=== PATIENT | female | born 1960 | race Caucasian/White ===

== ENCOUNTER 2020-01-09 13:31 | Outpatient (REF) | payer OTHER, SELFPAY ==
--- NOTE | 2020-01-09 | MM_ITS ---
EXAMINATION: MM SCREENING DIGITAL BREAST TOMOSYNTHESIS, BILATERAL CLINICAL INFORMATION: Screening. Asymptomatic. The lifetime risk of breast cancer based on the Tyrer-Cuzick Model is 12%. COMPARISON: Mammography: 08/31/2018, 08/20/2017 TECHNIQUE: Digital breast tomosynthesis is performed in both the craniocaudal and mediolateral oblique views along with computer-aided detection (CAD). Synthesized 2D images are generated from the tomosynthesis. Additional exaggerated right CC view is provided. FINDINGS: There are scattered areas of fibroglandular density (ACR BI-RADS breast composition Category b). There are no significant masses, abnormal calcifications, or other abnormalities. There are scattered bilateral punctate round and coarse round calcifications again seen. Biopsy clip marker central right breast again seen. The synthesized 2-D images have some digital processing artifact lateral anterior left on CC view and retroareolar right MLO view with no correlate on other synthesized view or on the tomography. MM/MM tomosynthesis screening BI IMPRESSION: No mammographic evidence of malignancy. ASSESSMENT: BI-RADS 2: Benign RECOMMENDATION: Routine annual mammography screening. This patient's information was entered into a reminder system with a target due date for their next mammogram.
== END 2020-01-09 13:32 | disposition home or self-care (01) ==
LOC: HO.MAMMO 13:31
PROVIDERS: Visit Provider Internal Medicine
DX: Z12.31 Encounter for screening mammogram for malignant neoplasm of breast (principal)
CPT/HCPCS: 77063; 77067

== ENCOUNTER 2021-02-13 11:53 | Outpatient (REF) | payer OTHER, SELFPAY ==
--- NOTE | ~2021-02-13 | MM_ITS ---
EXAMINATION: MM SCREENING DIGITAL BREAST TOMOSYNTHESIS, BILATERAL CLINICAL INFORMATION: Screening. Asymptomatic. The lifetime risk of breast cancer based on the Tyrer-Cuzick Model is 7%. COMPARISON: Mammography: 01/09/2020, 08/31/2018, 08/20/2017 TECHNIQUE: Digital breast tomosynthesis is performed in both the craniocaudal and mediolateral oblique views along with computer-aided detection (CAD). Synthesized 2D images are generated from the tomosynthesis. FINDINGS: There are scattered areas of fibroglandular density (ACR BI-RADS breast composition Category b). There are no significant masses, abnormal calcifications, or other abnormalities. Parenchymal pattern is similar to prior studies. No developing density. There is a biopsy clip marker again noted central 12:00 right breast mid depth. Scattered bilateral coarse and benign punctate calcifications are again seen. No significant changes. MM/MM tomosynthesis screening BI IMPRESSION: No mammographic evidence of malignancy. ASSESSMENT: BI-RADS 2: Benign RECOMMENDATION: Routine annual mammography screening. This patient's information was entered into a reminder system with a target due date for their next mammogram.
== END 2021-02-13 11:54 | disposition home or self-care (01) ==
LOC: HO.MAMMO 11:53
PROVIDERS: Visit Provider Internal Medicine
DX: Z12.31 Encounter for screening mammogram for malignant neoplasm of breast (principal)
CPT/HCPCS: 77063; 77067

== ENCOUNTER 2021-10-01 06:12 | Outpatient (REF) | payer OTHER, SELFPAY ==
[2021-10-01 06:17] LABS: MANUAL DIFF FLAG NO
[2021-10-01 07:26] LABS: Basophils Percent Auto 0.7 % (0-2); Eosinophils Absolute Auto 0.3 X10*3/uL (0.0-0.4); Eosinophils Percent Auto 7.9 % (0-4); Hematocrit 41.6 % (37.0-47.0); Hemoglobin 13.8 g/dl (12.0-16.0); Imm Gran Abs Auto 0.01 X10*3/uL (0.00-0.03); Imm Gran Pct Auto 0.2 % (0.0-0.4); Lymphocytes Absolute Auto 0.9 X10*3/uL (1.2-4.9); Lymphocytes Percent Auto 22.9 % (20-40); Mean Corpuscular HGB Conc 33.2 g/dl (31.0-35.0); Mean Corpuscular Hemoglobin 30.3 pg (27.0-33.0); Mean Corpuscular Volume 91.4 fL (80.0-98.0); Mean Platelet Volume 11.2 fL (9.4-12.3); Monocytes Absolute Auto 0.2 X10*3/uL (0.1-1.2); Monocytes Percent Auto 5.9 % (2-11); Neutrophils Absolute Auto 2.5 x10*3/uL (2.0-8.3); Neutrophils Percent Auto 62.4 % (45-73); Platelet Count 190 X10*3/uL (160-400); Red Blood Count 4.55 X10*6/uL (4.20-5.50); Red Cell Distribution Width 12.8 % (11.0-16.0); White Blood Count 4.1 X10*3/uL (4.8-10.8)
[2021-10-01 07:45] LABS: Alanine Aminotransferase 21 U/L (0-31); Albumin Level 4.1 g/dL (3.5-5.0); Alkaline Phosphatase 76 U/L (39-117); Anion Gap 14 (12-20); Aspartate Amino Transferase 17 U/L (5-31); Bilirubin Total 0.6 mg/dL (0.0-1.0); Blood Urea Nitrogen 14 mg/dL (9-16); Calcium 9.4 mg/dL (8.4-10.2); Carbon Dioxide 27 mmol/L (22-29); Chloride 105 mmol/L (96-108); Cholesterol 254 mg/dL; Estimated Glomerular Filt Rate > 60; Glucose Fasting 91 mg/dL (60-99); HDL Cholesterol 54 mg/dL; LDL Cholesterol Calculated 172 mg/dl; Potassium 4.3 mmol/L (3.3-5.1); Sodium 142 mmol/L (135-145); Total Protein 6.8 g/dL (6.5-8.0); Triglycerides 144 mg/dL
[2021-10-01 08:08] LABS: Thyroid Stimulating Hormone 7.77 uIU/mL (0.32-4.0); Vitamin D 25-OH Total 33.6 ng/mL (>30)
== END 2021-10-01 06:13 | disposition home or self-care (01) ==
LOC: HO.LAB 06:12
PROVIDERS: PCP Internal Medicine; Visit Provider Internal Medicine
DX: Z00.00 Encounter for general adult medical examination without abnormal findings (principal); E66.9 Obesity, unspecified; Z68.37 Body mass index [BMI] 37.0-37.9, adult; E55.9 Vitamin D deficiency, unspecified
CPT/HCPCS: 36415; 80053; 80061; 82306; 84443; 85025

== ENCOUNTER 2021-11-12 11:14 | Outpatient (REF) | payer OTHER, SELFPAY ==
[2021-11-12 12:27] LABS: Thyroid Stimulating Hormone 3.42 uIU/mL (0.32-4.0); Vitamin D 25-OH Total 34.4 ng/mL (>30)
[2021-11-14 18:46] LABS: Thyroid Peroxidase Antibodies 8 IU/mL (<9)
[2021-11-15 05:17] LABS: Thyroglobulin Antibodies 54 IU/mL (< or = 1)
== END 2021-11-12 11:15 | disposition home or self-care (01) ==
LOC: HO.LAB 11:14
PROVIDERS: PCP Internal Medicine; Visit Provider Internal Medicine
DX: R79.89 Other specified abnormal findings of blood chemistry (principal); E55.9 Vitamin D deficiency, unspecified
CPT/HCPCS: 36415; 82306; 84439; 84443; 86376; 86800

== ENCOUNTER 2021-11-25 08:00 | Outpatient (REF) | payer OTHER, SELFPAY ==
[2021-11-26 13:28] LABS: BV Int Neg Control Negative (Negative); BV Int Pos Control Positive (Positive)
[2021-11-27 13:22] LABS: HPV mRNA E6/E7 rflx Not Detected (Not Detected)
== END 2021-11-25 08:01 | disposition home or self-care (01) ==
LOC: HO.LNP 08:00
PROVIDERS: PCP Internal Medicine; Visit Provider Advanced Practice Midwife
DX: Z01.419 Encounter for gynecological examination (general) (routine) without abnormal findings (principal); Z11.51 Encounter for screening for human papillomavirus (HPV); N95.2 Postmenopausal atrophic vaginitis; N84.1 Polyp of cervix uteri
CPT/HCPCS: 58558; 87480; 87510; 87624; 87660; 88142

== ENCOUNTER 2021-11-25 09:18 | Outpatient (REF) | payer OTHER, SELFPAY | END 2021-11-25 09:19 | disposition home or self-care (01) | LOC: HO.LAB 09:18 | PROVIDERS: Visit Provider Advanced Practice Midwife | DX: N84.1 Polyp of cervix uteri (principal) | CPT/HCPCS: 88305 ==

== ENCOUNTER 2022-02-18 12:08 | Outpatient (REF) | payer OTHER, SELFPAY ==
--- NOTE | ~2022-02-18 | MM_ITS ---
EXAMINATION: MM SCREENING DIGITAL BREAST TOMOSYNTHESIS, BILATERAL CLINICAL INFORMATION: Screening. Asymptomatic. The lifetime risk of breast cancer based on the Tyrer-Cuzick Model is 7.0%. COMPARISON: Mammography: 02/13/2021 and studies dating back to 06/06/2015. TECHNIQUE: Digital breast tomosynthesis is performed in both the craniocaudal and mediolateral oblique views along with computer-aided detection (CAD). Synthesized 2D images are generated from the tomosynthesis. FINDINGS: There are scattered areas of fibroglandular density (ACR BI-RADS breast composition Category b). Within the medial aspect of the right breast, there is an irregular density containing some microcalcifications for which spot magnification views are recommended. Within the left breast deep aspect there are a few new or increasing grouping of microcalcifications for which spot magnification views in craniocaudal and 90-degree mediolateral views are recommended. MM/MM tomosynthesis screening BI IMPRESSION: Bilateral breast findings for further evaluation as described. ASSESSMENT: BI-RADS 0: Incomplete - Need Additional Imaging Evaluation RECOMMENDATION: 1. Additional views of the bilateral breasts. 2. Targeted ultrasound if warranted after review of the additional views. 3. Radiology department staff will contact the patient for additional imaging.
== END 2022-02-18 12:09 | disposition home or self-care (01) ==
LOC: HO.MAMMO 12:08
PROVIDERS: PCP Internal Medicine; Visit Provider Internal Medicine
DX: Z12.31 Encounter for screening mammogram for malignant neoplasm of breast (principal)
CPT/HCPCS: 77063; 77067

== ENCOUNTER 2022-03-03 14:32 | Outpatient (REF) | payer OTHER, SELFPAY ==
--- NOTE | ~2022-03-03 | MM_ITS ---
EXAMINATION: MM DIAGNOSTIC DIGITAL MAMMOGRAPHY, BILATERAL CLINICAL INFORMATION: Recall from screening for calcifications posterior left breast and question calcifications with density medial right breast. TC score 7%. No known family history breast cancer. COMPARISON: Mammography: 02/18/2022, 02/13/2021, 01/09/2020 TECHNIQUE: Digital mammography is performed in the following views: Bilateral magnification CC, right magnification LM, left magnification ML x2. FINDINGS: There are scattered areas of fibroglandular density (ACR BI-RADS breast composition Category b). Additional views right breast show no significant change and fibroglandular pattern from prior studies. No developing density or architectural abnormality or interval focal abnormal calcification. Additional views left breast shows some interval scattered punctate round calcifications posterior central outer breast. There is also grouped benign appearing round and coarse calcification posterior central breast. The calcifications are similar to other calcifications in the left breast and are probably benign. They will be reassessed again in 6 months to include magnification views. Results are discussed with the patient at time of visit. MM/MM added views BI IMPRESSION: Left: -Interval scattered punctate round calcifications and some grouped round and coarse calcifications posterior central outer breast, similar to other calcifications in the breast, and probably benign. Right: -No significant changes from prior studies. ASSESSMENT: BI-RADS 3: Probably Benign RECOMMENDATION: Diagnostic left mammography in 6 months. This patient's information was entered into a reminder system with a target due date for their next mammogram.
== END 2022-03-03 14:33 | disposition home or self-care (01) ==
LOC: HO.MAMMO 14:32
PROVIDERS: Visit Provider Internal Medicine
DX: R92.2 Inconclusive mammogram (principal); R92.1 Mammographic calcification found on diagnostic imaging of breast
CPT/HCPCS: 77066

== ENCOUNTER 2022-09-16 09:28 | Outpatient (AMB) | payer OTHER, SELFPAY ==
--- NOTE | 2022-09-16 09:30 | MHC.PC.OV ---
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 Required: No Accompanied by: Self / Same As Patient Allergies cat dander [CAT] Allergy (Unknown, Verified 09/16/22 09:43) DIFFICULTY BREATHING Medication List - Last Reconciled 09/16/22 by Bertha Ramírez MD beclomethasone dipropionate 40 mcg/actuation mcg inhalation ibuprofen 400 mg PO TID PRN 90 days Tobacco use date assessed: 09/16/22 Dental Screening Dental Screen Date: 09/16/22 Did you have a dental visit in the last 12 months?: Yes Did you have a dental problem in the last 6 months where you did not have access to dental care?: No Was dental information given to patient?: Patient has dentist HPI HPI Comments History of Present Illness Details This is a 61-year-old female that comes for her physical exam. Last mammogram was February 2022 and will be repeated this week. Cologuard done 2021 and was negative. Pap smear done 2021 was HPV negative. No chest pain or shortness of breath. Last menstrual period was 9 years ago. [facility], [facility] Medical History Osteoarthritis Surgical History History of appendectomy Status post ablation of incompetent vein using laser Family History Mother Cardiac arrest Father Poor circulation of extremity Family/Other Mental health disorder Substance use disorder Brother Prostate cancer Social History Housing: House Alcohol intake: current Alcohol intake frequency: a few times a week Alcohol type: other Patient Tobacco Use Status: Former Tobacco user Tobacco use type: Cigarette e-Cigarette/Vaping Use: Never Used Second Hand Smoke Exposure: No service: No Current occupational status: retired Sexual orientation: Lesbian/Edouard/Homosexual Gender identity: Female Cognitive needs: No Hearing needs: No Vision needs: Yes Questionnaire PHQ-9 Over the last 2 weeks, how often have you been bothered by any of the following problems? 1. Little interest or pleasure in doing things: not at all 2. Feeling down, depressed, or hopeless: not at all 3. Trouble falling or staying asleep, or sleeping too much: not at all 4. Feeling tired or having little energy: not at all 5. Poor appetite or overeating: not at all 6. Feeling bad about yourself - or that you are a failure or have let yourself or your family down: not at all 7. Trouble concentrating on things, such as reading the newspaper or watching television: not at all 8. Moving or speaking so slowly that other people could have noticed. Or the opposite - being so fidgety or restless that you have been moving around a lot more than usual: not at all 9. Thoughts that you would be better off or of hurting yourself in some way: not at all Total score: 0 Depression Screening Interpretation: Negative 04605 - PHQ-9 Billing: Yes Source: Developed by Drs. Brett Neville, Ava Dempsey, Víctor Ca and colleagues, with an educational shannan from [employer]. Thrive Questionnaire Date Thrive assessed: 09/16/22 I am a: Patient What is your living situation today?: I have a steady place to live Within the past 12 months, did the food you bought not last and you didn't have the money to get more?: Never true Within the past 12 months, did you worry whether your food would run out before you got money to buy more?: Never true Do you have trouble paying for medicines?: No Do you have trouble getting transportation to medical appointments?: No Do you have trouble paying your heating and electricity bill?: No Do you have trouble taking care of your child, family member or friend?: No Do you have trouble with day-to-day activities such as bathing, preparing meals, shopping, managing finances, etc.?: No Are you currently unemployed and looking for a job?: No Are you interested in more education?: No Please select the resources that you would like help with: None Currently or been in a relationship where the following occur: no concerns reported AUDIT C Alcohol Use Questionnaire (AUDIT-C) 1. How often do you have a drink containing alcohol?: 2-3 times a week 2. How many drinks containing alcohol do you have on a typical day when you are drinking?: 1 or 2 3. How often do you have six or more drinks on one occasion?: Never Total Score: 3 SUN-7 AMB Questionnaire SUN-7 Date SUN - 7 assessed: 09/16/22 Feeling nervous, anxious, or on edge: 0 = Not at all Not being able to stop or control worryin = Not at all Worrying too much about different things: 0 = Not at all Trouble relaxin = Not at all Being so restless that it is hard to sit still: 0 = Not at all Becoming easily annoyed or irritable: 0 = Not at all Feeling afraid as if something awful might happen: 0 = Not at all Total SUN-7 score (0-4 normal; 5-9 mild; 10-14 moderate; 15-21 severe): 0 Source: Developed by Drs. Brett Neville, Ava Dempsey, Víctor Ca and colleagues, with an educational shannan from [employer]. SUN-7 Assessment Billing SUN-7 Assessment Tool: SUN-7 Assessment 91289 Review of Systems Const All systems reviewed & are unremarkable except as noted in HPI and below Eyes Reports no additional complaints, Denies change in vision and Denies other visual disturbances Card Denies chest pain at rest, Denies chest pain with activity, Denies edema, Denies irregular heart rhythm, Denies claudication, Denies dyspnea, Denies dyspnea on exertion, Denies orthopnea, Denies paroxysmal nocturnal dyspnea and Denies slow heart rate Resp Denies cough, Denies dyspnea and Denies dyspnea on exertion GI Denies abdominal pain, Denies change in bowel habits, Denies excessive flatus, Denies nausea and Denies vomiting Denies urinary incontinence, Denies urinary hesitancy and Denies urinary urgency Musc Denies abnormal gait, Denies atrophy, Denies deformity and Denies limited range of motion Skin/Breast Denies bleeding lesions, Denies changing lesions and Denies rash Neuro Denies abnormal gait and Denies lack of coordination Physical exam (Primary Care) Vital Signs: Last Vital Signs BP 124/70 09/16/22 09:33 BMI result Body Mass Index 37.3 Tobacco/Smoking Status: Tobacco use Status Tobacco use date assessed 09/16/22 09/16/22 09:35 Patient Tobacco Use Status Former Tobacco user 09/16/22 09:35 Tobacco use type Cigarette 09/16/22 09:35 e-Cigarette/Vaping Use Never Used 09/16/22 09:35 PHQ-9: PHQ-9 Score PHQ-9: Total score 0 09/16/22 09:35 Depression Screening Interpretation: Negative Thrive Assessment: Date of Thrive Assessment Date Thrive assessed 09/16/22 09/16/22 09:35 Currently or been in a relationship where the following occur: no concerns reported Const Orientation/consciousness: patient oriented x3 HENMT Head: Yes normal to inspection, Yes normocephalic and Yes atraumatic Ears: external ears normal Eyes General: appearance normal, both eyes and all related structures Eyelids: Yes eyelids normal Conjunctivae: conjunctivae normal Neck Neck: Yes normal visual inspection and Yes supple Resp Effort & Inspection: normal respiratory effort Auscultation: clear to auscultation bilaterally Cardio Jugular venous distension: no JVD Rate: regular rate Rhythm: regular rhythm Heart sounds: S1 normal heart sound present and S2 normal heart sound present GI Inspection: Yes normal to inspection Palpation (GI): Soft to palpation and nontender Auscultation: normal bowel sounds Skin General skin exam: no rashes or lesions noted Neuro General: patient oriented x3 and no focal motor deficits Extrem General: Yes full ROM Psych Appearance: grossly normal Assessment and Plan Assessment & Plan (1) Physical exam: Code(s): Z00.00 - Encounter for general adult medical examination without abnormal findings Plan: Repeat in a year Orders: Orders Comprehensive [place]. Panel Fast Today Z00.00 - Encounter for general adult medical examination without abnormal findings Lipid Panel Today Z00.00 - Encounter for general adult medical examination without abnormal findings Free T4 (Free Thyroxine) Today R79.89 - Other specified abnormal findings of blood chemistry Thyroid Stimulating Hormone Today R79.89 - Other specified abnormal findings of blood chemistry XR DEXA axial skeleton Today N95.9 - Unspecified menopausal and perimenopausal disorder Medications: Refilled ibuprofen 400 mg PO TID 90 days PRN 270 tabs 1RF fever or pain Coding Level of Care Code Est Pt Prev Care 40-64y(32361) Diagnoses Physical exam Z00.00 Additional Codes SUN-7 Assessment Billing - SUN-7 Assessment Tool: SUN-7 Assessment [id number] ([id number]) Time Spent (min) 33
[2022-09-16 09:33] VITALS: BP 124/70; BMI 37.3
== END 2022-09-16 09:57 | disposition home or self-care (01) ==
PROVIDERS: PCP Internal Medicine; Visit Provider Internal Medicine
DX: Z00.00 Encounter for general adult medical examination without abnormal findings (principal)
CPT/HCPCS: 99396

== ENCOUNTER 2022-09-18 09:59 | Outpatient (REF) | payer OTHER, SELFPAY ==
--- NOTE | ~2022-09-18 | MM_ITS ---
EXAMINATION: BONE DENSITOMETRY CLINICAL INDICATION: Menopause. COMPARISON: Baseline BD dated 01/31/2013. TECHNIQUE: Using a Mixbook DXA System (software version: 13.1) manufactured by [employer], dual-energy x-ray absorptiometry was performed of the lumbar spine and left hip. The images are of good technical quality. Summary results are attached. FINDINGS: LEFT FEMUR, NECK: Current: BMD 1.076 g/cm2, Z-score 1.2, T-score 0.3, normal. Baseline: BMD 1.065 g/cm2. LEFT FEMUR, TOTAL: Current: BMD 1.254 g/cm2, Z-score 2.6, T-score 2.0, normal, 2.5% increase from baseline (<5% change is not significant). Baseline: BMD 1.224 g/cm2. AP SPINE L1-L4: Current: BMD 1.345 g/cm2, Z-score 2.2, T-score 1.4, normal, 0.7% increase from baseline (<5% change is not significant). Baseline: BMD 1.336 g/cm2. IDENTIFIED RISK FACTORS: Menopause. HISTORY OF FRACTURE: None listed. MEDICATIONS: Calcium, multivitamin. MM/XR DEXA axial skeleton IMPRESSION: 1. DIAGNOSIS: Normal bone density based on the lowest T-score value of 0.3 in the femoral neck applying World Health Organization criteria. 2. 10-YEAR FRACTURE RISK PREDICTION, FRAX: According to the guidelines, FRAX calculation should only be performed on patients in the osteopenia bone density category. Therefore, FRAX was not performed on this patient. 3. Treatment Recommendations: NOF guidelines recommend consideration for treatment in postmenopausal women and men age 50 and older presenting with the following: -A hip or vertebral (clinical or morphometric) fracture. -T-score less than or equal to -2.5 at the femoral neck or spine after appropriate evaluation to exclude secondary causes. -Low bone mass at the hip or spine and a 10-year fracture probability by FRAX of greater than or equal to 3% for hip fracture or greater than or equal to 20% for major osteoporotic fracture based on the [place] adapted WHO algorithm. 4. Other Recommendations: All treatment decisions require clinical judgment and consideration of individual patient factors, including patient preferences, comorbidities, previous drug use, risk factors not captured in the FRAX model (e.g. frailty, falls, vitamin D deficiency, increased bone turnover, interval significant decline in bone density) and possible under or overestimation of fracture risk by FRAX. FUTURE SCAN RECOMMENDATION: People with diagnosed cases of osteoporosis or at high risk for fracture should have regular bone mineral density tests. For patients eligible for Medicare, routine testing is allowed once every 2 years. The testing frequency can be increased to one year for patients who have rapidly progressing disease, those who are receiving or discontinuing medical therapy to restore bone mass, or have additional risk factors.
--- NOTE | ~2022-09-18 | MM_ITS ---
EXAMINATION: MM DIAGNOSTIC DIGITAL BREAST TOMOSYNTHESIS, LEFT CLINICAL INFORMATION: Recommended short interval follow-up left mammography to evaluate calcifications. The lifetime risk of breast cancer based on the Tyrer-Cuzick Model is 7%. COMPARISON: Mammography: This study is compared with prior mammograms from February 2022 and mammograms from 2017, 2018, 2019 and 2020. TECHNIQUE: Digital breast tomosynthesis is performed in both the craniocaudal and mediolateral oblique views along with computer-aided detection (CAD). Synthesized 2D images are generated from the tomosynthesis. CC and lateral magnification imaging of the left breast. FINDINGS: There are scattered areas of fibroglandular density (ACR BI-RADS breast composition Category b). There are scattered benign calcifications in the left breast with no significant interval changes. There are no significant masses, abnormal calcifications, or other abnormalities. Results are provided to the patient at time of visit by the technologist. MM/MM tomosynthesis diagnostic LT IMPRESSION: No mammographic evidence of malignancy. ASSESSMENT: BI-RADS BI-RADS 2 - Benign Findings RECOMMENDATION: 1 year F/U The next routine bilateral annual screening mammogram is due in February 2023. This patient's information was entered into a reminder system with a target due date for their next mammogram.
== END 2022-09-18 10:00 | disposition home or self-care (01) ==
LOC: HO.MAMMO 09:59
PROVIDERS: PCP Internal Medicine; Visit Provider Internal Medicine
DX: Z13.820 Encounter for screening for osteoporosis (principal); Z78.0 Asymptomatic menopausal state; R92.1 Mammographic calcification found on diagnostic imaging of breast
CPT/HCPCS: 77061; 77065; 77080

== ENCOUNTER → 2022-09-18 10:00 | Outpatient (BNV) | payer OTHER, SELFPAY | PROVIDERS: PCP Internal Medicine; Visit Provider Radiology Diagnostic Radiology | DX: N95.9 Unspecified menopausal and perimenopausal disorder (principal) | CPT/HCPCS: 77065; 77080 ==

== ENCOUNTER 2022-10-02 06:57 | Outpatient (REF) | payer OTHER, SELFPAY ==
[2022-10-02 08:56] LABS: Alanine Aminotransferase 23 U/L (0-31); Albumin Level 3.9 g/dL (3.5-5.0); Alkaline Phosphatase 68 U/L (39-117); Anion Gap 13 (12-20); Aspartate Amino Transferase 19 U/L (5-31); Bilirubin Total 0.5 mg/dL (0.0-1.0); Blood Urea Nitrogen 16 mg/dL (9-16); Calcium 9.6 mg/dL (8.4-10.2); Carbon Dioxide 24 mmol/L (22-29); Chloride 110 mmol/L (96-108); Cholesterol 212 mg/dL; Estimated Glomerular Filt Rate > 60; Glucose Fasting 91 mg/dL (60-99); HDL Cholesterol 50 mg/dL; LDL Cholesterol Calculated 144 mg/dl; Potassium 4.1 mmol/L (3.3-5.1); Sodium 143 mmol/L (135-145); Total Protein 6.9 g/dL (6.5-8.0); Triglycerides 92 mg/dL
[2022-10-02 09:15] LABS: Free T4 (Free Thyroxine) 0.83 ng/dL (0.71-1.85); Thyroid Stimulating Hormone 4.04 uIU/mL (0.32-4.0)
== END 2022-10-02 06:58 | disposition home or self-care (01) ==
LOC: HO.LAB 06:57
PROVIDERS: PCP Internal Medicine; Visit Provider Internal Medicine
DX: Z00.00 Encounter for general adult medical examination without abnormal findings (principal); R94.6 Abnormal results of thyroid function studies; R79.89 Other specified abnormal findings of blood chemistry
CPT/HCPCS: 36415; 80053; 80061; 84439; 84443

== ENCOUNTER 2023-01-07 08:02 | Outpatient (AMB) | payer OTHER, SELFPAY ==
--- NOTE | 2023-01-07 08:04 | A.OFFVIS_ITS ---
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 She is doing well with no water and sewer systems superintendent concerns. Attempting to eat a healthy diet with calcium and vitamin D and stays active with exercise. She is taking One A Day Women Supplement . Currently sexually active. Reports vaginal dryness. She is using OTC replens moisturizer, with relief. Denies vaginal irritation. Last pap smear; 11/26/2021~negative. Last mammogram; 09/18/22~2Benign Findings. Colonoscopy is UTD. Denies any family history of breast, ovarian or colon cancer. Restless knees. Associated with cracking . Taking OTC tylenol for the pain when it occurs. She plans to follow up with her PCP for further eval. [facility] Medical History Osteoarthritis Surgical History Status post ablation of incompetent vein using laser History of appendectomy Family History Mother Cardiac arrest Father Poor circulation of extremity Family/Other Mental health disorder Substance use disorder Brother Prostate cancer Social History Housing: House Alcohol intake: current Alcohol intake frequency: a few times a week Alcohol type: other Patient Tobacco Use Status: Former Tobacco user Tobacco use type: Cigarette e-Cigarette/Vaping Use: Never Used Second Hand Smoke Exposure: No service: No Current occupational status: retired Sexual orientation: Lesbian/Edouard/Homosexual Gender identity: Female Cognitive needs: No Hearing needs: No Vision needs: Yes Female Reproductive History Menstrual Menopause type: natural Total pregnancies: 0 Date of last pap smear: 11/25/21 (neg pap and hpv) Date of Mammogram: 09/18/22 (Birad 2) Date of last Bone Density Screenin09/18/22 Review of Systems Const All systems reviewed & are unremarkable except as noted in HPI and below Reports as per HPI Eyes Reports no additional complaints ENT Reports no additional complaints Card Reports no additional complaints Resp Reports no additional complaints GI Reports as per HPI and Reports no additional complaints Reports as per HPI Musc Reports no additional complaints Skin/Breast Reports as per HPI Neuro Reports no additional complaints Psych Reports no additional complaints Endo Reports no additional complaints Wing/Lymph Reports no additional complaints Aller/Immun Reports no additional complaints Physical Exam Vital Signs: Last Vital Signs BP 116/74 01/07/23 08:05 BMI result Body Mass Index 36.1 Const General: cooperative, healthy appearing, no acute distress, well developed and alert Orientation/consciousness: patient oriented x3 HEENT Head: Yes normal to inspection Eyes General: appearance normal, both eyes and all related structures Neck Neck: Yes normal visual inspection Thyroid: Thyroid normal Chest Chest palpation & inspection: normal inspection of the chest and other (no puckering, dimpling, peau de orange, retraction, discharge, masses) Breast/axilla inspection: normal inspection of the breasts Breast/axilla palpation: normal palpation of the breasts Resp Effort & Inspection: normal respiratory effort GI Inspection: Yes normal to inspection Palpation (GI): Soft to palpation Rectal Exam - Female: deferred General: Yes bladder normal to palpation External Female Exam: normal external appearance and normal appearance of the urethra Speculum Exam - Vagina: normal appearance of the vagina, normal palpation and normal vaginal discharge Speculum Exam - Cervix: normal appearance of the cervix, normal palpation and Other cervical findings present (atrophic changes ) Bimanual exam- vagina & uterus: normal bimanual exam, normal palpation, uterine size normal, bladder normal to palpation, normal palpation and non-tender Bimanual Exam- Adnexa, other: no masses Skin General skin exam: no rashes or lesions noted Rashes: other (very slight redness on the left labial increased redness on the right labia) Neuro General: patient oriented x3 Cognition (Neuro): normal cognition Extrem General: Yes normal to inspection Psych Attitude: cooperative Thought process: Normal thought process present Assessment & Plan Assessment & Plan (1) Encounter for gynecological examination: Code(s): Z01.419 - Encounter for gynecological examination (general) (routine) without abnormal findings Plan: Discussed: Current recommendations for pap smears per ASCCP guidelines. Breast awareness, periodic self breast exams and yearly mammogram. Maintain a healthy lifestyle, well balanced diet including Calcium 1,200 mg and Vitamin D 600 IU daily, and routine exercise. Contact the office with any postmenopausal bleeding. All of her questions and concerns were addressed to the best of my ability. She will return in one year for AG. (2) Vulvar rash: Code(s): R21 - Rash and other nonspecific skin eruption Plan: Advised her to use OTC vaseline or aquaphor for up to a week. If not improving use OTC jock itch cream. Coding Level of Care Code Est Pt Prev Care 40-64y(24762) Diagnoses Encounter for gynecological examination Z01.419 Vulvar rash R21
[2023-01-07 08:05] VITALS: BP 116/74; BMI 36.1
== END 2023-01-07 08:35 | disposition home or self-care (01) ==
PROVIDERS: PCP Internal Medicine; Visit Provider Advanced Practice Midwife
DX: Z01.419 Encounter for gynecological examination (general) (routine) without abnormal findings (principal); R21 Rash and other nonspecific skin eruption
CPT/HCPCS: 99396

== ENCOUNTER → 2023-01-07 08:02 | Outpatient (BNVA) | payer OTHER, SELFPAY | PROVIDERS: PCP Internal Medicine; Visit Provider Advanced Practice Midwife ==

== ENCOUNTER 2023-03-17 08:56 | Outpatient (REF) | payer OTHER, SELFPAY ==
--- NOTE | ~2023-03-17 | MM_ITS ---
EXAMINATION: MM SCREENING DIGITAL BREAST TOMOSYNTHESIS, BILATERAL CLINICAL INFORMATION: Screening. Asymptomatic. COMPARISON: Mammography: This study is compared with prior exams dating back to 2018. TECHNIQUE: Digital breast tomosynthesis is performed in both the craniocaudal and mediolateral oblique views along with computer-aided detection (CAD). Synthesized 2D images are generated from the tomosynthesis. FINDINGS: There are scattered areas of fibroglandular density (ACR BI-RADS breast composition Category b). There are no significant masses, abnormal calcifications, or other abnormalities. There is tissue marker present in the right breast from prior benign percutaneous biopsy. Scattered benign calcifications are present in each breast. MM/MM tomosynthesis screening BI IMPRESSION: No mammographic evidence of malignancy. ASSESSMENT: BI-RADS BI-RADS 2 - Benign Findings RECOMMENDATION: Routine annual mammography screening. 1 year F/U This examination should not preclude the clinical evaluation of a suspicious palpable abnormality. This patient's information was entered into a reminder system with a target due date for their next mammogram.
== END 2023-03-17 08:57 | disposition home or self-care (01) ==
LOC: HO.MAMMO 08:56
PROVIDERS: PCP Internal Medicine; Visit Provider Internal Medicine
DX: Z12.31 Encounter for screening mammogram for malignant neoplasm of breast (principal)
CPT/HCPCS: 77063; 77067

== ENCOUNTER → 2023-03-17 09:00 | Outpatient (BNV) | payer OTHER, SELFPAY | PROVIDERS: PCP Internal Medicine; Visit Provider Radiology Diagnostic Radiology | DX: Z12.31 Encounter for screening mammogram for malignant neoplasm of breast (principal) | CPT/HCPCS: 77063; 77067 ==

== ENCOUNTER 2023-09-21 08:24 | Outpatient (AMB) | payer BC, SELFPAY ==
--- NOTE | 2023-09-21 08:25 | A.OFFPC_ITS ---
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 Accompanied by: Self / Same As Patient Allergies cat dander [CAT] Allergy (Unknown, Verified 09/21/23 08:45) DIFFICULTY BREATHING Medication List - Last Reconciled 09/21/23 by Bertha Ramírez MD beclomethasone dipropionate 40 mcg/actuation mcg inhalation calcium carbonate (Calcium 500) 500 mg PO DAILY flaxseed oil 1,000 mg PO DAILY fluoride (sodium) 1.1% 1 appl PO DAILY 30 days ibuprofen 400 mg PO TID PRN 90 days multivitamin 1 tab PO DAILY triamcinolone acetonide 0.1% 1 appl topical BID-TID Tobacco use date assessed: 09/21/23 Dental Screening Dental Screen Date: 09/21/23 Did you have a dental visit in the last 12 months?: Yes Did you have a dental problem in the last 6 months where you did not have access to dental care?: No Was dental information given to patient?: Patient has dentist HPI HPI Comments History of Present Illness Details This is a 62-year-old female that comes for her physical exam. Mammogram done 2023 and was normal. Cologuard done 2021 and was normal. Next Cologuard should be 2024. Pap smear done 2021 was normal. No chest pain or shortness on breath. She is obese with a BMI of 37.7 and was advised to do diet and exercise to reach BMI goal less than 30. She complains of bilateral hearing loss and would like a referral for a hearing test. [facility] Medical History (Updated 09/21/23 @ 09:01 by Bertha Ramírez MD) Osteoarthritis Surgical History Status post ablation of incompetent vein using laser History of appendectomy Family History Mother Cardiac arrest Father Poor circulation of extremity Family/Other Mental health disorder Substance use disorder Brother Prostate cancer Social History Housing: House Alcohol intake: current Alcohol intake frequency: a few times a week Alcohol ty pe: other Patient Tobacco Use Status: Former Tobacco user Tobacco use type: Cigarette e-Cigarette/Vaping Use: Never Used Second Hand Smoke Exposure: No service: No Current occupational status: retired Sexual orientation: Lesbian/Edouard/Homosexual Gender identity: Female Cognitive needs: No Hearing needs: No Vision needs: Yes Questionnaire PHQ-9 Over the last 2 weeks, how often have you been bothered by any of the following problems? 1. Little interest or pleasure in doing things: not at all 2. Feeling down, depressed, or hopeless: not at all 3. Trouble falling or staying asleep, or sleeping too much: not at all 4. Feeling tired or having little energy: not at all 5. Poor appetite or overeating: not at all 6. Feeling bad about yourself - or that you are a failure or have let yourself or your family down: not at all 7. Trouble concentrating on things, such as reading the newspaper or watching television: not at all 8. Moving or speaking so slowly that other people could have noticed. Or the opposite - being so fidgety or restless that you have been moving around a lot more than usual: not at all 9. Thoughts that you would be better off or of hurting yourself in some way: not at all Total score: 0 Depression Screening Interpretation: Negative Depression Screening Done: Yes 15549 - PHQ-9 Billing: Yes Source: Developed by Drs. Brett Neville, Ava Dempsey, Víctor Ca and colleagues, with an educational shannan from [employer]. Thrive Questionnaire Date Thrive assessed: 09/21/23 I am a: Patient What is your living situation today?: I have a steady place to live Within the past 12 months, did the food you bought not last and you didn't have the money to get more?: Never true Within the past 12 months, did you worry whether your food would run out before you got money to buy more?: Never true Do you have trouble paying for medicines?: No Do you have trouble getting transportation to medical appointments?: No Do you have trouble paying your heating and electricity bill?: No Do you have trouble taking care of your child, family member or friend?: No Do you have trouble with day-to-day activities such as bathing, preparing meals, shopping, managing finances, etc.?: No Are you currently unemployed and looking for a job?: No Are you interested in more education?: No Please select the resources that you would like help with: None Currently or been in a relationship where the following occur: No concerns reported THRIVE Score: 0 AUDIT C Alcohol Use Questionnaire (AUDIT-C) 1. How often do you have a drink containing alcohol?: Monthly or less 2. How many drinks containing alcohol do you have on a typical day when you are drinking?: 1 or 2 3. How often do you have six or more drinks on one occasion?: Never Total Score: 1 Score Reviewed/Action Taken: No SUN-7 AMB Questionnaire SUN-7 Date SUN - 7 assessed: 09/21/23 Feeling nervous, anxious, or on edge: 0 = Not at all Not being able to stop or control worryin = Not at all Worrying too much about different things: 0 = Not at all Trouble relaxin = Not at all Being so restless that it is hard to sit still: 0 = Not at all Becoming easily annoyed or irritable: 0 = Not at all Feeling afraid as if something awful might happen: 0 = Not at all Total SUN-7 score (0-4 normal; 5-9 mild; 10-14 moderate; 15-21 severe): 0 Source: Developed by Drs. Brett Neville, Ava Dempsey, Víctor Ca and colleagues, with an educational shannan from [employer]. SUN-7 Assessment Billing SUN-7 Assessment Tool: SUN-7 Assessment 59761 Review of Systems Const All systems reviewed & are unremarkable except as noted in HPI and below Card Denies chest pain at rest, Denies chest pain with activity, Denies edema, Denies irregular heart rhythm, Denies claudication, Denies dyspnea, Denies dyspnea on exertion, Denies orthopnea, Denies paroxysmal nocturnal dyspnea and Denies slow heart rate Resp Denies cough, Denies dyspnea and Denies dyspnea on exertion GI Denies abdominal pain, Denies change in bowel habits, Denies excessive flatus, Denies nausea and Denies vomiting Neuro Denies lack of coordination Physical exam (Primary Care) Vital Signs: Last Vital Signs BP 120/82 09/21/23 08:26 BMI result Body Mass Index 37.7 BMI Assessment/Plan discussion: High BMI High, discussed plan: lifestyle, weight reduction, dietary and physical activity Tobacco/Smoking Status: Tobacco use Status Tobacco use date assessed 09/21/23 09/21/23 08:30 Patient Tobacco Use Status Former Tobacco user 09/21/23 08:30 Tobacco use type Cigarette 09/21/23 08:30 e-Cigarette/Vaping Use Never Used 09/21/23 08:30 PHQ-9: PHQ-9 Score PHQ-9: Total score 0 09/21/23 08:30 Depression Screening Interpretation: Negative Thrive Assessment: Date of Thrive Assessment Date Thrive assessed 09/21/23 09/21/23 08:30 Currently or been in a relationship where the following occur: No concerns reported [facility] Head: Yes normal to inspection, Yes normocephalic and Yes atraumatic Ears: external ears normal Eyes General: appearance normal, both eyes and all related structures Eyelids: Yes eyelids normal Conjunctivae: conjunctivae normal Neck Neck: Yes normal visual inspection and Yes supple Resp Effort & Inspection: normal respiratory effort Auscultation: clear to auscultation bilaterally Cardio Jugular venous distension: no JVD Rate: regular rate Rhythm: regular rhythm Heart sounds: S1 normal heart sound present and S2 normal heart sound present GI Inspection: Yes normal to inspection Palpation (GI): Soft to palpation and nontender Auscultation: normal bowel sounds Skin General skin exam: no rashes or lesions noted Neuro General: no focal motor deficits Extrem General: Yes full ROM Psych Appearance: grossly normal Assessment and Plan Assessment & Plan (1) Physical exam: Code(s): Z00.00 - Encounter for general adult medical examination without abnormal findings Plan: Repeat in a year. (2) Hearing loss: Code(s): H91.90 - Unspecified hearing loss, unspecified ear Qualifiers: Hearing loss type: unspecified Laterality: bilateral Qualified Code(s): H91.93 - Unspecified hearing loss, bilateral Plan: Refer for hearing test. Orders: Orders Comprehensive [place]. Panel Fast Today Z00.00 - Encounter for general adult medical examination without abnormal findings Free T4 (Free Thyroxine) Today R79.89 - Other specified abnormal findings of blood chemistry Thyroglobulin Antibodies Today R79.89 - Other specified abnormal findings of blood chemistry Lipid Panel Today Z00.00 - Encounter for general adult medical examination without abnormal findings Thyroid Stimulating Hormone Today R79.89 - Other specified abnormal findings of blood chemistry Thyroid Peroxidase Antibodies Today R79.89 - Other specified abnormal findings of blood chemistry Referrals Speech and Hearing Referral H91.90 - Unspecified hearing loss, unspecified ear Coding Level of Care Code Est Pt Level 3 (88314) Est Pt Prev Care 40-64y(76237) Diagnoses Physical exam Z00.00 Bilateral hearing loss, unspecified hearing loss type H91.93 Hearing loss type: unspecified Laterality: bilateral Additional Codes SUN-7 Assessment Billing - SUN-7 Assessment Tool: SUN-7 Assessment [id number] ([id number]) Time Spent (min) 34
[2023-09-21 08:26] VITALS: BP 120/82; BMI 37.7
== END 2023-09-21 08:58 | disposition home or self-care (01) ==
PROVIDERS: PCP Internal Medicine; Visit Provider Internal Medicine
DX: Z00.00 Encounter for general adult medical examination without abnormal findings (principal); H91.93 Unspecified hearing loss, bilateral
CPT/HCPCS: 99396

== ENCOUNTER 2023-09-24 06:41 | Outpatient (REF) | payer BC, SELFPAY ==
[2023-09-24 07:52] LABS: Alanine Aminotransferase 25 U/L (0-31); Alkaline Phosphatase 86 U/L (39-117); Anion Gap 11 (12-20); Aspartate Amino Transferase 22 U/L (5-31); Bilirubin Total 0.4 mg/dL (0.0-1.0); Blood Urea Nitrogen 12 mg/dL (9-16); Calcium 10.1 mg/dL (8.4-10.2); Carbon Dioxide 30 mmol/L (22-29); Chloride 106 mmol/L (96-108); Cholesterol 216 mg/dL (<200); Estimated Glomerular Filt Rate > 60; Glucose Fasting 93 mg/dL (60-99); HDL Cholesterol 57 mg/dL (>40); LDL Cholesterol Calculated 139 mg/dL (<100); Potassium 4.2 mmol/L (3.3-5.1); Sodium 143 mmol/L (135-145); Total Protein 6.8 g/dL (6.5-8.0); Triglycerides 104 mg/dL (<150)
[2023-09-24 08:09] LABS: Free T4 (Free Thyroxine) 0.85 ng/dL (0.71-1.85); Thyroid Stimulating Hormone 5.93 uIU/mL (0.32-4.0)
[2023-09-25 09:49] LABS: Thyroglobulin Antibodies 8 IU/mL (< or = 1); Thyroid Peroxidase Antibodies 14 IU/mL (<9)
== END 2023-09-24 06:42 | disposition home or self-care (01) ==
LOC: HO.LAB 06:41
PROVIDERS: PCP Internal Medicine; Visit Provider Internal Medicine
DX: Z00.00 Encounter for general adult medical examination without abnormal findings (principal); Z13.6 Encounter for screening for cardiovascular disorders; R94.6 Abnormal results of thyroid function studies
CPT/HCPCS: 36415; 80053; 80061; 84439; 84443; 86376; 86800

== ENCOUNTER 2023-09-30 09:23 | Outpatient (REF) | payer BC, SELFPAY | END 2023-09-30 09:24 | disposition home or self-care (01) | LOC: HO.SH 09:23 | PROVIDERS: Visit Provider Internal Medicine | DX: Z01.118 Encounter for examination of ears and hearing with other abnormal findings (principal); H93.293 Other abnormal auditory perceptions, bilateral | CPT/HCPCS: 92557 ==

== ENCOUNTER 2023-11-09 07:02 | Outpatient (REF) | payer BC, SELFPAY ==
[2023-11-09 08:25] LABS: Free T4 (Free Thyroxine) 0.94 ng/dL (0.71-1.85); Thyroid Stimulating Hormone 4.67 uIU/mL (0.32-4.0)
[2023-11-11 07:02] LABS: Thyroglobulin Antibodies 7 IU/mL (< or = 1); Thyroid Peroxidase Antibodies 9 IU/mL (<9)
== END 2023-11-09 07:03 | disposition home or self-care (01) ==
LOC: HO.LAB 07:02
PROVIDERS: PCP Internal Medicine; Visit Provider Internal Medicine
DX: R79.89 Other specified abnormal findings of blood chemistry (principal)
CPT/HCPCS: 36415; 84439; 84443; 86376; 86800

== ENCOUNTER 2023-12-23 07:09 | Outpatient (REF) | payer BC, SELFPAY ==
[2023-12-23 09:06] LABS: Thyroid Stimulating Hormone 3.35 uIU/mL (0.32-4.0)
== END 2023-12-23 07:10 | disposition home or self-care (01) ==
LOC: HO.LAB 07:09
PROVIDERS: PCP Internal Medicine; Visit Provider Internal Medicine
DX: E06.3 Autoimmune thyroiditis (principal)
CPT/HCPCS: 36415; 84443

== ENCOUNTER 2024-02-02 13:00 | Outpatient (AMB) | payer BC, SELFPAY ==
[2024-02-02 14:02] VITALS: BP 112/66; PULSE 74; TEMP 36.1; O2SAT 97; BMI 37.2
--- NOTE | 2024-02-02 14:02 | MHC.OFFWIV ---
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 Pt states she was in [place] on a vacation on 01/01/24 and came home with a cold around 01/03 and states since then she has been having a lingering cough. 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 While every effort has been made to ensure accuracy, machine bookkeeper errors may have been included. The patient is a 63 year old female who presents to the clinic today with cough for the past month after URI. She denies fever, chills, shortness of breath. She denies any sputum production. She did try Mucinex last night but stat seemed to give her an upset stomach. She had traveled recently and developed the upper respiratory infection shortly after. She does have a history of asthma as a child. Has not had an albuterol inhaler in many years.. [facility] Medical History Osteoarthritis Surgical History Status post ablation of incompetent vein using laser History of appendectomy Family History Mother Cardiac arrest Father Poor circulation of extremity Family/Other Mental health disorder Substance use disorder Brother Prostate cancer Social History Housing: House Alcohol intake: current Alcohol intake frequency: a few times a week Alcohol type: other Patient Tobacco Use Status: Former Tobacco user Tobacco use type: Cigarette e-Cigarette/Vaping Use: Never Used Second Hand Smoke Exposure: No service: No Current occupational status: retired Sexual orientation: Lesbian/Edouard/Homosexual Gender identity: Female Cognitive needs: No Hearing needs: No Vision needs: Yes Review of Systems Const All systems reviewed & are unremarkable except as noted in HPI and below Physical Exam Vital Signs: Last Vital Signs Temp 97.0 F 02/02/24 14:02 Pulse 74 02/02/24 14:02 BP 112/66 02/02/24 14:02 Pulse Ox 97 02/02/24 14:02 Oxygen Delivery Method Room Air 02/02/24 14:02 BMI result Body Mass Index 37.2 Const General: cooperative, healthy appearing, comfortable, no acute distress and well developed Orientation/consciousness: patient oriented x3 Limitations: no limitations HEENT Head: Yes normal to inspection Ears: hearing grossly normal bilaterally General nose exam: Normal external nose present Face and sinus: Yes normal facial exam Eyes General: appearance normal, both eyes and all related structures Neck Neck: Yes normal visual inspection and Yes full ROM Resp Effort & Inspection: normal respiratory effort and able to speak in complete sentences Auscultation: clear to auscultation bilaterally (Wheeze that clears with cough) Cardio Rate: regular rate Rhythm: regular rhythm Heart sounds: normal S1 and S2 Neuro General: patient oriented x3 Assessment & Plan Assessment & Plan (1) Reactive airway disease: Code(s): J45.909 - Unspecified asthma, uncomplicated Qualifiers: Asthma severity: mild Asthma persistence: intermittent Asthma complication type: with acute exacerbation Qualified Code(s): J45.21 - Mild intermittent asthma with (acute) exacerbation Plan: Likely responding to recent URI. We will try a short burst of prednisone for symptomatic management, as well as albuterol inhaler. Advised patient to follow up with worsening symptoms or failure to resolve. Plan See above for full details and plan. Medications: New prednisone 40 mg (2 x 20 mg) PO DAILY 3 days 6 tabs 0RF albuterol sulfate 90 mcg/actuation 1 - 2 puffs inhalation QID PRN 6.7 grams 0RF Shortness Of Breath Or Wheezing Coding Level of Care Code New Pt Level 3 (33163) Diagnoses Mild intermittent reactive airway disease with acute exacerbation J45.21 Asthma severity: mild Asthma persistence: intermittent Asthma complication type: with acute exacerbation
--- OUTSIDE RECORDS SUMMARY | 2024-02-03 02:22 | XMS_ITS | Continuity of Care Document ---
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 Name Role Phone Deandre HARDY, RVT, ANCELMO, Brett Unavailable U navailable Allergies, Adverse Reactions, Alerts Substance Reaction Status Criticality No Known Allergies Active No Inform ation Medications Medication Instructions Dosage Effective Dates (start - stop) Status Comments TRIAMCINOLONE (unknown strength) Not Available - Active ibuprofen 400 mg tablet - Active Procedures Procedure Date Office/Outpt E&M Established 15 Mins- CT & [place] Duplex Scan-extrem Veins; Comp- CT & [place] Duplex Scan-extrem Veins; Uni/ Inj Scleros Solut; Mx Veins 1 4 Ultrason Guidan Needle Bx-rad 4 Duplex Scan-extrem Veins; Uni/ 24 Inj Scleros Solut; Mx Veins 1 4 Ultrason Guidan Needle Bx-rad 4 Office/Outpt E&M Established 15 Mins Feb Duplex Scan-extrem Veins; Comp 24 Duplex Scan-extrem Veins; Uni/ 23 Varithena, Single Truncal Vein 23 Endovenous Laser, 1st Vein Endovenous laser vein addon Phleb Veins - Extrem - To 20 Inj Scleros Solut; Mx Veins 1 3 Duplex Scan-extrem Veins; Uni/ Nov-07-20 23 Endovenous Laser, 1st Vein Endovenous Laser, 1st Vein Endovenous laser vein addon Offic/outpt E&m Estab 5 Min Trial - Tele medicine Office/Outpt E&M Established 15 Mins Jul Duplex Scan-extrem Veins; Comp Office/Outpt E&M Established 15 Mins June Advance Directives Directive Yes / No Effective Date File Name No Information Encounters Encounter Description Practice Location Reason(s) For Visit Diagnoses Date Provider Providers Copied on Encounter Office/Outpt E&M Established 15 Mins- CT & [place] [facility], [address] [place] [address] Dr Kline [address]Jermaine [place], [id number], [place] tel:[phone] CVR [facility] Venous insufficienc y (chronic) (peripheral) 4 Deandre HARDY RVT, ANCELMO West. [address] [place] [address], [facility] [place], [id number], [place]. tel:[phone] Referring Provider: Bertha Zepeda MD, [address] [facility] , [address] [place] [address] D/B/A: [place], [address]. tel:[phone] [facility], [address] [place] [address] Dr Kline [address]Suite Jermaine Godoy [place], [id number], [place] tel:[phone] CVR - [facility] Encounter for follow-up examination after completed treatment for conditions other than malignant neVaricose veins of bilateral lower extremities with pain 4 Deandre HARDY RVT, ANCELMO West. [address] [place] [address] [facility], [facility] [place], [id number], [place]. tel:[phone] Referring Provider: Bertha Zepeda MD, [address] [facility] , [address] [place] [address] D/B/A: [place], [address]. tel:[phone] Jenn Ch[facility], [address] [place] [address] Dr Kline [address]Suite Jermaine [place], [id number], [place] tel:[phone] CVR - [facility] Encounter for follow-up examination after completed treatment for conditions other than malignant neVaricose veins of left lower extremity with pain Apr- 4 Deandre HARDY RVT, ANCELMO West. [address] [facility] [address], [address], [facility], [place], [id number], [place]. tel:[phone] Referring Provider: Bertha Zepeda MD, [address] [facility] [address], [address] West D/B/A: carlosyomiller [place], [address]. tel:[phone] [facility], [address] [place] [address] [address]Suite Jermaine Godoy [place], [id number], [place] tel:[phone] CVR - [facility] Chronic venous hypertension (idiopathic) with inflammation of left lower extremity 4 Deandre HARDY RVT, ANCELMO West. [address] [facility], [address], [facility], [place], [id number], [place]. tel:[phone] Referring Provider: Bertha Zepeda MD, [address] [facility] [address], [address] [place] D/B/A: carlosyomiller [place], [address]. tel:[phone] [facility], [address] [place] [address] [address]Suite Jermaine Godoy [place], [id number], [place] tel:[phone] CVR - [facility] Encounter for follow-up examination after completed treatment for conditions other than malignant nePain in right leg 4 Deandre HARDY RVT, ANCELMO West. [address] [facility] [address], [address], [facility] [place], [place], [id number], [place]. tel:[phone] Referring Provider: Bertha Zepeda MD, [address] [facility] [address], [address] West D/B/A: [place], [address]. tel:[phone] Jenn [facility], [address] [place] [address] [address]Jermaine [place], [id number], [place] tel:[phone] CVR - [facility] Varicose veins of right lower extremity with other complication s 4 Deandre HARDY RVT, ANCELMO West. [address] [facility], [address], [place], [place], [id number], [place]. tel:[phone] Referring Provider: Bertha Zepeda MD, [address] [facility] [address], [address] [place] D/B/A: nora [place], [address]. tel:[phone] Office/Outpt E&M Established 15 Mins [facility], [address] [place] [address] Dr [address] [address]Jermaine [place], [id number], [place] tel:[phone] CVR - [facility] Venous insufficienc y (chronic) (peripheral) 4 Deandre HARDY RVT, ANCELMO West. [address] [place] [address], [address] [facility], [place], [place], [id number], [place]. tel:[phone] Referring Provider: Bertha Zepeda MD, [address] [facility] , [address] [place] D/B/A: nora [place], [address]. tel:[phone] [place] [facility], [address] [place] [address] [address]Jermaine [place], [id number], [place] tel:[phone] CVR - [facility] Chronic venous hypertension (idiopathic) with other complication s of bilateral lower extremity 4 Deandre HARDY RVT, ANCELMO West. [address] [facility], [address], [place], [place], [id number], [place]. tel:[phone] Referring Provider: Bertha Zepeda MD, [address] [facility] , [address] [place] D/B/A: [place], [address]. tel:[phone] Jenn Chavez [facility], [address] [place] [address] [address]Jermaine [place], [id number], [place] tel:[phone] CV[place] Encounter for follow-up examination after completed treatment for conditions other than malignant neChronic venous hypertension (idiopathic) with other complication s of right lower extremity Jan-02 23- 3 [facility] Bravo. [address] [facility], Suite [facility], [place], [address], [place]. tel:[phone] Referring Provider: Bertha Zepeda MD, [address], [address] [place] D/B/A: [place], [address]. tel:[phone] Jenn [facility], [address] [place] [address] Dr [address] 1000Jermaine [place], [id number], [place] tel:[phone] CV[place] Varicose veins of right lower extremity with other complication s 3 [facility] Bravo. [address] [place] [address], Suite [facility], [place], [address], [place]. tel:[phone] Referring Provider: Bertha Zepeda MD, [address] [facility] [address], [address] [place] D/B/A: [place], [address]. tel:[phone] Jenn [facility], [address] [place] [address] Dr [address]Suite Jermaine Godoy [place], [id number], [place] tel:[phone] CVR [place] Varicose veins of right lower extremity with other complication s 3 [facility]ir [facility] Bravo. [facility], Suite [facility], [place], [address], [place]. tel:[phone] Referring Provider: Bertha Zepeda MD, [address] [facility] [address], [address] [place] D/B/A: [place], [address]. tel:[phone] Jenn [facility], [address] [place] [address] Dr [address] 1000Jermaine [place], [id number], [place] tel:[phone] CV[place] Varicose veins of left lower extremity with other complication s 3 Roxann Jaramillo. [address] [facility], [address], [place], [place], [id number], [place]. tel:[phone] Referring Provider: Bertha Zepeda MD, [address] [facility] [address], [address] [place] D/B/A: [place], [address]. tel:[phone] Jenn Chavez [facility], [address] [place] [address] Dr [address] 1000Jermaine [place], [id number], [place] tel:[phone] CVR [place] Encounter for follow-up examination after completed treatment for conditions other than malignant neVaricose veins of left lower extremity with pain 3 Shamir HARDY FACS Cherise Bravo. [address] [facility], Suite [facility], [place], [address], [place]. tel:[phone] Referring Provider: Bertha Zepeda MD, [address] [facility] [address], [address] [place] [address] D/B/A: [place], [address]. tel:[phone] [place] Kathy [facility]in [facility], [address] [place] [address] Dr [address] 1000Jermaine [place], [id number], [place] tel:[phone] CV[place] Varicose veins of left lower extremity with other complication s 3 Shamir Bravo. [address] [facility], Suite [facility], [place], [address], [place]. tel:[phone] Referring Provider: Bertha Zepeda MD, [address] [facility] [address], [address] [place] D/B/A: [place], [address]. tel:[phone] Jenn Chavez [facility], [address] [place] [address] Dr [address] 1000Jermaine [place], [id number], [place] tel:[phone] CV[place] Varicose veins of left lower extremity with other complication s 3 Shamir Bravo. [address] [facility] [address] [facility], [place], [address], [place]. tel:[phone] Referring Provider: Bertha Zepeda MD, [address] [facility] [address], [address] [place] [address] D/B/A: carlosyomiller [place], [address]. tel:[phone] Offic/outpt E&m Estab 5 Min Trial - Telemedicine [facility], [address] [place] [address] [facility] 1000[address] 1000Jermaine [place], [id number], [place] tel:[phone] CV[place] Varicose veins of left lower extremities with pain 3 Roxann Jaramillo. [facility] [place] [address], [place], [id number], [place]. tel:[phone] Referring Provider: Bertha Zepeda MD, [address] [facility] [address]Jacques, [address] D/B/A: carlosyomiller [place], [address]. tel:[phone] Office/Outpt E&M Established 15 Mins [facility], [address] [place] [address] [address] 1000Jermaine [place], [id number], [place] tel:[phone] [facility] Varicose veins of left lower extremities with painPain in right leg 3 Shamir HARDY FACS T ANCELMO Bravo. [facility] [place] [address], [place], [address], [place]. tel:[phone] Referring Provider: Bertha Zepeda MD, [address] [facility] , [address] [place] [address] D/B/A: nora [place], [address]. tel:[phone] [facility], [address] [place] [address] [address] 1000Jermaine [place], [id number], [place] tel:[phone] [facility] Venous insufficienc y (chronic) (peripheral) Pain in right legPain in left leg 3 Shamir HARDY FACS BEN Bravo. [address] [place] [address], [place], [address], [place]. tel:[phone] Referring Provider: Bertha Zepeda MD, 2 [facility] , [address] [place] D/B/A: [place], [address]. tel:[phone] Office/Outpt E&M Established 15 Mins [facility], [address] [facility] [address] [facility] [address] [facility] [address], [place], [id number], tel:[phone] CVR - [facility] Body mass index (BMI) 37.0-37.9, adultVenous insufficienc y (chronic) (peripheral) Shamir HARDY FACS RVT [facility] Arturo Bravo. [facility], [address], [place], [address], [place]. tel:[phone] Referring Provider: Bertha Zepeda MD, 2 [facility] , [address] [place] [address] D/B/A: [place], [address]. tel:[phone] Family History Family Member Type Diagnosis Age At Onset No Information Payers Payer name Insurance type Covered green party ID [facility] [employer] [facility] [id number] Social History Type Description Quantity Date Captured Comments Alcohol Use Details Unknown Caffeine Use Details Unknown Tobacco Use Status No Information Smoking Status Former Smoker Non-Smoking Tobacco Use Details : No Details Available : No Details Available Sex Female Vital Signs Date / Time: Height Weight BMI Pulse Rate Blood Pressure Temperature Respiratory Rate Body Surface Area Head Circumference Head Circ. Percentile Wt./Venu. Percentile BMI percentile Pulse Ox Inhaled Ox 87.540 kg (193.00 lbs) 126/84 mm[Hg] Chief Complaint And Reason For Visit No Information Reason For Referral Reason For Referral No Information Plan Of Treatment Date Type Action Status Goal Tobacco cessation counseling completed Goal Tobacco cessation counseling completed Goal Tobacco cessation counseling completed Goal Tobacco cessation counseling completed Goal Tobacco cessation counseling completed Goal Dietary management education , guidance, and counseling completed History Of Present Illness Encounter Date Complaint History Of Prese nt Illness No Information Functional Status Date Functional Assessmen t No Information Instructions Date Instruction Additional Infor federica Patient education booklet given Related to Venous insufficiency (chronic) (peripheral) Patient education booklet given Related to Chronic venous hypertension (idiopathic) with other complications of bilateral lower extremity Patient education booklet given Related to Venous insufficiency (chronic) (peripheral) Dietary management e ducation, guidance, and counseling Related to Body mass index [BMI] 37.0-37.9, adult Assessments Type Assessment Date No Information Patient Care Teams Name Effective Dates (start - stop) Status Members No Information
== END 2024-02-02 14:35 | disposition home or self-care (01) ==
PROVIDERS: PCP Internal Medicine; Visit Provider Registered Nurse
DX: J45.21 Mild intermittent asthma with (acute) exacerbation (principal)

== ENCOUNTER 2024-02-04 10:30 | Outpatient (AMB) | payer BC, SELFPAY ==
--- NOTE | 2024-02-04 10:31 | MHC.OFFVIS ---
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 She is doing well with concerns. Has some vaginal dryness uses Replens once a week and occasionally applies Vaseline externally which is helpful. Attempting to eat a healthy diet with calcium and stays active with exercise. Last pap smear; 2021. Last mammogram; 2023. Cologard is up to date. Denies any family history of breast, ovarian or colon cancer. [facility] Medical History (Updated 02/04/24 @ 10:39 by Lisette Gonzalez CNM) Osteoarthritis Surgical History Status post ablation of incompetent vein using laser History of appendectomy Family History Mother Cardiac arrest Father Poor circulation of extremity Family/Other Mental health disorder Substance use disorder Brother Prostate cancer Social History Housing: House Alcohol intake: current Alcohol intake frequency: a few times a week Alcohol type: other Patient Tobacco Use Status: Former Tobacco user Tobacco use type: Cigarette e-Cigarette/Vaping Use: Never Used Second Hand Smoke Exposure: No service: No Current occupational status: retired Sexual orientation: Lesbian/Edouard/Homosexual Gender identity: Female Cognitive needs: No Hearing needs: No Vision needs: Yes Female Reproductive History Menstrual Total pregnancies: 0 Date of last pap smear: 11/25/21 (negative pap smear, negative hpv ) Date of Mammogram: 03/17/23 (bi rad 2) Date of last Bone Density Screenin09/18/22 Review of Systems Const All systems reviewed & are unremarkable except as noted in HPI and below Reports as per HPI Eyes Reports no additional complaints ENT Reports no additional complaints Card Reports no additional complaints Resp Reports no additional complaints GI Reports as per HPI and Reports no additional complaints Reports as per HPI Musc Reports no additional complaints Skin/Breast Reports as per HPI Neuro Reports no additional complaints Psych Reports no additional complaints Endo Reports no additional complaints Wing/Lymph Reports no additional complaints Aller/Immun Reports no additional complaints Physical Exam Const General: cooperative, healthy appearing, no acute distress, well developed and alert Orientation/consciousness: patient oriented x3 HEENT Head: Yes normal to inspection Eyes General: appearance normal, both eyes and all related structures Neck Neck: Yes normal visual inspection Thyroid: Thyroid normal Chest Chest palpation & inspection: normal inspection of the chest and other (no puckering, dimpling, peau de orange, retraction, discharge, masses) Breast/axilla inspection: normal inspection of the breasts Breast/axilla palpation: normal palpation of the breasts Resp Effort & Inspection: normal respiratory effort GI Inspection: Yes normal to inspection Palpation (GI): Soft to palpation Rectal Exam - Female: deferred General: Yes bladder normal to palpation External Female Exam: normal external appearance and normal appearance of the urethra Speculum Exam - Vagina: normal appearance of the vagina, normal palpation, normal vaginal discharge and vagina atrophic Speculum Exam - Cervix: normal appearance of the cervix and normal palpation Bimanual exam- vagina & uterus: normal bimanual exam, normal palpation, uterine size normal, bladder normal to palpation, normal palpation and non-tender Bimanual Exam- Adnexa, other: no masses Skin General skin exam: no rashes or lesions noted Rashes: no rashes Neuro General: patient oriented x3 Cognition (Neuro): normal cognition Extrem General: Yes normal to inspection Psych Attitude: cooperative Thought process: Normal thought process present Assessment & Plan Assessment & Plan (1) Encounter for annual routine gynecological examination: Code(s): Z01.419 - Encounter for gynecological examination (general) (routine) without abnormal findings Category: Medical Plan Discussed: Current recommendations for pap smears per ASCCP guidelines. Breast awareness, periodic self breast exams and yearly mammogram. Maintain a healthy lifestyle, well balanced diet including Calcium 1,200 mg and Vitamin D 600 IU daily, and routine exercise. Contact the office with any postmenopausal bleeding. Patient verbalizes understanding and agrees to the plan of care. She was given opportunity to ask questions and all questions were answered to the best of my ability. RTO in 1 year for annual resource recovery engineer exam. This note is constructed using voice recognition software. While every effort has been made to ensure accuracy, assistant producer errors may have been included. Coding Level of Care Code Est Pt Prev Care 40-64y(72945) Diagnoses Encounter for annual routine gynecological examination Z01.419
[2024-02-04 10:39] VITALS: BP 110/70
--- OUTSIDE RECORDS SUMMARY | 2024-02-04 10:45 | XMS_ITS | Continuity of Care Document ---
Author Organization [facility] Address [address] [place] [address] Phone Care Team Providers Care Vice President Of Human Resources Name Role Phone Deandre HARDY, RVT, ANCELMO, [...] Mins- [place] & [place] [facility], [address] [place] [address] Dr [address], [id number], [place] tel:[phone] CVR [facility] Venous insufficienc y (chronic) (peripheral) 4 Deandre HARDY RVT, ANCELMO West. [address] [place] [address], [facility] [place], [id number], [place]. tel:[phone] Referring Provider: Bertha Zepeda MD, 2 [facility] , [address] [place] [address] D/B/A: [place], [address]. tel:[phone] [facility], [address] [place] [address] Dr Kline [address]Suite [place]erm[place] Godoy [place], [id number], [place] tel:[phone] CVR - [facility] Encounter for follow-up examination after completed treatment for conditions other than malignant neVaricose veins of bilateral lower extremities with pain 4 Deandre HARDY RVT, ANCELMO West. [address] [place] [address] Suite [facility], [facility] [place], [id number], [place]. tel:[phone] Referring Provider: Bertha Zepeda MD, 2 [facility] , [address] [place] [address] D/B/A: [place], [address]. tel:[phone] Jenn Chavez [facility], [address] [place] [address] Dr Kline [address]Suite [place]ermaine Godoy [place], [id number], [place] tel:[phone] CVR - [facility] Encounter for follow-up examination after completed treatment for conditions other than malignant neVaricose veins of left lower extremity with pain Apr- 4 Deandre HARDY RVT, ANCELMO West. [address] [facility] [address], [address], [facility], [place], [id number], [place]. tel:[phone] Referring Provider: Bertha Zepeda MD, 2 [facility] [address], [address] [place] D/B/A: [place], [address]. tel:[phone] [facility], [address] [place] [address] [address]Suite Jermaine Godoy [place], [id number], [place] tel:[phone] CVR - [facility] Chronic venous hypertension (idiopathic) with inflammation of left lower extremity 4 Deandre HARDY RVT, ANCELMO West. [address] [facility], [address], [facility], [place], [id number], [place]. tel:[phone] Referring Provider: Bertha Zepeda MD, 2 [facility] [address], [address] [place] D/B/A: [place], [address]. tel:[phone] [facility], [address] [place] [address] [address]Suite Jermaine Godoy [place], [id number], [place] tel:[phone] CVR - [facility] Encounter for follow-up examination after completed treatment for conditions other than malignant nePain in right leg 4 Deandre HARDY RVT, ANCELMO West. [address], [address], [facility] [place], [place], [id number], [place]. tel:[phone] Referring Provider: Bertha Zepeda MD, 2 [facility] [address], [address] [place] D/B/A: [place], [address]. tel:[phone] Jenn [facility], [address] [place] [address] [address]Jermaine [place], [id number], [place] tel:[phone] CVR - [facility] Varicose veins of right lower extremity with other complication s 4 Deandre HARDY RVT, ANCELMO West. [address] [facility], [address], [place], [place], [id number], [place]. tel:[phone] Referring Provider: Bertha Zepeda MD, 2 [facility] [address], [address] [place] D/B/A: [place], [address]. tel:[phone] Office/Outpt E&M Established 15 Mins [facility], [address] [place] [address] Dr [address]Jermaine [place], [id number], [place] tel:[phone] CVR - [facility] Venous insufficienc y (chronic) (peripheral) 4 Deandre HARDY RVT, ANCELMO West. [address] [place] [address], Suite [facility], [place], [place], [id number], [place]. tel:[phone] Referring Provider: Bertha Zepeda MD, 2 [facility] , [address] [place] D/B/A: [place], [address]. tel:[phone] [place] [facility], [address] [place] [address] [address] 1000Jermaine [place], [id number], [place] tel:[phone] CVR - [facility] Chronic venous hypertension (idiopathic) with other complication s of bilateral lower extremity 4 Deandre HARDY RVT, ANCELMO West. [address] [facility], [address], [place], [place], [id number], [place]. tel:[phone] Referring Provider: Bertha Zepeda MD, 2 [facility] , [address] [place] D/B/A: [place], [address]. tel:[phone] Jenn Chavez [facility], [address] [place] [address] [address] 1000Jermaine [place], [id number], [place] tel:[phone] [place] Encounter for follow-up examination after completed treatment for conditions other than malignant neChronic venous hypertension (idiopathic) with other complication s of right lower extremity Jan-02 23- 3 [facility]ravo. [address] [facility], Suite [facility], [place], [address], [place]. tel:[phone] Referring Provider: Bertha Zepeda MD, [address], [address] [place] D/B/A: [place], [address]. tel:[phone] Jenn [facility], [address] [place] [address] Dr [address] 1000Jermaine [place], [id number], [place] tel:[phone] CVR [place] Varicose veins of right lower extremity with other complication s 3 Shamir [facility] Bravo. [address] [place] [address], Suite [facility], [place], [address], [place]. tel:[phone] Referring Provider: Bertha Zepeda MD, 2 [facility] [address], [address] [place] D/B/A: [place], [address]. tel:[phone] Jenn [facility], [address] [place] [address] Dr [address]Suite [place] Godoy [place], [id number], [place] tel:[phone] CVR [place] Varicose veins of right lower extremity with other complication s 3 Shamir [facility]. [facility] [facility], Suite [facility], [place], [address], [place]. tel:[phone] Referring Provider: Bertha Zepeda MD, 2 [facility] [address], [address] [place] D/B/A: [place], [address]. tel:[phone] Jenn [facility], [address] [place] [address] Dr [address] 1000Jermaine [place], [id number], [place] tel:[phone] CVR [place] Varicose veins of left lower extremity with other complication s 3 Roxann Jaramillo. [address] [facility], [address], [place], [place], [id number], [place]. tel:[phone] Referring Provider: Bertha Zepeda MD, 2 [facility] [address], [address] [place] D/B/A: [place], [address]. tel:[phone] Jenn Chavez [facility], [address] [place] [address] Dr [address] 1000Jermaine [place], [id number], [place] tel:[phone] CVR [place] Encounter for follow-up examination after completed treatment for conditions other than malignant neVaricose veins of left lower extremity with pain 3 Shamir HARDY FACS Cherise Bravo. [address] [facility], Suite [facility], [place], [address], [place]. tel:[phone] Referring Provider: Bertha Zepeda MD, 2 [facility] [address], [address] [place] [address] D/B/A: [place], [address]. tel:[phone] [place] Kathy [facility], [address] [place] [address] Dr [address] 1000Jermaine [place], [id number], [place] tel:[phone] CVR [place] Varicose veins of left lower extremity with other complication s 3 Shamir Bravo. [address] [facility], Suite [facility], [place], [address], [place]. tel:[phone] Referring Provider: Bertha Zepeda MD, 2 [facility] [address], [address] [place] D/B/A: [place], [address]. tel:[phone] Jenn Chavez [facility], [address] [place] [address] Dr [address] 1000Jermaine [place], [id number], [place] tel:[phone] CVR [place] Varicose veins of left lower extremity with other complication s 3 Shamir Bravo. [address] [facility], [place], [address], [place]. tel:[phone] Referring Provider: Bertha Zepeda MD, 2 [facility] [address], [address] [place] [address] D/B/A: [place], [address]. tel:[phone] Offic/outpt E&m Estab 5 Min Trial - Telemedicine [facility], [address] [place] [address] [facility] 1000[address] 1000Jerm[place], [id number], [place] tel:[phone] CV[place] Varicose veins of left lower extremities with pain 3 Roxann Jaramillo. [facility] [place] [address], [place], [id number], [place]. tel:[phone] Referring Provider: Bertha Zepeda MD, 2 [facility] [address], [address] D/B/A: [place], [address]. tel:[phone] Office/Outpt E&M Established 15 Mins [facility], [address] [place] [address] [address] 1000Jermaine [place], [id number], [place] tel:[phone] CVR [place] Varicose veins of left lower extremities with painPain in right leg 3 Shamir HARDY FACS T ANCELMO Bravo. [facility]0 [place] [address], [place], [address], [place]. tel:[phone] Referring Provider: Bertha Zepeda MD, 2 [facility] , [address] [place] [address] D/B/A: [place], [address]. tel:[phone] [facility], [address] [place] [address] [address] 1000Jermaine [place], [id number], [place] tel:[phone] CVR [place] Venous insufficienc y (chronic) (peripheral) Pain in right legPain in left leg 3 Shamir HARDY FACS BEN Bravo. [address] [place] [address], [place], [address], [place]. tel:[phone] Referring Provider: Bertha Zepeda MD, 2 [facility] , [address] [place] D/B/A: [place], [address]. tel:[phone] Office/Outpt E&M Established 15 Mins [facility], [address] [facility] [facility] [address], [place], [id number], tel:[phone] CVR - [facility] Body mass index (BMI) 37.0-37.9, adultVenous insufficienc y (chronic) (peripheral) Shamir HARDY FACS RVT [facility] Arturo Bravo. [facility] [facility], [address], [place], [address], [place]. tel:[phone] Referring Provider: Bertha Zepeda MD, 2 [facility] , [address] [place] [address] D/B/A: nora [facility] [place], [address]. tel:[phone] Family History Family Member Type Diagnosis Age At Onset No Information Payers Payer name Insurance type Covered libertarian ID [facility] [employer] [facility] [id number] Social History Type Description Quantity Date Captured [...] management education , guidance, and counseling completed Goal Tobacco cessation counseling completed History Of Present Illness Encounter Date Complaint History Of Prese nt Illness No Information Functional Status Date Functional Assessmen t No Information Instructions Date Instruction Additional Infor federica Patient education booklet given Related to Venous insufficiency (chronic) (peripheral) Patient education booklet given Related to Venous insufficiency (chronic) (peripheral) Patient education booklet given Related to Chronic venous hypertension (idiopathic) with other complications of bilateral lower extremity Dietary management e ducation, guidance, and counseling Related to Body mass index [BMI] 37.0-37.9, adult Assessments Type Assessment Date No Information Patient Care Teams Name Effective Dates (start - stop) Status Members No Information
== END 2024-02-04 10:58 | disposition home or self-care (01) ==
LOC: HO.HWS 10:30
PROVIDERS: PCP Internal Medicine; Visit Provider Advanced Practice Midwife
DX: Z01.419 Encounter for gynecological examination (general) (routine) without abnormal findings (principal)
CPT/HCPCS: 99396

== ENCOUNTER → 2024-02-04 10:30 | Outpatient (BNVA) | payer BC, SELFPAY | PROVIDERS: PCP Internal Medicine; Visit Provider Advanced Practice Midwife ==

== ENCOUNTER 2024-02-22 12:04 | Outpatient (REF) | payer BC, SELFPAY ==
--- NOTE | ~2024-02-22 | XR_ITS ---
CLINICAL HISTORY: R05.9 - Cough, unspecified Two views of the chest. COMPARISON: None FINDINGS: Normal heart size. Atherosclerotic thoracic aorta. Retrocardiac consolidation, seen best on lateral imaging may represent developing pneumonia. No pleural effusion or pneumothorax. No fracture identified. IMPRESSION: 1. Question developing left lower lobe pneumonia. This document has been electronically signed by: Donavan De Luna MD on 02/24/2024 14:58:57
--- OUTSIDE RECORDS SUMMARY | 2024-02-22 14:02 | XMS_ITS | Continuity of Care Document ---
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 [address] [place] [address], [facility] [place], [id number], [place]. tel:[phone] Referring Provider: Bertha Zepeda MD, [address] [facility] , [address] [place] [address] D/B/A: [place], [address]. tel:[phone] [facility], [address] [place] [address] Dr Kline [address]Suite Jermaine Godoy [place], [id number], [place] tel:[phone] CVR - [facility] Encounter for follow-up examination after completed treatment for conditions other than malignant neVaricose veins of bilateral lower extremities with pain 4 Deandre HARDY RVT, ANCELMO West. [address] [place] [address] Suite [facility], [facility] [place], [id number], [place]. tel:[phone] Referring Provider: Bertha Zepeda MD, 2 [facility] , [address] [place] [address] D/B/A: [place], [address]. tel:[phone] Jenn [facility], [address] [place] [address] Dr Kline [address]Suite Jermaine Godoy [place], [id number], [place] tel:[phone] CVR - [facility] Encounter for follow-up examination after completed treatment for conditions other than malignant neVaricose veins of left lower extremity with pain Apr- 4 Deandre HARDY RVT, ANCELMO West. [address] [facility] [address], [address], [facility], [place], [id number], [place]. tel:[phone] Referring Provider: Bertha Zepeda MD, [address] [facility] [address], [address] West D/B/A: car[place], [address]. tel:[phone] [facility], [address] [place] [address] [address]Suite Jermaine Godoy [place], [id number], [place] tel:[phone] CVR - [facility] Chronic venous hypertension (idiopathic) with inflammation of left lower extremity 4 Deandre HARDY RVT, ANCELMO West. [address] [facility], [address], [facility], [place], [id number], [place]. tel:[phone] Referring Provider: Bertha Zepeda MD, [address] [facility] [address], [address] [place] D/B/A: [place], [address]. tel:[phone] [facility], [address] [place] [address] [address]Suite Jermaine Godoy [place], [id number], [place] tel:[phone] CVR - [facility] Encounter for follow-up examination after completed treatment for conditions other than malignant nePain in right leg 4 Deandre HARDY RVT, ANCELMO West. [address] [facility], [address], [facility] [place], [place], [id number], [place]. tel:[phone] Referring Provider: Bertha Zepeda MD, [address] [facility] [address], [address] [place] D/B/A: [place], [address]. tel:[phone] Jenn [facility], [address] [place] [address] [address]Jermaine [place], [id number], [place] tel:[phone] CVR - [facility] Varicose veins of right lower extremity with other complication s 4 Deandre HARDY RVT, ANCELMO West. [address] [facility], [address], [place], [place], [id number], [place]. tel:[phone] Referring Provider: Bertha Zeepda MD, [address] [facility] [address], [address] [place] D/B/A: [place], [address]. tel:[phone] Office/Outpt E&M Established 15 Mins [facility], [address] [place] [address] Dr [address] 1000Jermaine [place], [id number], [place] tel:[phone] CVR - [facility] Venous insufficienc y (chronic) (peripheral) 4 Deandre HARDY RVT, ANCELMO Wets. [address] [place] [address], Suite [facility], [place], [place], [id number], [place]. tel:[phone] Referring Provider: Bertha Zeepda MD, [address] [facility] , [address] [place] D/B/A: [place], [address]. tel:[phone] [place] [facility], [address] [place] [address] [address] 1000Jermaine [place], [id number], [place] tel:[phone] CVR - [facility] Chronic venous hypertension (idiopathic) with other complication s of bilateral lower extremity 4 Deandre HARDY RVT, ANCELMO West. [address] [facility], [address], [place], [place], [id number], [place]. tel:[phone] Referring Provider: Bertha Zepeda MD, [address] [facility] , [address] [place] D/B/A: [place], [address]. tel:[phone] Jenn [facility], [address] [place] [address] [address] 1000Jermaine [place], [id number], [place] tel:[phone] CVR - [place] [facility] [place] Encounter for follow-up examination after completed treatment for conditions other than malignant neChronic venous hypertension (idiopathic) with other complication s of right lower extremity Jan-02 23- 3 [facility] Bravo. [address] [facility], Suite [facility], [place], [address], [place]. tel:[phone] Referring Provider: Bertha Zepeda MD, [address], [address] [place] D/B/A: [place], [address]. tel:[phone] Jenn [facility], [address] [place] [address] Dr [address] 1000Jermaine [place], [id number], [place] tel:[phone] CVR - [place] [facility] [place] Varicose veins of right lower extremity with other complication s 3 Shamir [facility] Bravo. [address] [place] [address], Suite [facility], [place], [address], [place]. tel:[phone] Referring Provider: Bertha Zepeda MD, [address] [facility] [address], [address] [place] D/B/A: [place], [address]. tel:[phone] [facility], [address] [place] [address] Dr [address]Suite Jermaine Godoy [place], [id number], [place] tel:[phone] CVR - [place] Varicose veins of right lower extremity with other complication s 3 Shamir [facility] Bravo. [facility] [facility], Suite [facility], [place], [address], [place]. tel:[phone] Referring Provider: Bertha Zepeda MD, [address] [facility] [address], [address] [place] D/B/A: [place], [address]. tel:[phone] Jenn [facility], [address] [place] [address] Dr [address] 1000Jermaine [place], [id number], [place] tel:[phone] CVR - [place] Varicose veins of left lower extremity with other complication s 3 Roxann Jaramillo. [address] [facility], [address], [place], [place], [id number], [place]. tel:[phone] Referring Provider: Bertha Zepeda MD, [address] [facility] [address], [address] [place] D/B/A: [place], [address]. tel:[phone] Jenn [facility], [address] [place] [address] Dr [address] 1000Jermaine [place], [id number], [place] tel:[phone] CVR - [place] Encounter for follow-up examination after completed treatment for conditions other than malignant neVaricose veins of left lower extremity with pain 3 Shamir HARDY FACS Cherise Bravo. [address] [facility], Suite [facility], [place], [address], [place]. tel:[phone] Referring Provider: Bertha Zepeda MD, [address] [facility] [address], [address] [place] [address] D/B/A: [place], [address]. tel:[phone] [place] [facility], [address] [place] [address] Dr [address] 1000Jermaine [place], [id number], [place] tel:[phone] CVR - [place] Varicose veins of left lower extremity with other complication s 3 Shamir Bravo. [address] [facility], Suite [facility], [place], [address], [place]. tel:[phone] Referring Provider: Bertha Zepeda MD, [address] [facility] [address], [address] [place] D/B/A: [place], [address]. tel:[phone] Jenn [facility], [address] [place] [address] Dr [address] 1000Jermaine [place], [id number], [place] tel:[phone] CVR - [place] Varicose veins of left lower extremity with other complication s 3 Shamir Bravo. [address] [facility] Suite [facility], [place], [address], [place]. tel:[phone] Referring Provider: Bertha Zepeda MD, [address] [facility] [address], [address] [place] [address] D/B/A: [place], [address]. tel:[phone] Offic/outpt E&m Estab 5 Min Trial - Telemedicine [facility], [address] [place] [address] [facility] 1000[address] 1000Jermaine [place], [id number], [place] tel:[phone] CVR - [place] Varicose veins of left lower extremities with pain 3 Roxann Jaramillo. [facility]0 [place] [address], [place], [id number], [place]. tel:[phone] Referring Provider: Bertha Zepeda MD, [address] [facility] [address], [address] D/B/A: carlosy[place], [address]. tel:[phone] Office/Outpt E&M Established 15 Mins [facility], [address] [place] [address] [address] 1000Jermaine [place], [id number], [place] tel:[phone] CVR - [place] Varicose veins of left lower extremities with painPain in right leg 3 Shamir HARDY FACS T ANCELMO Bravo. [facility] [place] [address], [place], [address], [place]. tel:[phone] Referring Provider: Bertha Zepeda MD, [address] [facility] , [address] [place] [address] D/B/A: [place], [address]. tel:[phone] [facility], [address] [place] [address] [address] 1000Jermaine [place], [id number], [place] tel:[phone] CVR - [place] Venous insufficienc y (chronic) (peripheral) Pain in right legPain in left leg 3 Shamir HARDY FACS BEN Bravo. [address] [place] [address], [place], [address], [place]. tel:[phone] Referring Provider: Bertha Zepeda MD, [address] [facility] , [address] [place] D/B/A: [place], [address]. tel:[phone] Office/Outpt E&M Established 15 Mins [facility], [address] [facility] [address], [place], [id number], tel:[phone] CVR - [facility] Body mass index (BMI) 37.0-37.9, adultVenous insufficienc y (chronic) (peripheral) Shamir HARDY FACS RVT [facility] Arturo Bravo. [facility]0 [facility], [address], [place], [address], [place]. tel:[phone] Referring Provider: Bertha Zepeda MD, 2 [facility] , [address] [place] [address] D/B/A: [place], [address]. tel:[phone] Family History Family Member Type Diagnosis Age At Onset No Information Payers Payer name Insurance type Covered democrat ID [facility] [employer] [facility] [id number] Social History Type Description Quantity Date Captured [...]
== END 2024-02-22 12:05 | disposition home or self-care (01) ==
LOC: HO.HMGCX 12:04
PROVIDERS: PCP Internal Medicine; Visit Provider Physician Assistant
DX: R05.9 Cough, unspecified (principal)
CPT/HCPCS: 71046

== ENCOUNTER 2024-02-22 12:04 | Outpatient (AMB) | payer BC, SELFPAY ==
--- NOTE | 2024-02-22 13:22 | MHC.OFFWIV ---
Intake Vital Signs 02/22/24 13:23 Weight 189 lb BP 120/82 Blood Pressure Location Rt brachial Position Sitting Pulse 82 Pulse Source Pulse Oximeter Temp 97.8 F Temp Source Oral Pulse Oximetry (%) 98 Oxygen Delivery Method Room Air Intake Visit Reasons: EP-cough Intake Note: Patient here for cough that has been present for a couple of weeks. Patient Tobacco Use Status: Former Tobacco user Allergies cat dander [CAT] Allergy (Unknown, Verified 02/22/24 13:23) DIFFICULTY BREATHING Do you need a note to return to daycare/school/sports/work: No HPI HPI Comments History of Present Illness Details This is a 63-year-old female with a past medical history of asthma and arthritis presenting for evaluation of a cough that she has had for the past 3 weeks. Patient states that she was treated for asthma earlier in her life however symptoms recurred after she traveled to [place] in early January. Patient was seen here in the clinic on February 01 and prescribed prednisone 40 mg which she took for 3 days and an albuterol inhaler that she has been using infrequently. Patient states that her symptoms improved with the prednisone however her cough recurred after she discontinued her prednisone. Patient denies having any fevers, chills, fatigue, ear pain, pharyngitis, chest pain or overt shortness of breath. [facility] Medical History (Updated 02/22/24 @ 14:38 by Thea Ruelas PA-C) Osteoarthritis Surgical History Status post ablation of incompetent vein using laser History of appendectomy Family History Mother Cardiac arrest Father Poor circulation of extremity Family/Other Mental health disorder Substance use disorder Brother Prostate cancer Social History Housing: House Alcohol intake: current Alcohol intake frequency: a few times a week Alcohol type: other Patient Tobacco Use Status: Former Tobacco user Tobacco use type: Cigarette e-Cigarette/Vaping Use: Never Used Second Hand Smoke Exposure: No service: No Current occupational status: retired Sexual orientation: Lesbian/Edouard/Homosexual Gender identity: Female Cognitive needs: No Hearing needs: No Vision needs: Yes Review of Systems Const All systems reviewed & are unremarkable except as noted in HPI and below Eyes Reports no additional complaints ENT Reports no additional complaints, Denies otalgia and Denies sore throat Card Reports no additional complaints and Denies chest pain Resp Reports as per HPI, Reports no additional complaints, Reports chest congestion, Reports cough, Denies hemoptysis, Denies stridor and Reports wheezing GI Reports no additional complaints Reports no additional complaints Musc Reports no additional complaints Skin/Breast Reports system reviewed and no additional complaints, except as documented Neuro Reports no additional complaints Psych Reports no additional complaints and Reports as per HPI Endo Reports no additional complaints Wing/Lymph Reports no additional complaints Aller/Immun Reports no additional complaints and Reports wheezing Physical Exam Vital Signs: Last Vital Signs Temp 97.8 F 02/22/24 13:23 Pulse 82 02/22/24 13:23 BP 120/82 02/22/24 13:23 Pulse Ox 98 02/22/24 13:23 Oxygen Delivery Method Room Air 02/22/24 13:23 Const General: cooperative, healthy appearing, comfortable, no acute distress, well developed, alert, awake and Physically active; No lethargic Nutritional Appearance: average body habitus and overweight Orientation/consciousness: patient oriented x3 and No lethargic Limitations: no limitations HEENT Head: Yes normal to inspection and Yes normocephalic Ears: hearing grossly normal bilaterally, external ears normal, TM's normal bilaterally and EAC's normal General nose exam: Normal external nose present Face and sinus: Yes normal facial exam and Yes sinuses nontender Mouth: Normal oral and palatal mucosa present Throat: Yes posterior oropharynx normal and No postnasal drainage Eyes General: appearance normal, both eyes and all related structures Neck Lymphatic: no lymphadenopathy noted Resp Effort & Inspection: normal respiratory effort, able to speak in complete sentences, no audible wheezes and no respiratory distress Auscultation: wheezes (right upper lobe) expiratory wheezes Cardio Rate: regular rate Rhythm: regular rhythm Skin General skin exam: no rashes or lesions noted Neuro General: patient oriented x3 Psych Appearance: grossly normal Mental Status: mental status grossly normal Insight: Good insight present (Psych) Judgement: Good judgement present (Psych) Results Reviewed Results Reviewed: chest x.ray reviewed; no acute findings identified Assessment & Plan Assessment & Plan (1) Reactive airway disease: Comment: Patient is not hypoxic however cough persists. There are no acute findings noted on chest x-ray patient discharge home with a 5 day course of prednisone. Code(s): J45.909 - Unspecified asthma, uncomplicated Qualifiers: Asthma severity: mild Asthma persistence: intermittent Asthma complication type: uncomplicated Qualified Code(s): J45.20 - Mild intermittent asthma, uncomplicated Plan: Prednisone 40mg x 5 days Orders: Orders XR chest 2V Today R05.9 - Cough, unspecified Medications: New prednisone 40 mg (2 x 20 mg) PO DAILY 10 tabs 0RF Coding Level of Care Code Est Pt Level 3 (13100) Diagnoses Mild intermittent reactive airway disease without complication J45.20 Asthma severity: mild Asthma persistence: intermittent Asthma complication type: uncomplicated Time Spent (min) 25
[2024-02-22 13:23] VITALS: BP 120/82; PULSE 82; TEMP 36.6; O2SAT 98
== END 2024-02-22 14:47 | disposition home or self-care (01) ==
PROVIDERS: PCP Internal Medicine; Visit Provider Physician Assistant
DX: J45.20 Mild intermittent asthma, uncomplicated (principal)

== ENCOUNTER → 2024-02-22 14:03 | Outpatient (BNV) | payer BC, SELFPAY | PROVIDERS: PCP Internal Medicine; Visit Provider Radiology Diagnostic Radiology | DX: R05.9 Cough, unspecified (principal) | CPT/HCPCS: 71046 ==

== ENCOUNTER 2024-03-21 09:15 | Outpatient (REF) | payer BC, SELFPAY ==
--- OUTSIDE RECORDS SUMMARY | 2024-03-21 09:43 | XMS_ITS | Continuity of Care Document ---
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 Venous insufficienc y (chronic) (peripheral) 4 Deandre HARDY RVT, ANCELMO West. [address] [place] [address], [facility] [place], [place], [id number], [place]. tel:[phone] Referring Provider: Bertha Zepeda MD, 2 [facility] , [address] [place] [address] D/B/A: [place], [address]. tel:[phone] [facility], [address] [place] [address] Dr Kline 1000Suite Jermaine Godoy [place], [id number], [place] tel:[phone] CVR - [facility] Encounter for follow-up examination after completed treatment for conditions other than malignant neVaricose veins of bilateral lower extremities with pain 4 Deandre HARDY RVT, ANCELMO West. [address] [place] [address] Suite [facility], [facility] [place], [id number], [place]. tel:[phone] Referring Provider: Bertha Zepeda MD, 2 [facility] , [address] [place] [address] D/B/A: [place], [address]. tel:[phone] Jenn Chavez [facility], [address] [place] [address] Dr Kline [address]Suite Jermaine Godoy [place], [id number], [place] tel:[phone] CVR - [facility] Encounter for follow-up examination after completed treatment for conditions other than malignant neVaricose veins of left lower extremity with pain Apr- 4 Deandre HARDY RVT, ANCELMO West. [address] [facility], [address], [facility], [place], [id number], [place]. tel:[phone] Referring Provider: Bertha Zepeda MD, 2 [facility] [address], [address] West D/B/A: carlosyom[place], [address]. tel:[phone] [facility], [address] [place] [address] [address]Suite Jermaine Godoy [place], [id number], [place] tel:[phone] CVR - [facility] Chronic venous hypertension (idiopathic) with inflammation of left lower extremity 4 Deandre HARDY RVT, ANCELMO West. [address] [facility], [address], [facility], [place], [id number], [place]. tel:[phone] Referring Provider: Bertha Zepeda MD, 2 [facility] [address], [address] [place] D/B/A: carlosy[place], [address]. tel:[phone] [facility], [address] [place] [address] [address]Suite Jermaine Godoy [place], [id number], [place] tel:[phone] CVR - [facility] Encounter for follow-up examination after completed treatment for conditions other than malignant nePain in right leg 4 Deandre HARDY RVT, ANCELMO West. [address] [facility], [address], [facility] [place], [place], [id number], [place]. tel:[phone] Referring Provider: Bertha Zepeda MD, [address] [facility] [address], [address] West D/B/A: [place], [address]. tel:[phone] [facility], [address] [place] [address] [address] 1000Jermaine [place], [id number], [place] tel:[phone] CVR - [facility] Varicose veins of right lower extremity with other complication s 4 Deandre HARDY RVT, ANCELMO West. [address] [facility], [address], [place], [place], [id number], [place]. tel:[phone] Referring Provider: Bertha Zepeda MD, 2 [facility] [address], [address] [place] D/B/A: [place], [address]. tel:[phone] Office/Outpt E&M Established 15 Mins [facility], [address] [place] [address] Dr [address] 1000Jermaine [place], [id number], [place] tel:[phone] CVR - [facility] Venous insufficienc y (chronic) (peripheral) 4 Deandre HARDY RVT, ANCELMO West. [address] [place] [address], Suite [facility], [place], [place], [id number], [place]. tel:[phone] Referring Provider: Bertha Zepeda MD, 2 [facility] , [address] [place] D/B/A: [place], [address]. tel:[phone] [facility], [address] [place] [address] [address] 1000Jermaine [place], [id number], [place] tel:[phone] CVR - [facility] Chronic venous hypertension (idiopathic) with other complication s of bilateral lower extremity 4 Deandre HARDY RVT, ANCELMO West. [address] [facility], [address], [place], [place], [id number], [place]. tel:[phone] Referring Provider: Bertha Zepeda MD, 2 [facility] , [address] [place] D/B/A: [place], [address]. tel:[phone] Jenn Chavez [facility], [address] [place] [address] [address] 1000Jermaine [place], [id number], [place] tel:[phone] CVR [place] Encounter for follow-up examination after completed treatment for conditions other than malignant neChronic venous hypertension (idiopathic) with other complication s of right lower extremity Jan-02 23- 3 [facility] Bravo. [address] [facility], Suite [facility], [place], [address], [place]. tel:[phone] Referring Provider: Bertha Zepeda MD, [address], [address] [place] D/B/A: [place], [address]. tel:[phone] Jenn [facility], [address] [place] [address] Dr [address] 1000Jermaine [place], [id number], [place] tel:[phone] CVR [place] Varicose veins of right lower extremity with other complication s 3 Shamir [facility] Bravo. [address] [place] [address], Suite [facility], [place], [address], [place]. tel:[phone] Referring Provider: Bertha Zepeda MD, 2 [facility] [address], [address] [place] D/B/A: [place], [address]. tel:[phone] Jenn [facility], [address] [place] [address] Dr [address]Suite Jermaine Godoy [place], [id number], [place] tel:[phone] CVR [place] Varicose veins of right lower extremity with other complication s 3 Shamir [facility] Bravo. [facility] [facility], Suite [facility], [place], [address], [place]. tel:[phone] Referring Provider: Bertha Zepeda MD, 2 [facility] [address], [address] [place] D/B/A: [place], [address]. tel:[phone] Jenn [facility], [address] [place] [address] Dr [address] 1000Jermaine [place], [id number], [place] tel:[phone] CVR [place] Varicose veins of left lower extremity with other complication s 3 Roxann Jaramillo. [address] [facility], [address], [place], [place], [id number], [place]. tel:[phone] Referring Provider: Bertha Zepeda MD, 2 [facility] [address], [address] [place] D/B/A: [place], [address]. tel:[phone] Jenn Chavez [facility], [address] [place] [address] Dr [address] 1000Jermaine [place], [id number], [place] tel:[phone] CVR [place] Encounter for follow-up examination after completed treatment for conditions other than malignant neVaricose veins of left lower extremity with pain 3 Shamir HARDY FACS Cherise Bravo. [address] [facility], Suite [facility], [place], [address], [place]. tel:[phone] Referring Provider: Bertha Zepeda MD, 2 [facility] [address], [address] [place] [address] D/B/A: [place], [address]. tel:[phone] Tryon Kathy [facility], [address] [place] [address] Dr [address] 1000Jermaine [place], [id number], [place] tel:[phone] CVR [place] Varicose veins of left lower extremity with other complication s 3 Shamir Bravo. [address] [facility], Suite [facility], [place], [address], [place]. tel:[phone] Referring Provider: Bertha Zepeda MD, 2 [facility] [address], [address] [place] D/B/A: [place], [address]. tel:[phone] Jenn Chavez [facility], [address] [place] [address] Dr [address]Suite 1000Jermaine [place], [id number], [place] tel:[phone] CVR [place] Varicose veins of left lower extremity with other complication s 3 Shamir Bravo. [address] [facility] Suite [facility], [place], [address], [place]. tel:[phone] Referring Provider: Bertha Zepeda MD, 2 [facility] [address], [address] [place] [address] D/B/A: [place], [address]. tel:[phone] Offic/outpt E&m Estab 5 Min Trial - Telemedicine [facility], [address] [place] [address] [facility] 1000[address] 1000Jermaine [place], [id number], [place] tel:[phone] CVR [place] Varicose veins of left lower extremities with pain 3 Roxann Jaramillo. [facility] [place] [address], [place], [id number], [place]. tel:[phone] Referring Provider: Bertha Zepeda MD, 2 [facility] [address], [address] D/B/A: carlosyom[place], [address]. tel:[phone] Office/Outpt E&M Established 15 Mins [facility], [address] [place] [address] [address] 1000Jermaine [place], [id number], [place] tel:[phone] CVR - [place] Varicose veins of left lower extremities with painPain in right leg 3 Shamir HARDY FACS T ANCELMO Bravo. [facility] [place] [address], [place], [address], [place]. tel:[phone] Referring Provider: Bertha Zepeda MD, 2 [facility] , [address] [place] [address] D/B/A: [place], [address]. tel:[phone] [facility], [address] [place] [address] [address] 1000Jermaine [place], [id number], [place] tel:[phone] CVR [place] Venous insufficienc y (chronic) (peripheral) Pain in right legPain in left leg 3 Shamir HARDY FACS BEN Bravo. [address] [place] [address], [place], [address], [place]. tel:[phone] Referring Provider: Bertha Zepeda MD, 2 [facility] , [address] [place] D/B/A: [place], [address]. tel:[phone] Office/Outpt E&M Established 15 Mins [facility], [address] [facility] [address], [place], [id number], tel:[phone] CVR - [facility] Body mass index (BMI) 37.0-37.9, adultVenous insufficienc y (chronic) (peripheral) Shamir HARDY FACS RVT [facility] Arturo Bravo. [facility]0 [facility], [address], [place], [address], [place]. tel:[phone] Referring Provider: Bertha Zepeda MD, 2 [facility] , [address] [place] [address] D/B/A: [place], [address]. tel:[phone] Family History Family Member Type Diagnosis Age At Onset No Information Payers Payer name Insurance type Covered alliance party ID [facility] [employer] [facility] [id number] Social History Type Description Quantity Date Captured [...]
--- OUTSIDE RECORDS SUMMARY | 2024-03-21 09:43 | XMS_ITS | Data Portability ---
Author Organization [facility] [id number] Address [address] [place] [address] Assessment No assessment recorded. Plan of Treatment Reminders Order Date Submit Date Provider Last Modified By Organization Details Last Modified Time Details Appointments None recorded. Lab None recorded. Referral None recorded. Procedures None recorded. Surgeries None recorded. Imaging None recorded. Medication Orders cephalexin 500 mg capsule 2022 023 [facility][id number], [address], [place], [id number], 3 19:35:09 cephalexin 500 mg capsule 2022 023 [facility][id number], [address], [place], [id number], 3 10:50:32 Patient TargetsNo targets recorded. Patient Instructions Encounter Date Encounter Id Patient Instructions Last Modified By Organization Details Last Modified Time 08/28/2022 [id number] cellulitis: care instructions Not available 08/28/2022 19:34:54 Based on your presentation and exam today, I am diagnosing you with cellulitis. I am going to prescribe you and antibiotic to cover this infection. Please be sure to complete the full course of this antibiotic to prevent antibiotic resistance. I suggest with any antibiotic that you take Florastor or another probiotic. This help re-colonize you body with the good bacteria. It might take 3-4 days for the antibiotic to start working - so don't panic if your infection gradually worsens over the next 48 hours before it gets better. The following are my recommendations to help you feel better and aid in resolving this infection: 1. No creams or lotions on the affected area - so no Antibiotic ointment. 2. Warm Epsen Salt Soaks - 2 or 3 x daily. This will help move the infection to the surface of the skin. 3. Take Ibuprofen or Tylenol if you do not have any allergies to these medications. If you take a blood thinner you should not take NSAIDS like Ibuprofen. These medication will help with the inflammation in your respiratory tract which should help the cough. 4. Do no squeeze or pick at the area. This can worsen the infection. The following are warning signs to look out for that would suggest the infection is worsening. This would mean you should be seen again: 1. Fever > 100.5 2. Redness is spreading to double the size in 24 hours 3. Increased swelling and pain. 4. Inability to move a joint 5. Swollen lymph nodes that are tender Thank you for using [facility] today, please don't hesitate to call or reach out to us if you have any questions or concerns. [email or web address] Not available 08/28/2022 19:34:53 09/11/2022 [id number] cellulitis: care instructions Not available 09/11/2022 10:50:22 skin abscess: ca re instructions Not available 09/11/2022 10:50:22 Cellulitis is a skin infection caused by bacteria, most often strep or staph. It often occurs after a break in the skin from a scrape, cut, bite, or puncture, or after a rash. Cellulitis may be treated without doing tests to find out what caused it. But your doctor may do tests, if needed, to look for a specific bacteria, like methicillin-resista nt Staphylococcus aureus (MRSA). The doctor has checked you carefully, but problems can develop later. If you notice any problems or new symptoms, get medical treatment right away. How can you care for yourself at home? Take your antibiotics as directed. Do not stop taking them just because you feel better. You need to take the full course of antibiotics. Prop up the infected area on pillows to reduce pain and swelling. Try to keep the area above the level of your heart as often as you can. If your doctor told you how to care for your infection, follow your doctor's instructions. If you did not get instructions, follow this general advice: Wash the area with clean water 2 times a day. Don't use hydrogen peroxide or alcohol, which can slow healing. You may cover the area with a thin layer of petroleum jelly, such as Vaseline, and a non-stick bandage. Apply more petroleum jelly and replace the bandage as needed. Be safe with medicines. Take pain medicines exactly as directed. If the doctor gave you a prescription medicine for pain, take it as prescribed. If you are not taking a prescription pain medicine, ask your doctor if you can take an [id number] medicine. Not available 09/11/2022 10:50:21 Go to [facility] immediately if your symptoms worsen or if you develop new symptoms that concern you. Follow up with a PCP within the next 5-10 days Failure to follow up as recommended may result in adverse health consequences. Take medication as directed with food. Follow-up at [facility] in 2-3 days if no improvement. Apply warm compresses to the area. If swelling, redness and pain increases go to the nearest ER for further evaluation and possibily rule out DVT. Not available 09/11/2022 10:50:16 Reason for Referral None Reported. Problems Name Problem SNOMED Code Status Onset Date Resolution Date Notes Provider Name and Address Organization Details Recorded Time Arthritis 2892892 Active 023 PAM Carbajal - [facility] 08/28/2022 19:01:36 Problem Notes None recorded. Medical Equipment None Reported. Allergies No known drug allergies Medications Name Sig Start Date Stop Date Status Note LastModified by Organization Details LastModified Time alprazolam 1 mg tablet TAKE 1 TABLET BY MOUTH 1 HOUR PRIOR TO PROCEDURE active Not Available Not Available No t Available hydrocodone 5 mg-acetamino phen 325 mg tablet TAKE 1 TABLET BY MOUTH EVERY 4 HOURS NEEDED FOR PAIN active Not Available Not Available No t Available triamcinolon e acetonide 0.1 % topical cream APPLY TOPICALLY TO THE AFFECTED AREA ON TRUNK AND EXTREMITIES TWICE DAILY FOR 2 WEEKS ON THEN 1 WEEK OFF NEEDED active Not Available Not Available No t Available amoxicillin 500 mg tablet TAKE 1 TABLET BY MOUTH THREE TIMES DAILY FOR 7 DAYS active Not Available Not Available N ot Available cephalexin 500 mg capsule TAKE 1 CAPSULE BY MOUTH THREE TIMES DAILY WITH MEALS FOR 10 DAYS active Not Available Not Available Not Available ibuprofen 400 mg tablet TAKE 1 TABLET BY MOUTH THREE TIMES DAILY NEEDED FOR FEVER OR PAIN active Not Available Not Available No t Available ibuprofen active Not Available Not Josy ilable Not Available lidocaine active Not Available Not Josy ilable Not Available sodium fluoride 1.1 % dental paste active Not Available Not Available Not Available Vitals Date Recorded Body height Provider Name an d Address Organization Details Last Updated DateTime 08/28/2022 152.4 cm Mahnaz Marielle PA - [facility] 0 08/28/2022 19:01:07 Date Recorded Body mass index (BMI) Body weight Provider Name and Address Organization Details Last Updated DateTime 08/28/2022 36.1 kg/m2 24367.59 g Mahnaz Marielle PA - [facility] 08/28/2022 19:01:09 Date Recorded Pain severity - 0-10 verbal numeric rating [Score] - Reported Provider Name and Address Organization Details Last Updated DateTime 08/28/2022 0 Mahnaz Seaton PA - [facility] 0 08/28/2022 19:02:13 Date Recorded Respiratory rate Provider Name a nd Address Organization Details Last Updated DateTime 08/28/2022 20 /min Mahnaz Marielle PA - [facility] 0 08/28/2022 19:02:42 Date Recorded Oxygen saturation Oxygen saturation in Arterial blood by Pulse oximetry Provider Name and Address Organization Details Last Updated DateTime 08/28/2022 97 % 97 % Mahnaz Marielle PA - [facility] 08/28/2022 19:03:23 Date Recorded Heart rate Provider Name an d Address Organization Details Last Updated DateTime 08/28/2022 72 /min Mahnaz Seaton PA - [facility] 0 08/28/2022 19:03:29 Date Recorded Body temperature Provider Name a nd Address Organization Details Last Updated DateTime 08/28/2022 97.6 [degF] Mahnaz Seaton PA - [facility] 08/28/2022 19:03:35 Date Recorded Body height Provider Name an d Address Organization Details Last Updated DateTime 09/11/2022 152.4 cm CIERA JARAMILLO PA - [facility] 09/11/2022 10:17:10 Date Recorded Body mass index (BMI) Body weight Provider Name and Address Organization Details Last Updated DateTime 09/11/2022 36.1 kg/m2 78601.59 g CIERA JARAMILLO PA - [facility] 09/11/2022 10:17:17 Date Recorded Pain severity - 0-10 verbal numeric rating [Score] - Reported Provider Name and Address Organization Details Last Updated DateTime 09/11/2022 0 CIERA JARAMILLO PA - [facility] 09/11/2022 10:17:23 Date Recorded Oxygen saturation Oxygen saturation in Arterial blood by Pulse oximetry Provider Name and Address Organization Details Last Updated DateTime 09/11/2022 97 % 97 % CIERA JARAMILLO PA - [facility] 09/11/2022 10:18:46 Date Recorded Heart rate Provider Name an d Address Organization Details Last Updated DateTime 09/11/2022 70 /min CIERA JARAMILLO PA - [facility] 09/11/2022 10:18:51 Date Recorded Respiratory rate Provider Name a nd Address Organization Details Last Updated DateTime 09/11/2022 16 /min CIERA JARAMILLO PA - [facility] 09/11/2022 10:18:58 Date Recorded Body temperature Provider Name a nd Address Organization Details Last Updated DateTime 09/11/2022 98.1 [degF] CIERA JARAMILLO PA - [facility] 09/11/2022 10:19:28 Date Recorded Systolic blood pressure Diastolic blood pressure Provider Name and Address Organization Details Last Updated DateTime 08/28/2022 142 mm[Hg] 93 mm[Hg] Mahnaz Palomares PA - [facility] 08/28/2022 19:03:20 Date Recorded Systolic blood pressure Diastolic blood pressure Provider Name and Address Organization Details Last Updated DateTime 08/28/2022 140 mm[Hg] 90 mm[Hg] PAM MANCERA [address] [place], [address], PA - [facility] 08/28/2022 19:38:53 Date Recorded Systolic blood pressure Diastolic blood pressure Provider Name and Address Organization Details Last Updated DateTime 09/11/2022 143 mm[Hg] 86 mm[Hg] CIERA OSORIOAU PA - [facility] 09/11/2022 10:18:42 Social History Question Answer Notes LastModified by Organizat ion Details LastModified Time Tobacco Smoking Status Never Smoker Mahnaz Palomares null, PA - [facility] 08/28/2022 19:01:43 What Is Your Level Of Alcohol Consumption? Occasional Information not available 08/28/2022 Have You Had Direct Contact, Or Contact During Intimacy, With Monkeypox Rash, Scabs, Or Body Fluids From A Person With Monkeypox? No Information not available 08/28/2022 Do You Use Any Illicit Or Recreational Drugs? No Information not available 08/28/2022 Have You Recently Traveled Abroad? No Information not available 08/28/2022 Do You Or Have You Ever Used Any Other Forms Of Tobacco Or Nicotine? No Information not available 08/28/2022 Sex: Unknown Functional Status None recorded. Mental Status None recorded. Family History Relationship Description Onset Age of this Age Resolved Age Notes LastModified by Organization Details LastModified Time Father No current problems or disability Not available 08/28 19:01:38 Mother No current problems or disability Not available 08/28 19:01:38 Medical History No medical history recorded. Gynecological History Statement/Question Response Is there any chance of ? No LMP N/A Obstetrics History GPAL:G 0 P 0 0 0 0 Immunizations Vaccine Type Date Status Note Provider Nam e and Address Organization Details Recorded Time Influenza, MDCK, quadrivalent, PF 11/14/2021 completed CIERA CLINT null, PA - [facility] 09/11/2022 10:16:41 Influenza, MDCK, quadrivalent, PF 12/13/2020 completed CIERA CLINT null, PA - [facility] 09/11/2022 10:16:41 Influenza, recombinant, quadrivalent, PF 11/20/2019 completed CIERA CLINT null, PA - [facility] 09/11/2022 10:16:42 COVID-19, mRNA, LNP-S, PF, 30 mcg/0.3 mL dose 04/26/2020 completed CIERA CLINT null, PA - [facility] 09/11/2022 10:16:42 COVID-19, mRNA, LNP-S, PF, 30 mcg/0.3 mL dose 05/17/2020 completed CIERA CLINT null, PA - [facility] 09/11/2022 10:16:42 COVID-19, mRNA, LNP-S, PF, 30 mcg/0.3 mL dose 01/17/2021 completed CIERA CLINT null, PA - [facility] 09/11/2022 10:16:42 COVID-19, mRNA, LNP-S, PF, 30 mcg/0.3 mL dose, sheela-sucrose 09/18/2021 completed CIERA CLINT null, PA - [facility] 09/11/2022 10:16:42 COVID-19, mRNA, LNP-S, bivalent, PF, 30 mcg/0.3 mL dose 01/21/2022 completed CIERA CLINT null, PA - [facility] 09/11/2022 10:16:42 Tdap 07/01/2018 completed CIERA CLINT null, PA - [facility] 09/11/2022 10:16:42 Influenza, split virus, trivalent, PF 11/25/2016 completed CIERA CLINT null, PA - [facility] 09/11/2022 10:16:42 Influenza, split virus, quadrivalent, PF 11/17/2018 completed CIERA CLINT null, PA - [facility] 09/11/2022 10:16:42 Influenza, split virus, quadrivalent, PF 12/03/2017 completed CIERA CLINT null, PA - [facility] 09/11/2022 10:16:42 Past Encounters Encounter ID Performer Location Encounter Start Date Encounter Closed Date Diagnosis/Indication Diagnosis SNOMED-CT Code Diagnosis ICD10 Code Diagnosis Note [id number] [address] [address] 11/20/2018 08:49:03 11/20/2018 09:04:00 [id number] PAM MANCERA [address] [address] 08/28/2022 18:49:00 08/28/2022 19:37:25 Cellulitis of lower leg [id number] L03.119 Elevated blood-pressure reading without diagnosis of hypertension 392019765 R03.0 You blood pressure was elevated during your visit with us and you do not have a history of Hypertensi on or taking blood pressure medication s currently. This is important to monitor and address with your PCP. Undiagnose d hypertensi on that remains untreated can lead to:1. Kidney Failure2. Stroke3. Congestive Heart Failure. Please get a blood pressure cuff and keep a journal of your daily blood pressure. Once in the AM and Once in a PM. Please schedule an appointmen t with your Primary Care Doctor to discuss the results of your journal. [id number] Bong Mujica NP [address] [address] 09/11/2022 09:58:30 09/11/2022 10:57:25 Varicose veins of lower extremity 26690509 I83.891 strongly encouraged to follow up with vascular speciality as scheduled. Cellulitis of right lower limb [id number] L03.115 Health Concerns Section Related Observation LastModified by Organization Detai ls LastModified Time None Recorded Concern Status LastModified by Organization Details LastModified Time None Recorded Advance Directives Directive None Recorded Payers Encounter Date Sequence Insurance Name Policy Number Policy Huffman Covered Member ID Huffman Member ID Guarantor Name 11/20/2018 1 [facility] [id number] Janelle Paz Loera [id number] Janelle Loera 08/28/2022 1 [facility] [id number] Janelle Paz Loera [id number] Janelle Loera 09/11/[address] [place] [id number] Janelle Paz Loera [id number] Janelle Loera Notes Date Note Type Note Provider Name and Address Organization Details Recorded Time 3 text/html UC Rash/Skin LesionReported bypatient.source of patient informationInformation obtained from patient; Patient arrived at Urgent Care ambulatory Location:legs; left anterior lower yarbrough. Quality:red; Was itchy now not. becoming more red. Severity:mild Duration:2 days Context:recent outdoor activity Alleviating Factors:steroid cream Associated Symptoms:no fever; no fatigueNotes:The patient reports was out watering her flower and she felt like she got a bite on her leg. The patient states that it was itchy. She states that originally it look like a but bite so she put some neosporin on it. Today she woke up and it has turned a dark red and it is spreading. The itching is better. No history of cellulitis. PAM MANCERA [address] [place], [address], [employer] [employer] 08/28/2022 19:39:22 3 text/html Skin Redness UCReported bypatient.Location:bilatera l legs; 4 x 4 cm red patch on medial surface of right lower leg. have dependent edema bilateral legs 2+ . patient was previously treated for cellulitis on the left lower leg which responded better. patient had ultrasound done and is working with vascular specialist for her varicose veins. this redness appear 2-3 days ago and patient thinks maybe it is poison whitney or poison oak. Quality:not painful;erythematous;warm Severity:mild;worsening Duration:3 Onset:gradual onset Alleviating factors:nothing gives relief Aggravating factors:standing Symptoms:no fever; no nausea; no vomiting;swelling Bong Mujica NP [address] [place], [address], [employer] 09/11/2022 10:55:44 OBGyn Episode No OBEpisode recorded.
== END 2024-03-21 09:16 | disposition home or self-care (01) ==
LOC: HO.MAMMO 09:15
PROVIDERS: PCP Internal Medicine; Visit Provider Internal Medicine
DX: Z12.31 Encounter for screening mammogram for malignant neoplasm of breast (principal)
CPT/HCPCS: 77063; 77067

== ENCOUNTER → 2024-03-21 09:15 | Outpatient (BNV) | CPT/HCPCS: 77063; 77067 ==

== ENCOUNTER 2024-04-11 10:31 | Outpatient (AMB) | payer BC, SELFPAY ==
--- NOTE | 2024-04-11 10:19 | A.OFFVIS_ITS ---
Vital Signs 04/11/24 10:32 Height 5 ft Weight 190 lb BMI 37.1 Pulse 82 Pulse Source Pulse Oximeter Pulse Oximetry (%) 97 Oxygen Delivery Method Room Air Intake Visit Reasons: cough/asthma Attenuator Required: No Armature And Rotor Winder: Armature And Rotor Winder offered & declined Accompanied by: Self / Same As Patient Allergies cat dander [CAT] Allergy (Unknown, Verified 04/11/24 10:37) DIFFICULTY BREATHING Medication List - Last Reconciled 04/11/24 by Lyndsey Ruiz LPN albuterol sulfate 90 mcg/actuation 1 - 2 puffs inhalation QID PRN calcium carbonate (Calcium 500) 500 mg PO DAILY flaxseed oil 1,000 mg PO DAILY fluoride (sodium) 1.1% 1 appl PO DAILY 30 days ibuprofen 400 mg PO TID PRN 90 days levothyroxine 50 mcg PO DAILY 90 days multivitamin 1 tab PO DAILY triamcinolone acetonide 0.1% 1 appl topical BID-TID umeclidinium-vilanterol 62.5-25 mcg/actuation (Anoro Ellipta) 1 inh inhalation DAILY 60 days HPI HPI cough/asthma: Details: Janelle is a pleasant 63 year old female, former smoker, 10 pyh, quit 10 years ago with underlying asthma. She was referred by PCP for pulmonary evaluation. She reports URI developed in December 2023 after trip to [place], seen in urgent care on 02/01 treated with prednisone with minimal improvement. She was seen again at an urgent care on 02/21 for persistent cough and wheezing, treated with prednisone. On 03/30 she called PCP office as symptoms were not improving, CXR revealed developing LLL PNA, treated with azithromycin, cefpodoxime and prednisone as well as started on Anoro. Since then she reports near complete resolution of cough. She does report wheezing occasionally, however not using albuterol MDI. She reports asthma dx as an adult, never requiring intubation. She endorses seasonal allergies, no recent allergy testing. She has two cats at home. She denies any occupational exposures. She reports sister with asthma, otherwise no pertinent family history. [facility] Medical History (Updated 04/11/24 @ 11:36 by Lamar Brown NP) Osteoarthritis Surgical History Status post ablation of incompetent vein using laser History of appendectomy Family History Mother Cardiac arrest Father Poor circulation of extremity Family/Other Mental health disorder Substance use disorder Brother Prostate cancer Social History (Updated 04/11/24 @ 10:40 by Lyndsey Ruiz LPN) Housing: House Alcohol intake: current Alcohol intake frequency: a few times a week Alcohol type: other Patient Tobacco Use Status: Former Tobacco user Tobacco use type: Cigarette Cigarette Packs Per Day: 1 Years Smoked: 15 Quit 1993 e-Cigarette/Vaping Use: Never Used Second Hand Smoke Exposure: No service: No Current occupational status: retired Sexual orientation: Lesbian/Edouard/Homosexual Gender identity: Female Cognitive needs: No Hearing needs: No Vision needs: Yes Review of Systems Const Denies chills, Denies excessive sweating, Denies fever(s), Denies headache(s) and Denies night sweats Eyes Denies dry eyes, Denies irritation and Denies itchy eyes ENT Reports Normal hearing present, Denies headache(s), Denies nasal congestion, Denies nasal discharge, Denies post nasal drip and Denies sore throat Card Denies chest pain, Denies chest pain at rest, Denies chest pain with activity, Denies claudication, Denies leg edema, Denies dyspnea, Denies dyspnea on exertion, Denies orthopnea and Denies paroxysmal nocturnal dyspnea Resp Denies chest congestion, Denies excessive phlegm production, Denies pain on inspiration, Denies pain with cough, Denies dyspnea, Denies dyspnea on exertion and Denies stridor Musc Denies myalgias Neuro Reports Normal hearing present and Denies headache(s) Endo Denies excessive sweating Wing/Lymph Denies lymphadenopathy Aller/Immun Denies itchy eyes and Denies seasonal rhinorrhea Physical Exam Vital Signs: Last Vital Signs Pulse 82 04/11/24 10:32 Pulse Ox 97 04/11/24 10:32 Oxygen Delivery Method Room Air 04/11/24 10:32 BMI result Body Mass Index 37.1 Const General: cooperative, healthy appearing, comfortable, no acute distress, well developed and alert Nutritional Appearance: obese Orientation/consciousness: patient oriented x3 Limitations: no limitations HEENT Head: Yes normal to inspection, Yes normocephalic and Yes atraumatic Ears: hearing grossly normal bilaterally and external ears normal Eyes General: appearance normal, both eyes and all related structures Eyelids: Yes eyelids normal Sclerae: sclerae normal EOM: EOMs intact bilaterally Neck Neck: Yes normal visual inspection and Yes no lymphadenopathy Lymphatic: no lymphadenopathy noted Chest Chest palpation & inspection: normal inspection of the chest Resp Effort & Inspection: normal respiratory effort, able to speak in complete sentences, no audible wheezes, no cough, no stridor, not tachypneic, no tripod positioning and no use of accessory muscles Auscultation: clear to auscultation bilaterally Cardio Jugular venous distension: no JVD Rate: regular rate Rhythm: regular rhythm Skin Other: warm, dry General skin exam: no rashes or lesions noted Neuro General: patient oriented x3 Cranial nerves: Yes Normal hearing present Cognition (Neuro): normal cognition Gait exam (Neuro): Normal gait present Extrem General: Yes normal to inspection, Yes capillary refill normal, Yes no clubbing, cyanosis or edema and Yes no pedal edema Psych Appearance: grossly normal and well kempt Speech and movement: Normal speech and movement present and Clear speech present Affect: normal affect Attitude: cooperative Thought process: Normal thought process present Thought content: Normal thought content present Insight: Good insight present (Psych) Judgement: Good judgement present (Psych) Assessment & Plan Assessment & Plan (1) Asthma: Code(s): J45.909 - Unspecified asthma, uncomplicated Category: Medical (2) Environmental allergies: Code(s): Z91.09 - Other allergy status, other than to drugs and biological substances Category: Medical (3) History of recent pneumonia: Code(s): Z87.01 - Personal history of pneumonia (recurrent) Category: Medical Plan Janelle presents for pulmonary evaluation after recently being diagnosed with LLL PNA and treated with azithromycin, vantin and prednisone. Since completing treatment as well as starting Anoro, she reports significant improvements in symptoms. Encouraged to continue, and use albuterol MDI PRN. Will send for RAST to assess for an allergic component. Prior PFT from 2014 consistent with asthma, will hold off on repeat PFT at this time. Will send for repeat CXR to assess for resolution of PNA. All questions were answered and patient is in agreement of plan. Will follow up in 6-8 weeks or sooner if needed. Orders: Orders Resp Allergy Profile Region I Today Z91.09 - Other allergy status, other than to drugs and biological substances Immunoglobulin E Today Z91.09 - Other allergy status, other than to drugs and biological substances XR chest 2V Today Z87.01 - Personal history of pneumonia (recurrent) Complete Blood Count Auto Diff Today Z91.09 - Other allergy status, other than to drugs and biological substances Coding Level of Care Code New Pt Level 4 (42777) Diagnoses Asthma J45.909 Environmental allergies Z91.09 History of recent pneumonia Z87.01
[2024-04-11 10:32] VITALS: PULSE 82; O2SAT 97; BMI 37.1
--- OUTSIDE RECORDS SUMMARY | 2024-04-11 11:29 | XMS_ITS | Continuity of Care Document ---
Author Organization [facility] Address [address] [place] [address] Phone Care Team Providers Care Senior Procurement Manager Name Role Phone Deandre HARDY, RVT, ANCELMO, [...] CT & [place] Jenn For [facility] Confucianist [facility], [address] [place] [address] Dr K[address]Jermaine [place], [id number], [place] tel:[phone] CVR [facility] Venous insufficienc y (chronic) (peripheral) 4 Deandre HARDY RVT, ANCELMO West. [address] [place] [address], [facility] [place], [id number], [place]. tel:[phone] Referring Provider: Bertha Zepeda MD, [address] [facility] , [address] [place] [address] D/B/A: [place], [address]. tel:[phone] Jenn [facility] Confucianist [facility], [address] [place] [address] Dr Kline 1000Suite Jermaine Godoy [place], [id number], [place] tel:[phone] CVR - [facility] Encounter for follow-up examination after completed treatment for conditions other than malignant neVaricose veins of bilateral lower extremities with pain 4 Deandre HARDY RVT, ANCELMO West. [address] [place] [address] Suite [facility], [facility] [place], [id number], [place]. tel:[phone] Referring Provider: Bertha Zepeda MD, 2 [facility] , [address] [place] [address] D/B/A: [place], [address]. tel:[phone] Jenn Chavez Vein Confucianist [facility], [address] [place] [address] Dr Kline [address]Suite Jermaine Godoy [place], [id number], [place] tel:[phone] CVR - [facility] Encounter for follow-up examination after completed treatment for conditions other than malignant neVaricose veins of left lower extremity with pain Apr- 4 Deandre HARDY RVT, ANCELMO West. [address] [facility], [address], [facility], [place], [id number], [place]. tel:[phone] Referring Provider: Bertha Zepeda MD, [address] [facility] [address], [address] West D/B/A: carlosyomiller [place], [address]. tel:[phone] [facility], [address] [place] [address] [address]Suite Jermaine Godoy [place], [id number], [place] tel:[phone] CVR - [facility] Chronic venous hypertension (idiopathic) with inflammation of left lower extremity 4 Deandre HARDY RVT, ANCELMO West. [address] [facility], [address], [facility], [place], [id number], [place]. tel:[phone] Referring Provider: Bertha Zepeda MD, 2 [facility] [address], [address] [place] D/B/A: carlosyomiller [place], [address]. tel:[phone] [facility], [address] [place] [address] [address]Suite Jermaine Godoy [place], [id number], [place] tel:[phone] CVR - [facility] Encounter for follow-up examination after completed treatment for conditions other than malignant nePain in right leg 4 Deandre HARDY RVT, ANCELMO West. [address] [facility], [address], [facility] [place], [id number], [place]. tel:[phone] Referring Provider: Bertha Zepeda MD, [address] [facility] [address], [address] [place] D/B/A: [place], [address]. tel:[phone] Jenn For Vein Confucianist [facility], [address] [place] [address] [address] 1000Jermaine [place], [id number], [place] tel:[phone] CVR - [facility] Varicose veins of right lower extremity with other complication s 4 Deandre HARDY RVT, ANCELMO West. [address] [facility], [address], [place], [place], [id number], [place]. tel:[phone] Referring Provider: Bertha Zepeda MD, [address] [facility] [address], [address] [place] D/B/A: [place]a [place], [address]. tel:[phone] Office/Outpt E&M Established 15 Mins [facility], [address] [place] [address] Dr [address] 1000Jermaine [place], [id number], [place] tel:[phone] CVR - [facility] Venous insufficienc y (chronic) (peripheral) 4 Deandre HARDY RVT, ANCELMO West. [address] [place] [address], Suite [facility], [place], [place], [id number], [place]. tel:[phone] Referring Provider: Bertha Zepeda MD, [address] [facility] , [address] [place] D/B/A: [place], [address]. tel:[phone] [place] For Vein Confucianist [facility], [address] [place] [address] [address] 1000Jermaine [place], [id number], [place] tel:[phone] CVR - [facility] Chronic venous hypertension (idiopathic) with other complication s of bilateral lower extremity 4 Deandre HARDY RVT, ANCELMO West. [address] [facility], [address], [place], [place], [id number], [place]. tel:[phone] Referring Provider: Bertha Zepeda MD, [address] [facility] , [address] [place] D/B/A: [place], [address]. tel:[phone] Jenn Chavez Vein Confucianist [facility], [address] [place] [address] [address] 1000Jermaine [place], [id number], [place] tel:[phone] CVR - [place] [facility] [place] Encounter for follow-up examination after completed treatment for conditions other than malignant neChronic venous hypertension (idiopathic) with other complication s of right lower extremity Jan-02 23- 3 [facility] Bravo. [address] [facility], Suite [facility], [place], [address], [place]. tel:[phone] Referring Provider: Bertha Zepeda MD, [address], [address] [place] D/B/A: [place], [address]. tel:[phone] Jenn For Vein Confucianist [facility], [address] [place] [address] Dr [address] 1000Jermaine [place], [id number], [place] tel:[phone] CVR - [place] [facility] [place] Varicose veins of right lower extremity with other complication s 3 [facility] Bravo. [address] [place] [address], Suite [facility], [place], [address], [place]. tel:[phone] Referring Provider: Bertha Zepeda MD, [address] [facility] [address], [address] [place] D/B/A: [place], [address]. tel:[phone] Jenn For [facility] Confucianist [facility], [address] [place] [address] Dr [address]Suite Jermaine Godoy [place], [id number], [place] tel:[phone] CVR - [place] Varicose veins of right lower extremity with other complication s 3 Shamir [facility]. [facility] [facility], Suite [facility], [place], [address], [place]. tel:[phone] Referring Provider: Bertha Zepeda MD, [address] [facility] [address], [address] [place] D/B/A: [place], [address]. tel:[phone] Jenn For Vein Confucianist [facility], [address] [place] [address] Dr [address]Suite 1000Jermaine [place], [id number], [place] tel:[phone] CVR - [place] Varicose veins of left lower extremity with other complication s 3 Roxann Jaramillo. [address] [facility], [address], [place], [place], [id number], [place]. tel:[phone] Referring Provider: Bertha Zepeda MD, [address] [facility] [address], [address] [place] D/B/A: [place], [address]. tel:[phone] Jenn Chavez Vein Confucianist [facility], [address] [place] [address] Dr [address] 1000Jermaine [place], [id number], [place] tel:[phone] CVR - [place] Encounter for follow-up examination after completed treatment for conditions other than malignant neVaricose veins of left lower extremity with pain 3 Shamir HARDY FACS Cherise Bravo. [address] [facility], Suite [facility], [place], [address], [place]. tel:[phone] Referring Provider: Bertha Zepeda MD, [address] [facility] [address], [address] [place] [address] D/B/A: [place], [address]. tel:[phone] [place] Kathy Vein Confucianist [facility], [address] [place] [address] Dr [address] 1000Jermaine [place], [id number], [place] tel:[phone] CVR - [place] Varicose veins of left lower extremity with other complication s 3 Shamir Bravo. [address] [facility], Suite [facility], [place], [address], [place]. tel:[phone] Referring Provider: Bertha Zepeda MD, [address] [facility] [address], [address] [place] D/B/A: [place], [address]. tel:[phone] Jenn Chavez Vein Confucianist [facility], [address] [place] [address] Dr [address] 1000Jermaine MD, [id number], [place] tel:[phone] CVR - [place] Varicose veins of left lower extremity with other complication s 3 Shamir Bravo. [address] [facility] Suite [facility], [place], [address], [place]. tel:[phone] Referring Provider: Bertha Zepeda MD, [address] [facility] [address]Jac[address], [address] [place] [address] D/B/A: carlosy[place], [address]. tel:[phone] Offic/outpt E&m Estab 5 Min Trial - Telemedicine [facility], [address] [place] [address] [facility] 1000[address] 1000Jermaine [place], [id number], [place] tel:[phone] CVR - [place] Varicose veins of left lower extremities with pain 3 Roxann Jaramillo. [facility] [place] [address], [place], [id number], [place]. tel:[phone] Referring Provider: Bertha Zepeda MD, [address] [facility] [address]Jacques, [address] D/B/A: carlosyom[place], [address]. tel:[phone] Office/Outpt E&M Established 15 Mins [facility], [address] [place] [address] [address] 1000Jermaine [place], [id number], [place] tel:[phone] CVR - [place] Varicose veins of left lower extremities with painPain in right leg 3 Shamir HARDY FACS T ANCELMO Bravo. [facility] [address], [place], [address], [place]. tel:[phone] Referring Provider: Bertha Zepeda MD, 2 [facility] , [address] [place] [address] D/B/A: [place], [address]. tel:[phone] [facility], [address] [place] [address] [address] 1000Jermaine [place], [id number], [place] tel:[phone] CVR - [place] Venous insufficienc y (chronic) (peripheral) Pain in right legPain in left leg 3 Shamir HARDY FACS BEN Bravo. [address] [place] [address], [place], [address], [place]. tel:[phone] Referring Provider: Bertha Zepeda MD, [address] [facility] , [address] [place] D/B/A: [place], [address]. tel:[phone] Office/Outpt E&M Established 15 Mins [facility], [address] [facility] [address], [place], [id number], tel:[phone] CVR - [facility] Body mass index (BMI) 37.0-37.9, adultVenous insufficienc y (chronic) (peripheral) Shamir HARDY FACS RVT [facility] Arturo Bravo. [facility] [facility], [address], [place], [address], [place]. tel:[phone] Referring Provider: Bertha Zepeda MD, 2 [facility] , [address] [place] [address] D/B/A: [place], [address]. tel:[phone] Family History Family Member Type Diagnosis Age At Onset No Information Payers Payer name Insurance type Covered constitution party ID [facility] [employer] [id number] Social History Type Description Quantity Date Captured [...]
--- OUTSIDE RECORDS SUMMARY | 2024-04-11 11:29 | XMS_ITS | Data Portability ---
Author Organization PAM grier [address] Address [address] [place] [address] Assessment No assessment recorded. Plan of Treatment Reminders Order Date Submit Date Provider Last Modified By Organization Details Last Modified Time Details Appointments None recorded. Lab None recorded. Referral None recorded. Procedures None recorded. Surgeries None recorded. Imaging None recorded. Medication Orders cephalexin 500 mg capsule 2022 023 [employer] #[id number], [address] [place], [place], [id number], 3 10:50:32 cephalexin 500 mg capsule 2022 023 [facility] [employer] [facility][id number], [address] [place], [place], [id number], 3 19:35:09 Patient TargetsNo targets recorded. Patient Instructions Encounter Date Encounter Id Patient Instructions Last Modified By Organization Details Last Modified Time 08/28/2022 [id number] cellulitis: care instructions [email or web address] Not available 08/28/2022 19:34:54 Based on your [...] that are tender Thank you for using [employer] today, please don't hesitate to call or reach out to us if you have any questions or concerns. Not available 08/28/2022 19:34:53 09/11/2022 [id number] cellulitis: care instructions Not available 09/11/2022 10:50:22 [...] your doctor if you can take an rikn-jvp-rudltif medicine. Not available 09/11/2022 10:50:21 Go to [...] and Address Organization Details Recorded Time Arthritis 3316794 Active 023 PAM Carbajal - [facility] [...] Not Available Vitals Date Recorded Body height Body mass index (BMI) Body weight Pain severity - 0-10 verbal numeric rating [Score] - Reported Respiratory rate Oxygen saturation Oxygen saturation in Arterial blood by Pulse oximetry Heart rate Body temperature Systolic blood pressure Diastolic blood pressure Provider Name and Address Organization Details Last Updated DateTime 3 152.4 cm 36.1 kg/m2 06075.5 9 g 0 20 /min 97 % 97 % 72 /min 97.6 [degF] 142 mm[Hg] 93 mm[Hg] Mahnaz Palomares PA [employer] [facility] 3 19:03:20 Date Recorded Systolic blood pressure Diastolic blood pressure Provider Name and Address Organization Details Last Updated DateTime 08/28/2022 140 mm[Hg] 90 mm[Hg] PAM MANCERA [address] [place] [address], [address], [place] - [employer] [facility] 08/28/2022 19:38:53 Date Recorded Body height Body mass index (BMI) Body weight Pain severity - 0-10 verbal numeric rating [Score] - Reported Oxygen saturation Oxygen saturation in Arterial blood by Pulse oximetry Heart rate Respiratory rate Body temperature Systolic blood pressure Diastolic blood pressure Provider Name and Address Organization Details Last Updated DateTime 3 152.4 cm 36.1 kg/m2 64357.5 9 g 0 97 % 97 % 70 /min 16 /min 98.1 [degF] 143 mm[Hg] 86 mm[Hg] CIERA JARAMILLO PA [employer] [facility] 3 10:18:42 Social History Question Answer Notes LastModified by Organizat ion Details LastModified Time Tobacco Smoking Status Never Smoker Mahnaz ugarte PA [employer] [facility] 08/28/2022 19:01:43 What Is Your [...] SNOMED-CT Code Diagnosis ICD10 Code Diagnosis Note [id number] [address] [address] 11/20/2018 08:49:03 11/20/2018 09:04:00 [id number] PAM MANCERA [address] [place] [address] 08/28/2022 18:49:00 08/28/2022 19:37:25 Cellulitis of lower leg 806607107 L03.119 Elevated blood-pressure reading without diagnosis of hypertension 525809357 R03.0 You blood pressure was elevated during [...] to discuss the results of your journal. [id number] Bong Mujica NP [address] Cristina Rodrigues [address] [place] [address] 09/11/2022 09:58:30 09/11/2022 10:57:25 Varicose veins of lower extremity 10401975 I83.891 strongly encouraged to follow up with vascular speciality as scheduled. Cellulitis of right lower limb 9195453736 3955397 L03.115 Health Concerns Section Related Observation LastModified by Organization Detai ls LastModified Time None Recorded Concern Status LastModified by Organization Details LastModified Time None Recorded Advance Directives Directive None Recorded Payers Encounter Date Sequence Insurance Name Policy Number Policy Huffman Covered Member ID Huffman Member ID Guarantor Name 11/20/2018 1 [facility] [id number] Janelle Paz Loera [id number] Janelle Loera 08/28/2022 1 [facility] [id number] Janelle Paz Loera [id number] Janelle Loera 09/11/2022 1 [facility] [id number] Janelle Paz Loera [id number] Janelle Loera Notes Date Note Type Note [...] No history of cellulitis. PAM MANCERA [address] [place], [address], [place] [facility] 08/28/2022 19:39:22 3 text/html Skin Redness UCReported [...] no vomiting;swelling Bong Mujica NP [address] [place], [address], [place] PA [employer] [facility] 09/11/2022 10:55:44 OBGyn Episode No OBEpisode recorded.
== END 2024-04-11 11:05 | disposition home or self-care (01) ==
PROVIDERS: PCP Internal Medicine; Visit Provider Nurse Practitioner Family
DX: J45.909 Unspecified asthma, uncomplicated (principal); Z91.09 Other allergy status, other than to drugs and biological substances; Z87.01 Personal history of pneumonia (recurrent)
CPT/HCPCS: 99204

== ENCOUNTER → 2024-04-11 10:31 | Outpatient (BNVA) | payer BC, SELFPAY | PROVIDERS: PCP Internal Medicine; Visit Provider Nurse Practitioner Family ==

== ENCOUNTER 2024-04-21 09:50 | Outpatient (REF) | payer BC, SELFPAY ==
--- NOTE | ~2024-04-21 | XR_ITS ---
EXAMINATION: XR CHEST CLINICAL INFORMATION: Z87.01 - Personal history of pneumonia (recurrent) COMPARISON: 02/22/2024 TECHNIQUE: 2 views of the chest were obtained. FINDINGS: The lungs are well-expanded and clear of acute process. Heart size and poor vascularity is normal. There is mild levoscoliosis, similar to previous study. Otherwise no gross bony abnormality seen. XR/XR chest 2V IMPRESSION: Unremarkable chest examination. Electronically signed by: Nato Tavera MD 04/21/2024 10:43 AM NISHI
[2024-04-21 10:06] LABS: MANUAL DIFF FLAG NO
[2024-04-21 10:40] LABS: Basophils Percent Auto 0.9 % (0-2); Eosinophils Absolute Auto 0.5 X10*3/uL (0.0-0.4); Eosinophils Percent Auto 10.5 % (0-4); Hematocrit 40.7 % (37.0-47.0); Hemoglobin 13.7 g/dl (12.0-16.0); Imm Gran Abs Auto 0.01 X10*3/uL (0.00-0.03); Imm Gran Pct Auto 0.2 % (0.0-0.4); Lymphocytes Percent Auto 22.1 % (20-40); Mean Corpuscular HGB Conc 33.7 g/dl (31.0-35.0); Mean Corpuscular Hemoglobin 30.9 pg (27.0-33.0); Mean Corpuscular Volume 91.7 fL (80.0-98.0); Mean Platelet Volume 10.6 fL (9.4-12.3); Monocytes Absolute Auto 0.2 X10*3/uL (0.1-1.2); Monocytes Percent Auto 4.9 % (2-11); Neutrophils Absolute Auto 2.7 x10*3/uL (2.0-8.3); Neutrophils Percent Auto 61.4 % (45-73); Platelet Count 207 X10*3/uL (160-400); Red Blood Count 4.44 X10*6/uL (4.20-5.50); Red Cell Distribution Width 13.1 % (11.0-16.0); White Blood Count 4.5 X10*3/uL (4.8-10.8)
--- OUTSIDE RECORDS SUMMARY | 2024-04-21 10:44 | XMS_ITS | Data Portability ---
Author Organization PAM grier [address] Address [address] [place] [address] Assessment No assessment recorded. Plan of Treatment Reminders Order Date Submit Date Provider Last Modified By Organization Details Last Modified Time Details Appointments None recorded. Lab None recorded. Referral None recorded. Procedures None recorded. Surgeries None recorded. Imaging None recorded. Medication Orders cephalexin 500 mg capsule 2022 023 [employer] #[id number], [address] [place], [place], [id number], 3 10:50:32 cephalexin 500 mg capsule 2022 023 [facility]OS [facility] [employer] #[id number], [address] [place], [place], [id number], 3 19:35:09 Patient TargetsNo targets recorded. Patient Instructions Encounter Date Encounter Id Patient Instructions Last Modified By Organization Details Last Modified Time 08/28/2022 [id number] cellulitis: care instructions [email or web address] Not available 08/28/2022 19:34:54 Based on your [...] that are tender Thank you for using [employer] today, please don't hesitate to call or reach out to us if you have any questions or concerns. Not available 08/28/2022 19:34:53 09/11/2022 [id number] cellulitis: care instructions Not available 09/11/2022 10:50:22 [...] your doctor if you can take an dhdm-vxc-dajmitq medicine. Not available 09/11/2022 10:50:21 Go to [...] and Address Organization Details Recorded Time Arthritis 9146623 Active 023 PAM Carbajal - [facility] [...] Updated DateTime 3 152.4 cm 36.1 kg/m2 66973.5 9 g 0 20 /min 97 % 97 % 72 /min 97.6 [degF] 142 mm[Hg] 93 mm[Hg] Mahnaz Palomares PA [employer] [facility] 3 19:03:20 Date Recorded Systolic blood pressure Diastolic blood pressure Provider Name and Address Organization Details Last Updated DateTime 08/28/2022 140 mm[Hg] 90 mm[Hg] PAM MANCERA [address] [place] [address], [address], [place] - [employer] [facility] 08/28/2022 19:38:53 Date Recorded Body height Body mass index (BMI) Body weight Pain severity - 0-10 verbal numeric rating [Score] - Reported Oxygen saturation Oxygen saturation in Arterial blood by Pulse oximetry Heart rate Respiratory rate Body temperature Systolic blood pressure Diastolic blood pressure Provider Name and Address Organization Details Last Updated DateTime 3 152.4 cm 36.1 kg/m2 74521.5 9 g 0 97 % 97 % 70 /min 16 /min 98.1 [degF] 143 mm[Hg] 86 mm[Hg] CIERA JARAMILLO PA [employer] [facility] 3 10:18:42 Social History Question Answer Notes LastModified by Organizat ion Details LastModified Time Tobacco Smoking Status Never Smoker Mahnaz ugarte PA [employer] [facility] 08/28/2022 19:01:43 What Is Your [...] SNOMED-CT Code Diagnosis ICD10 Code Diagnosis Note [id number] [address] [address] 11/20/2018 08:49:03 11/20/2018 09:04:00 [id number] PAM MANCERA [address] [place] [address] 08/28/2022 18:49:00 08/28/2022 19:37:25 Cellulitis of lower leg 102338335 L03.119 Elevated blood-pressure reading without diagnosis of hypertension 961680423 R03.0 You blood pressure was elevated during [...] to discuss the results of your journal. [id number] Bong Mujica NP [address] Cristina Rodrigues [address] [place] [address] 09/11/2022 09:58:30 09/11/2022 10:57:25 Varicose veins of lower extremity 00395469 I83.891 strongly encouraged to follow up with vascular speciality as scheduled. Cellulitis of right lower limb 9380736212 5737872 L03.115 Health Concerns Section Related Observation LastModified by Organization Detai ls LastModified Time None Recorded Concern Status LastModified by Organization Details LastModified Time None Recorded Advance Directives Directive None Recorded Payers Encounter Date Sequence Insurance Name Policy Number Policy Huffman Covered Member ID Huffman Member ID Guarantor Name 11/20/2018 1 [facility] [id number] Janelle Paz Loera [id number] Janelle Loera 08/28/2022 1 [facility] [id number] Janelle Paz Loera [id number] Janelle Loera 09/11/2022 1 [facility] [id number] Janelle Paz Loera [id number] Janelle Loera Notes Date Note Type Note [...] PAM MANCERA [address] [place], [address], [place] [employer] 08/28/2022 19:39:22 3 text/html Skin Redness UCReported [...] factors:standing Symptoms:no fever; no nausea; no vomiting;swelling Bnog Mujica NP [address] [place], [address], [place] PA [employer] [facility] [facility] 09/11/2022 10:55:44 OBGyn Episode No OBEpisode recorded.
[2024-04-26 20:24] LABS: Class Alternaria alternata 0; Class Aspergillus fumigatus 0; Class Bermuda Grass 0/1; Class Birch 1; Class Cat Dander 4; Class Cladosporium herbarum 0; Class Cockroach 0/1; Class Common Ragweed 0/1; Class Cottonwood 0/1; Class Derm. pterony 0/1; Class Dermatophagoides farinae 0/1; Class Dog Dander 2; Class Elm 0/1; Class Maple Box Elder 1; Class Mountain Cedar 0/1; Class Mouse Urine Protein 0; Class Mugwort 0; Class Oak 0/1; Class Penicillium crysogenum 0; Class Rough Pigweed 0; Class Sheep Sorrel 0/1; Class Sycamore 0/1; Class Timothy Grass 0/1; Class Walnut Tree 1; Class White Ash 0/1; Class White Mulberry 0; D001 IgE D pteronyssinus 0.34 kU/L; D002 - IgE D farinae 0.29 kU/L; E005 - IgE Dog Dander 1.43 kU/L; E072-IgE Mouse Urine <0.10 kU/L; G002 IgE Bermuda Grass 0.15 kU/L; G006 - IgE Timothy Grass 0.18 kU/L; I006-IgE Cockroach, German 0.22 kU/L; Immunoglobulin E 248 kU/L (<OR=114); M001 IgE Penicillium chrysogen <0.10 kU/L; M002 - IgE Cladosporium herbar <0.10 kU/L; M003 - IgE Aspergillus fumigat <0.10 kU/L; M006 - IgE Alternaria alternat <0.10 kU/L; T001 IgE Maple/Box Elder 0.42 kU/L; T003 IgE Common Silver Birch 0.41 kU/L; T006 - IgE Cedar, Mountain 0.14 kU/L; T008 IgE Elm, American 0.32 kU/L; T010 - IgE Walnut 0.57 kU/L; T011 - IgE Maple Leaf Sycamore 0.29 kU/L; T014 - IgE Cottonwood 0.23 kU/L; T015 - IgE Ash, White 0.15 kU/L; T070 - IgE White Mulberry <0.10 kU/L; W001 - IgE Ragweed, Short 0.12 kU/L; W006 - IgE Mugwort <0.10 kU/L; W014 IgE Pigweed, Common <0.10 kU/L
== END 2024-04-21 09:51 | disposition home or self-care (01) ==
LOC: HO.XRAY 09:50
PROVIDERS: PCP Internal Medicine; Visit Provider Nurse Practitioner Family
DX: Z91.09 Other allergy status, other than to drugs and biological substances (principal); Z87.01 Personal history of pneumonia (recurrent)
CPT/HCPCS: 36415; 71046; 82785; 85025; 86003

== ENCOUNTER → 2024-04-21 10:08 | Outpatient (BNV) | payer BC, SELFPAY | PROVIDERS: PCP Internal Medicine; Visit Provider Radiology Diagnostic Radiology | DX: Z87.01 Personal history of pneumonia (recurrent) (principal) | CPT/HCPCS: 71046 ==

== ENCOUNTER 2024-05-02 15:07 | Outpatient (AMB) | payer BC, SELFPAY ==
[2024-05-02 15:08] VITALS: BP 136/68; PULSE 87; O2SAT 94; BMI 36.7
--- NOTE | 2024-05-02 15:08 | A.OFFVIS_ITS ---
Vital Signs 05/02/24 15:08 Height 5 ft Weight 188 lb BMI 36.7 BP 136/68 Blood Pressure Location Lt brachial Position Sitting Pulse 87 Pulse Source Pulse Oximeter Pulse Oximetry (%) 94 Oxygen Delivery Method Room Air Intake Visit Reasons: cough/ asthma Flight Control Specialist Required: No Soldering Machine Operator: Soldering Machine Operator offered & declined Accompanied by: Self / Same As Patient Allergies cat dander [CAT] Allergy (Unknown, Verified 05/02/24 15:14) DIFFICULTY BREATHING Medication List - Last Reconciled 05/02/24 by Lyndsey Ruiz LPN albuterol sulfate 90 mcg/actuation 1 - 2 puffs inhalation QID PRN calcium carbonate (Calcium 500) 500 mg PO DAILY flaxseed oil 1,000 mg PO DAILY fluoride (sodium) 1.1% 1 appl PO DAILY 30 days ibuprofen 400 mg PO TID PRN 90 days levothyroxine 50 mcg PO DAILY 90 days multivitamin 1 tab PO DAILY triamcinolone acetonide 0.1% 1 appl topical BID-TID umeclidinium-vilanterol 62.5-25 mcg/actuation (Anoro Ellipta) 1 inh inhalation DAILY 60 days HPI HPI cough/ asthma: Details: Janelle is a pleasant 63 year old female, former smoker, 10 pyh, quit 10 years ago with underlying asthma. She was initially referred by PCP for persistent respiratory symptoms after LLL PNA. Since completing last round of abx/prednisone as well as initiating Anoro patient reported resolution of symptoms. Unfortunately, shortly after the last visit, patient had recurrence of wheezing, chest tightness, dry cough and dyspnea. Denied chest congestion. Today she presents to review repeat CXR and RAST testing. She denies any visits to urgent care or hospitalizations related to respiratory distress since the last visit. [facility] Medical History (Updated 04/11/24 @ 11:36 by Lamar Brown NP) Osteoarthritis Surgical History Status post ablation of incompetent vein using laser History of appendectomy Family History Mother Cardiac arrest Father Poor circulation of extremity Family/Other Mental health disorder Substance use disorder Brother Prostate cancer Social History (Updated 04/11/24 @ 10:40 by Lyndsey Ruiz LPN) Housing: House Alcohol intake: current Alcohol intake frequency: a few times a week Alcohol type: other Patient Tobacco Use Status: Former Tobacco user Tobacco use type: Cigarette Cigarette Packs Per Day: 1 Years Smoked: 15 Quit 1993 e-Cigarette/Vaping Use: Never Used Second Hand Smoke Exposure: No service: No Current occupational status: retired Sexual orientation: Lesbian/Edouard/Homosexual Gender identity: Female Cognitive needs: No Hearing needs: No Vision needs: Yes Review of Systems Const Denies chills, Denies excessive sweating, Denies fever(s), Denies headache(s) and Denies night sweats Eyes Denies dry eyes, Denies irritation and Denies itchy eyes ENT Reports Normal hearing present, Denies headache(s), Denies nasal congestion, Denies nasal discharge, Denies post nasal drip and Denies sore throat Card Denies chest pain, Denies chest pain at rest, Denies chest pain with activity, Denies claudication, Denies leg edema, Denies dyspnea, Denies dyspnea on exertion, Denies orthopnea and Denies paroxysmal nocturnal dyspnea Resp Denies chest congestion, Denies excessive phlegm production, Denies pain on inspiration, Denies pain with cough, Denies dyspnea, Denies dyspnea on exertion and Denies stridor Musc Denies myalgias Neuro Reports Normal hearing present and Denies headache(s) Endo Denies excessive sweating Wing/Lymph Denies lymphadenopathy Aller/Immun Denies itchy eyes and Denies seasonal rhinorrhea Physical Exam Const General: cooperative, healthy appearing, comfortable, no acute distress, well developed and alert Nutritional Appearance: obese Orientation/consciousness: patient oriented x3 Limitations: no limitations HEENT Head: Yes normal to inspection, Yes normocephalic and Yes atraumatic Ears: hearing grossly normal bilaterally and external ears normal Eyes General: appearance normal, both eyes and all related structures Eyelids: Yes eyelids normal Sclerae: sclerae normal EOM: EOMs intact bilaterally Neck Neck: Yes normal visual inspection and Yes no lymphadenopathy Lymphatic: no lymphadenopathy noted Chest Chest palpation & inspection: normal inspection of the chest Resp Effort & Inspection: normal respiratory effort, able to speak in complete sentences, no audible wheezes, no cough, no stridor, not tachypneic, no tripod positioning and no use of accessory muscles Auscultation: clear to auscultation bilaterally Cardio Jugular venous distension: no JVD Rate: regular rate Rhythm: regular rhythm Skin Other: warm, dry General skin exam: no rashes or lesions noted Neuro General: patient oriented x3 Cranial nerves: Yes Normal hearing present Cognition (Neuro): normal cognition Gait exam (Neuro): Normal gait present Extrem General: Yes normal to inspection, Yes capillary refill normal, Yes no clubbing, cyanosis or edema and Yes no pedal edema Psych Appearance: grossly normal and well kempt Speech and movement: Normal speech and movement present and Clear speech present Affect: normal affect Attitude: cooperative Thought process: Normal thought process present Thought content: Normal thought content present Insight: Good insight present (Psych) Judgement: Good judgement present (Psych) Assessment & Plan Assessment & Plan (1) Asthma: Code(s): J45.909 - Unspecified asthma, uncomplicated Category: Medical (2) Environmental allergies: Code(s): Z91.09 - Other allergy status, other than to drugs and biological substances Category: Medical (3) History of recent pneumonia: Code(s): Z87.01 - Personal history of pneumonia (recurrent) Category: Medical Plan Reviewed repeat CXR to assess for resolution of PNA, which revealed resolution. RAST + for multiple environmental allergens including trees, grasses, weeds, cat, dog and cockroach with IgE 248. Will switch Anoro to Breo, as patient likely with persistent airway inflammation. Discussed ways to minimize allergen exposure and recommedned daily antihistamine. May consider singulair. All questions were answered and patient is in agreement of plan. Will follow up in 6-8 weeks or sooner if needed. Medications: New fluticasone furoate-vilanterol 100-25 mcg/dose (Breo Ellipta) 1 inh inhalation DAILY 60 ea 6RF Discontinued umeclidinium-vilanterol 62.5-25 mcg/actuation (Anoro Ellipta) Discontinued Reason: More recent result 1 inh inhalation DAILY 60 days 60 ea 0RF Coding Level of Care Code Est Pt Level 4 (09388) Diagnoses Asthma J45.909 Environmental allergies Z91.09 History of recent pneumonia Z87.01
--- OUTSIDE RECORDS SUMMARY | 2024-05-02 18:27 | XMS_ITS | Data Portability ---
Author Organization [facility] [address] Address [address] [place] [address] Assessment No assessment recorded. Plan of Treatment Reminders Order Date Submit Date Provider Last Modified By Organization Details Last Modified Time Details Appointments None recorded. Lab None recorded. Referral None recorded. Procedures None recorded. Surgeries None recorded. Imaging None recorded. Medication Orders cephalexin 500 mg capsule 2022 023 [facility] #[id number], [address] [place], [place], [id number], 3 10:50:32 cephalexin 500 mg capsule 2022 023 JEANCARLOS [facility] #[id number], [address] [place], [place], [id number], 3 19:35:09 Patient TargetsNo targets recorded. Patient Instructions Encounter Date Encounter Id Patient Instructions Last Modified By Organization Details Last Modified Time 08/28/2022 [id number] cellulitis: care instructions [email or web address] Not available 08/28/2022 19:34:54 Based on your [...] that are tender Thank you for using [employer] today, please don't hesitate to call or reach out to us if you have any questions or concerns. [email or web address] Not available 08/28/2022 19:34:53 09/11/2022 [id number] cellulitis: care instructions Not available 09/11/2022 10:50:22 [...] your doctor if you can take an [id number]-txvqffs medicine. Not available 09/11/2022 10:50:21 Go to [...] and Address Organization Details Recorded Time Arthritis 2555417 Active 023 PAM Carbajal - [facility] [...] Updated DateTime 3 152.4 cm 36.1 kg/m2 13051.5 9 g 0 20 /min 97 % 97 % 72 /min 97.6 [degF] 142 mm[Hg] 93 mm[Hg] Mahnaz Palomares PA [facility] 3 19:03:20 Date Recorded Systolic blood pressure Diastolic blood pressure Provider Name and Address Organization Details Last Updated DateTime 08/28/2022 140 mm[Hg] 90 mm[Hg] PAM MANCERA [address] [place] [address], [address], [place] - [employer] [facility] 08/28/2022 19:38:53 Date Recorded Body height Body mass index (BMI) Body weight Pain severity - 0-10 verbal numeric rating [Score] - Reported Oxygen saturation Oxygen saturation in Arterial blood by Pulse oximetry Heart rate Respiratory rate Body temperature Systolic blood pressure Diastolic blood pressure Provider Name and Address Organization Details Last Updated DateTime 3 152.4 cm 36.1 kg/m2 95169.5 9 g 0 97 % 97 % 70 /min 16 /min 98.1 [degF] 143 mm[Hg] 86 mm[Hg] CIERA JARAMILLO PA [facility] [facility] 3 10:18:42 Social History Question Answer Notes LastModified by Organizat ion Details LastModified Time Tobacco Smoking Status Never Smoker Mahnaz ugarte PA [facility] [facility] 08/28/2022 19:01:43 What Is Your [...] SNOMED-CT Code Diagnosis ICD10 Code Diagnosis Note [id number] [address] [address] 11/20/2018 08:49:03 11/20/2018 09:04:00 [id number] PAM MANCERA [address] [place] [address] 08/28/2022 18:49:00 08/28/2022 19:37:25 Cellulitis of lower leg 108675132 L03.119 Elevated blood-pressure reading without diagnosis of hypertension 576562690 R03.0 You blood pressure was elevated during [...] to discuss the results of your journal. [id number] Bong Mujica NP [address] [place] [address] 09/11/2022 09:58:30 09/11/2022 10:57:25 Varicose veins of lower extremity 45698382 I83.891 strongly encouraged to follow up with vascular speciality as scheduled. Cellulitis of right lower limb [id number] 9249046 L03.115 Health Concerns Section Related Observation LastModified by Organization Detai ls LastModified Time None Recorded Concern Status LastModified by Organization Details LastModified Time None Recorded Advance Directives Directive None Recorded Payers Encounter Date Sequence Insurance Name Policy Number Policy Huffman Covered Member ID Huffman Member ID Guarantor Name 11/20/2018 1 [facility] [id number] Janelle Paz Loera [id number] Janelle Loera 08/28/2022 1 [facility] [id number] Janelle Paz Loera [id number] Janelle Loera 09/11/2022 1 [facility] [id number] Janelle Paz Loera [id number] Janelle Loera Notes Date Note Type Note [...] PAM MANCERA [address] [place], [address], [place] [employer] [facility] 08/28/2022 19:39:22 3 text/html Skin Redness UCReported [...] Mujica NP [address] [place], [address], [place] PA [facility] 09/11/2022 10:55:44 OBGyn Episode No OBEpisode recorded.
== END 2024-05-02 15:30 | disposition home or self-care (01) ==
LOC: HO.HPSW 15:31
PROVIDERS: PCP Internal Medicine; Visit Provider Nurse Practitioner Family
DX: J45.909 Unspecified asthma, uncomplicated (principal); Z91.09 Other allergy status, other than to drugs and biological substances; Z87.01 Personal history of pneumonia (recurrent)
CPT/HCPCS: 99214

== ENCOUNTER 2024-06-13 10:12 | Outpatient (AMB) | payer BC, SELFPAY ==
--- NOTE | 2024-06-13 08:45 | MHC.OFFVIS ---
Vital Signs 06/13/24 10:16 Height 5 ft Weight 190 lb BMI 37.1 BP 110/68 Blood Pressure Location Lt brachial Position Sitting Pulse 75 Pulse Source Pulse Oximeter Pulse Oximetry (%) 100 Oxygen Delivery Method Room Air Intake Visit Reasons: cough/ asthma Sleeper Cutter Required: No Senior Reliability Engineer: Senior Reliability Engineer offered & declined Accompanied by: Self / Same As Patient Allergies cat dander [CAT] Allergy (Unknown, Verified 06/13/24 10:21) DIFFICULTY BREATHING Medication List - Last Reconciled 06/13/24 by Lyndsey Ruiz LPN albuterol sulfate 90 mcg/actuation 1 - 2 puffs inhalation QID PRN calcium carbonate (Calcium 500) 500 mg PO DAILY flaxseed oil 1,000 mg PO DAILY fluoride (sodium) 1.1% 1 appl PO DAILY 30 days fluticasone furoate-vilanterol 100-25 mcg/dose (Breo Ellipta) 1 inh inhalation DAILY fluticasone propion-salmeterol 115-21 mcg/actuation (Advair HFA) 2 puffs inhalation Q12H ibuprofen 400 mg PO TID PRN 90 days levothyroxine 50 mcg PO DAILY 90 days multivitamin 1 tab PO DAILY triamcinolone acetonide 0.1% 1 appl topical BID-TID HPI HPI cough/ asthma: Details: Janelle is a pleasant 63 year old female, former smoker, 10 pyh, quit 10 years ago with underlying asthma. She has been well controlled on Advair and Xzyal. She denies any dyspnea, wheezing or chest tightness. She does endorse post nasal drip and intermittent productive cough, unknown sputum color without associated chest congestion. She denies any visits to urgent care or hospitalizations related to respiratory distress since the last visit. [facility] Medical History (Updated 05/28/24 @ 10:43 by Bertha Ramírez MD) Osteoarthritis Surgical History Status post ablation of incompetent vein using laser History of appendectomy Family History Mother Cardiac arrest Father Poor circulation of extremity Family/Other Mental health disorder Substance use disorder Brother Prostate cancer Social History (Updated 04/11/24 @ 10:40 by Lyndsey Ruiz LPN) Housing: House Alcohol intake: current Alcohol intake frequency: a few times a week Alcohol type: other Patient Tobacco Use Status: Former Tobacco user Tobacco use type: Cigarette Cigarette Packs Per Day: 1 Years Smoked: 15 Quit 1993 e-Cigarette/Vaping Use: Never Used Second Hand Smoke Exposure: No service: No Current occupational status: retired Sexual orientation: Lesbian/Edouard/Homosexual Gender identity: Female Cognitive needs: No Hearing needs: No Vision needs: Yes Review of Systems Const Denies chills, Denies excessive sweating, Denies fever(s), Denies headache(s) and Denies night sweats Eyes Denies dry eyes, Denies irritation and Denies itchy eyes ENT Reports Normal hearing present, Denies headache(s), Denies nasal congestion, Denies nasal discharge and Denies sore throat Card Denies chest pain, Denies chest pain at rest, Denies chest pain with activity, Denies claudication, Denies leg edema, Denies dyspnea, Denies dyspnea on exertion, Denies orthopnea and Denies paroxysmal nocturnal dyspnea Resp Denies chest congestion, Denies excessive phlegm production, Denies pain on inspiration, Denies pain with cough, Denies dyspnea, Denies dyspnea on exertion and Denies stridor Musc Denies myalgias Neuro Reports Normal hearing present and Denies headache(s) Endo Denies excessive sweating Wing/Lymph Denies lymphadenopathy Aller/Immun Denies itchy eyes and Denies seasonal rhinorrhea Physical Exam Vital Signs: Last Vital Signs Pulse 75 06/13/24 10:16 BP 110/68 06/13/24 10:16 Pulse Ox 100 06/13/24 10:16 Oxygen Delivery Method Room Air 06/13/24 10:16 BMI result Body Mass Index 37.1 Const General: cooperative, healthy appearing, comfortable, no acute distress, well developed and alert Nutritional Appearance: obese Orientation/consciousness: patient oriented x3 Limitations: no limitations HEENT Head: Yes normal to inspection, Yes normocephalic and Yes atraumatic Ears: hearing grossly normal bilaterally and external ears normal Eyes General: appearance normal, both eyes and all related structures Eyelids: Yes eyelids normal Sclerae: sclerae normal EOM: EOMs intact bilaterally Neck Neck: Yes normal visual inspection and Yes no lymphadenopathy Lymphatic: no lymphadenopathy noted Chest Chest palpation & inspection: normal inspection of the chest Resp Effort & Inspection: normal respiratory effort, able to speak in complete sentences, no audible wheezes, no cough, no stridor, not tachypneic, no tripod positioning and no use of accessory muscles Auscultation: clear to auscultation bilaterally Cardio Jugular venous distension: no JVD Rate: regular rate Rhythm: regular rhythm Skin Other: warm, dry General skin exam: no rashes or lesions noted Neuro General: patient oriented x3 Cranial nerves: Yes Normal hearing present Cognition (Neuro): normal cognition Gait exam (Neuro): Normal gait present Extrem General: Yes normal to inspection, Yes capillary refill normal, Yes no clubbing, cyanosis or edema and Yes no pedal edema Psych Appearance: grossly normal and well kempt Speech and movement: Normal speech and movement present and Clear speech present Affect: normal affect Attitude: cooperative Thought process: Normal thought process present Thought content: Normal thought content present Insight: Good insight present (Psych) Judgement: Good judgement present (Psych) Assessment & Plan Assessment & Plan (1) Asthma: Code(s): J45.909 - Unspecified asthma, uncomplicated Category: Medical (2) Environmental allergies: Code(s): Z91.09 - Other allergy status, other than to drugs and biological substances Category: Medical Plan At this time, Janelle reports good control of respiratory symptoms on current regimen, advised to continue. Recommended trial of Flonase for post nasal drip and intermittent productive cough. She is aware to call if symptoms do not improve or worsen. All questions were answered and patient is in agreement of plan. Will follow up in 3 months or sooner if needed. Coding Level of Care Code Est Pt Level 4 (48413) Diagnoses Asthma J45.909 Environmental allergies Z91.09
[2024-06-13 10:16] VITALS: BP 110/68; PULSE 75; O2SAT 100; BMI 37.1
--- OUTSIDE RECORDS SUMMARY | 2024-06-13 11:42 | XMS_ITS | Data Portability ---
Author Organization [facility] [address] Address [address] [place] [address] Assessment No assessment recorded. Plan of Treatment Reminders Order Date Submit Date Provider Last Modified By Organization Details Last Modified Time Details Appointments None recorded. Lab None recorded. Referral None recorded. Procedures None recorded. Surgeries None recorded. Imaging None recorded. Medication Orders cephalexin 500 mg capsule 2022 023 [facility] #[id number], [address] [place], [place], [id number], 3 10:50:32 cephalexin 500 mg capsule 2022 023 [facility]LOS [facility] #[id number], [address] [place], [place], [id number], 3 19:35:09 Patient TargetsNo targets recorded. Patient Instructions Encounter Date Encounter Id Patient Instructions Last Modified By Organization Details Last Modified Time 08/28/2022 [id number] cellulitis: care instructions [email or web address] Not available 08/28/2022 19:34:54 Based on your [...] that are tender Thank you for using [facility] today, please don't hesitate to call or reach out to us if you have any questions or concerns. [email or web address] Not available 08/28/2022 19:34:53 09/11/2022 [id number] cellulitis: care instructions Not available 09/11/2022 10:50:22 [...] your doctor if you can take an [id number] medicine. Not available 09/11/2022 10:50:21 Go to [...] and Address Organization Details Recorded Time Arthritis 3816418 Active 023 PAM Carbajal - [facility] [...] Updated DateTime 3 152.4 cm 36.1 kg/m2 32391.5 9 g 0 20 /min 97 % 97 % 72 /min 97.6 [degF] 142 mm[Hg] 93 mm[Hg] Mahnaz Palomares PA [facility] 3 19:03:20 Date Recorded Systolic blood pressure Diastolic blood pressure Provider Name and Address Organization Details Last Updated DateTime 08/28/2022 140 mm[Hg] 90 mm[Hg] PAM MANCERA [address] [place] [address], [address], [place] - [employer] [facility] 08/28/2022 19:38:53 Date Recorded Body height Body mass index (BMI) Body weight Pain severity - 0-10 verbal numeric rating [Score] - Reported Oxygen saturation Oxygen saturation in Arterial blood by Pulse oximetry Heart rate Respiratory rate Body temperature Systolic blood pressure Diastolic blood pressure Provider Name and Address Organization Details Last Updated DateTime 3 152.4 cm 36.1 kg/m2 99339.5 9 g 0 97 % 97 % 70 /min 16 /min 98.1 [degF] 143 mm[Hg] 86 mm[Hg] CIERA JARAMILLO PA [facility] 3 10:18:42 Social History Question Answer Notes LastModified by Organizat ion Details LastModified Time Tobacco Smoking Status Never Smoker Mahnaz ugarte PA [facility] 08/28/2022 19:01:43 What Is Your [...] SNOMED-CT Code Diagnosis ICD10 Code Diagnosis Note [id number] [address] [address] 11/20/2018 08:49:03 11/20/2018 09:04:00 [id number] PAM MANCERA [address] [place] [address] 08/28/2022 18:49:00 08/28/2022 19:37:25 Cellulitis of lower leg 846070134 L03.119 Elevated blood-pressure reading without diagnosis of hypertension 986165143 R03.0 You blood pressure was elevated during [...] to discuss the results of your journal. [id number] Bong Mujica NP [address] [place] [address] 09/11/2022 09:58:30 09/11/2022 10:57:25 Varicose veins of lower extremity 55347137 I83.891 strongly encouraged to follow up with vascular speciality as scheduled. Cellulitis of right lower limb [id number] 2736691 L03.115 Health Concerns Section Related Observation LastModified by Organization Detai ls LastModified Time None Recorded Concern Status LastModified by Organization Details LastModified Time None Recorded Advance Directives Directive None Recorded Payers Encounter Date Sequence Insurance Name Policy Number Policy Huffman Covered Member ID Huffman Member ID Guarantor Name 11/20/2018 1 [facility] [id number] Janelle Paz Loera [id number] Janelle Loera 08/28/2022 1 [facility] [id number] Janelle Paz Loera [id number] Janelle Loera 09/11/2022 1 [facility] [id number] Janelle Paz Loera [id number] Janelle Loera Notes Date Note Type Note [...] PAM MANCERA [address] [place], [address], [place] [employer] 08/28/2022 19:39:22 3 text/html Skin Redness UCReported [...] Mujica NP [address] [place], [address], [place] [facility] 09/11/2022 10:55:44 OBGyn Episode No OBEpisode recorded.
--- OUTSIDE RECORDS SUMMARY | 2024-06-13 11:42 | XMS_ITS | Continuity of Care Document ---
Author Organization [facility] Address [address] [place] [address] [place] [address] Phone Care Team Providers Care Matchbook Maker Name Role Phone Deandre HARDY, RVT, RPVI, Brett Unavailable U navailable Allergies, Adverse Reactions, Alerts Substance Reaction Status Criticality No Known Allergies Active No Inform ation Medications Medication Instructions Dosage Effective Dates (start - stop) Status Comments TRIAMCINOLONE (unknown strength) Not Available - Active ibuprofen 400 mg tablet - Active Procedures Procedure Date Office/Outpt E&M Established 25 Mins- CT & [place] Duplex Scan-extrem Veins; Comp- CT & [place] Office/Outpt E&M Established 15 Mins- CT & [place] Duplex Scan-extrem Veins; Comp- CT & [place] Duplex Scan-extrem Veins; Uni/ Inj Scleros Solut; Mx Veins 1 4 Ultrason Guidan Needle Bx-rad 4 Duplex Scan-extrem Veins; Uni/ 24 Inj Scleros Solut; Mx Veins 1 4 Ultrason Guidan Needle Bx-rad 4 Office/Outpt E&M Established 15 Mins Feb Duplex Scan-extrem Veins; Comp Duplex Scan-extrem Veins; Uni/ 23 Varithena, Single Truncal Vein Endovenous Laser, 1st Vein Endovenous laser vein addon Phleb Veins - Extrem - To 20 Inj Scleros Solut; Mx Veins 1 3 Duplex Scan-extrem Veins; Uni/ Endovenous Laser, 1st Vein Endovenous Laser, 1st Vein Endovenous laser vein addon Offic/outpt E&m Estab 5 Min Trial - Tele medicine Office/Outpt E&M Established 15 Mins Jul Duplex Scan-extrem Veins; Comp Office/Outpt E&M Established 15 Mins June Advance Directives Directive Yes / No Effective Date File Name Other Directive No 05/30/2024 N/A WARNING:The information contained in this section is historical and is provided for information only and does not constitute a legal document or any assurance that the information is still accurate. Please verify the information with the alves of the legal document before using it for clinical purposes. Encounters Encounter Description Practice Location Reason(s) For Visit Diagnoses Date Provider Providers Copied on Encounter Office/Outpt E&M Established 25 Mins- CT & [place] [facility], [address] [place] [address] Dr Kline 1000[facility] Jerm[place] Godoy [place], [id number], tel:[phone] [facility] Venous insufficienc y (chronic) (peripheral) 5 Deandre HARDY RVT, ANCELMO West. [address] [place] [address], [id number], [place]. tel:[phone] Referring Provider: Bertha Zepeda MD, [address] [place] [address] , [address] D/B/A: nora [facility], [place], [address]. tel:[phone] [facility], [address] [place] [address] Dr Kline 1000Jermaine peacock [place], [id number], tel:[phone] [facility] Chronic venous hypertension (idiopathic) with other complication s of bilateral lower extremity 5 Deandre HARDY RVT, ANCELMO West. [address] [place] [address] [place], [id number], [place]. tel:[phone] Referring Provider: Bertha Zepeda MD, 2 [facility] , [address] [place] [address] D/B/A: [place], [address]. tel:[phone] Office/Outpt E&M Established 15 Mins- CT & [place] [facility], [address] [place] [address] [address]Suite Jermaine Godoy [place], [id number], [place] tel:[phone] [facility] [place] Venous insufficienc y (chronic) (peripheral) 4 Deandre HARDY RVT, ANCELMO West. [address] [place] [address], [place], [place], [id number], [place]. tel:[phone] Referring Provider: Bertha Zepeda MD, 2 [facility] , [address] D/B/A: [place], [address]. tel:[phone] [facility], [address] [place] [address] [address]Suite Jermaine Godoy [place], [id number], [place] tel:[phone] [facility] - [place] [facility] Encounter for follow-up examination after completed treatment for conditions other than malignant neVaricose veins of bilateral lower extremities with pain 4 Deandre HARDY RVT, ANCELMO West. [address] [place] [address], [place], [place], [id number], [place]. tel:[phone] Referring Provider: Bertha Zepeda MD, 2 [facility] , [address] [place] [address] D/B/A: [place], [address]. tel:[phone] [facility], [address] [place] [address] [address] [address]SuJermaine peacock [place], [id number], [place] tel:[phone] [facility] [place] Encounter for follow-up examination after completed treatment for conditions other than malignant neVaricose veins of left lower extremity with pain Apr- 4 Deandre HARDY RVT, ANCELMO West. [address] [place] [address], Suite [facility], [facility] [place], [id number], [place]. tel:[phone] Referring Provider: Bertha Zepeda MD, 2 [facility] DrJacques, [address] D/B/A: [place], [address]. tel:[phone] [facility], [address] [place] [address] [address] Jermaine Godoy [place], [id number], [place] tel:[phone] [facility] [place] Chronic venous hypertension (idiopathic) with inflammation of left lower extremity 4 Deandre HARDY RVT, ANCELMO West. [address] [place] [address] Suite [facility] [place], [id number], [place]. tel:[phone] Referring Provider: Bertha Zepeda MD, 2 [facility] DrJacques, [address] D/B/A: [place], [address]. tel:[phone] [facility], [address] [place] [address] [address]Suite Jermaine Godoy [place], [id number], [place] tel:[phone] [facility] [place] Encounter for follow-up examination after completed treatment for conditions other than malignant nePain in right leg 4 Deandre HARDY RVT, ANCELMO West. [address] [place] [address], Suite [facility] [place], [id number], [place]. tel:[phone] Referring Provider: Bertha Zepeda MD, 2 [facility] DrJacques, [address] D/B/A: [place], [address]. tel:[phone] [facility], [address] [place] [address] [address] [address]Jermaine [place], [id number], [place] tel:[phone] [facility] [place] Varicose veins of right lower extremity with other complication s 4 Deandre HARDY RVT, RPVI Robert. [address] [place] [address], Suite [facility], [place], [id number], [place]. tel:[phone] Referring Provider: Bertha Zepeda MD, 2 [facility] DrJacques, [address] [place] D/B/A: [place], [address]. tel:[phone] Office/Outpt E&M Established 15 Mins [facility], [address] [place] [address] [address] [address]Jermaine [place], [id number], [place] tel:[phone] CVR - [facility] Venous insufficienc y (chronic) (peripheral) 4 Deandre HARDY, BEN, VIOLET West. [address] [facility], [address], [place], [id number], [place]. tel:[phone] Referring Provider: Bertha Zepeda MD, 2 [facility] , [address] [place] [address] D/B/A: [place], [address]. tel:[phone] [facility], [address] [place] [address] [address] [address]Jermaine [place], [id number], [place] tel:[phone] [facility] Chronic venous hypertension (idiopathic) with other complication s of bilateral lower extremity 4 Deandre HARDY, BEN, ANCELMO West. [address] [facility], [address], [place], [id number], [place]. tel:[phone] Referring Provider: Bertha Zepeda MD, 2 [facility] DrJacques, [address] [place] D/B/[place]: [place], [address]. tel:[phone] [facility], [address] [place] [address] [address] [address]Jermaine [place], [id number], [place] tel:[phone] CVR - [facility] Encounter for follow-up examination after completed treatment for conditions other than malignant neChronic venous hypertension (idiopathic) with other complication s of right lower extremity 3 Shamir HARDY FACS CHRISTIANT RPVIOLET Bravo. [address] [facility], [address], [place], [address], [place]. tel:[phone] Referring Provider: Bertha Zepeda MD, [address], [address] [place] D/B/A: [place], [address]. tel:[phone] [facility], [address] [place] [address] Dr [address] [address]Jermaine [place], [id number], [place] tel:[phone] [facility] [place] Varicose veins of right lower extremity with other complication s 3 Shamir HARDY FACS T ANCELMO Bravo. [address] [facility], [address], [place], [address], [place]. tel:[phone] Referring Provider: Bertha Zepeda MD, 2 [facility] DrJacques, [address] [place] D/B/A: [place], [address]. tel:[phone] [facility], [address] [place] [address] Dr [address], [place], [id number], [place] tel:[phone] [facility] [place] Varicose veins of right lower extremity with other complication s 3 Shamir HARDY FACS T ANCELMO Bravo. [address] [facility], [address], [place], [address], [place]. tel:[phone] Referring Provider: Bertha Zepeda MD, 2 [facility] DrJacques, [address] [place] D/B/A: [place], [address]. tel:[phone] [facility], [address] [place] [address] Dr [address], [place], [id number], [place] tel:[phone] [facility] [place] Varicose veins of left lower extremity with other complication s 3 Roxann Jaramillo. [address] [facility], [address], [place], [place], [id number], [place]. tel:[phone] Referring Provider: Bertha Zepeda MD, 2 [facility] DrJacques, [address] [place] D/B/A: [place], [address]. tel:[phone] [facility], [address] [place] [address] Dr [address] 1000Jermaine [place], [id number], [place] tel:[phone] [facility] [place] Encounter for follow-up examination after completed treatment for conditions other than malignant neVaricose veins of left lower extremity with pain 3 Shamir HARDY FACS T ANCELMO Bravo. [address] [facility], [address], [place], [address], [place]. tel:[phone] Referring Provider: Bertha Zepeda MD, 2 [facility] DrJacques, [address] [place] [address] D/B/A: [place], [address]. tel:[phone] [facility], [address] [place] [address] [address] 1000Jermaine [place], [id number], [place] tel:[phone] [facility] Varicose veins of left lower extremity with other complication s 3 Shamir HARDY FACS T ANCELMO Bravo. [address] [facility], [address], [place], [address], [place]. tel:[phone] Referring Provider: Bertha Zepeda MD, 2 [facility] DrJacques, [address] [place] [address] D/B/A: [place], [address]. tel:[phone] [facility], [address] [place] [address] [address] 1000Jermaine [place], [id number], [place] tel:[phone] [facility] Varicose veins of left lower extremity with other complication s 3 Shamir HARDY FACS T ANCELMO Bravo. [address] [facility], [address], [place], [address], [place]. tel:[phone] Referring Provider: Bertha Zepeda MD, 2 [facility] DrJacques, [address] [place] D/B/A: [place], [address]. tel:[phone] Offic/outpt E&m Estab 5 Min Trial - Telemedicine [facility], [address] [place] [address] [address] [address]Jermaine [place], [id number], [place] tel:[phone] [facility] Varicose veins of left lower extremities with pain 3 Roxann Jaramillo. [address] [facility], Suite [facility], [facility] [place], [id number], [place]. tel:[phone] Referring Provider: Bertha Zepeda MD, 2 [facility] , [address] [place] D/B/A: [place], [address]. tel:[phone] Office/Outpt E&M Established 15 Mins [facility], [address] [place] [address] Dr Kline 1000[address] 1000Jermaine [place], [id number], [place] tel:[phone] [facility] Varicose veins of left lower extremities with painPain in right leg 3 Shamir HARDY FACS RVT ANCELMO Bravo. [address] [address], [place], [address], [place]. tel:[phone] Referring Provider: Bertha Zepeda MD, 2 [facility] , [address] [place] D/B/A: [place], [address]. tel:[phone] [facility], [address] [place] [address] [address] [address]Jermaine [place], [id number], [place] tel:[phone] [facility] Venous insufficienc y (chronic) (peripheral) Pain in right legPain in left leg 3 Shamir HARDY FACS RVT ANCELMO Bravo. [address] [facility], Suite [facility] [place], [address], [place]. tel:[phone] Referring Provider: Bertha Zepeda MD, 2 [facility] , [address] [place] [address] D/B/A: [place], [address]. tel:[phone] Office/Outpt E&M Established 15 Mins [facility], [address] [facility] [place] [address], [place], [id number], [place] tel:[phone] [facility] Body mass index (BMI) 37.0-37.9, adultVenous insufficienc y (chronic) (peripheral) Shamir HARDY FACS RVT RPVIOLET Bravo. [address] [facility] [address], [place], [address], [place]. tel:[phone] Referring Provider: Bertha Zepeda MD, [address] [place] [address] DrJacques, [address] [place] D/B/A: nora Gillis In [facility], [place], [address]. tel:[phone] Family History Family Member Type Diagnosis Age At Onset No Information Payers Payer name Insurance type Covered libertarian ID Authoriza titanya(s) [facility] [id number] Social History Type Description Quantity Date Captured [...] No Information Instructions Date Instruction Additional Infor mation Compression stocking usage as conservative measure Related to Venous insufficiency (chronic) (peripheral) Patient [...]
== END 2024-06-13 10:44 | disposition home or self-care (01) ==
LOC: HO.HPSW 10:13
PROVIDERS: PCP Internal Medicine; Visit Provider Nurse Practitioner Family
DX: J45.909 Unspecified asthma, uncomplicated (principal); Z91.09 Other allergy status, other than to drugs and biological substances
CPT/HCPCS: 99214

== ENCOUNTER 2024-09-27 08:27 | Outpatient (AMB) | payer BC, SELFPAY ==
--- NOTE | 2024-09-27 08:44 | MHC.PC.OV ---
Vital Signs 09/27/24 08:45 Height 5 ft Weight 190 lb 2 oz BMI 37.1 BP 118/78 Blood Pressure Location Lt brachial Position Sitting Pulse 69 Pulse Source Pulse Oximeter Pulse Oximetry (%) 97 Oxygen Delivery Method Room Air Intake Visit Reasons: annual Hand Tacker Required: No Accompanied by: Self / Same As Patient Allergies cat dander (CAT) Allergy (Unknown, Verified 09/27/24 09:02) DIFFICULTY BREATHING Medication List - Last Reconciled 09/27/24 by Bertha Ramírez MD albuterol sulfate 90 mcg/actuation 1 - 2 puffs inhalation QID PRN calcium carbonate (Calcium 500) 500 mg PO DAILY flaxseed oil 1,000 mg PO DAILY fluoride (sodium) 1.1% 1 appl PO DAILY 30 days fluticasone propion-salmeterol 115-21 mcg/actuation (Advair HFA) 2 puffs inhalation Q12H ibuprofen 400 mg PO TID PRN 90 days levothyroxine 50 mcg PO DAILY 90 days multivitamin 1 tab PO DAILY triamcinolone acetonide 0.1% 1 appl topical BID-TID Tobacco use date assessed: 09/27/24 Fall risk assessment: No Falls in past year Last assessed Fall Risk: 09/27/24 Dental Screening Dental Screen Date: 09/27/24 Did you have a dental visit in the last 12 months?: Yes Did you have a dental problem in the last 6 months where you did not have access to dental care?: No Was dental information given to patient?: Patient has dentist HPI HPI Comments History of Present Illness Details The patient is a 63-year-old female presenting for a physical examination and review of preventative care measures. She received her pneumonia vaccine last month and her Tdap vaccine in 2018, with the next Tdap due in 2028. Her last mammogram was conducted in February, and her bone density screening in 2022 showed normal results, with a recommendation for another screening this year. In 2021, she had a Pap smear which was normal with HPV negative results, and a Cologuard test for colon cancer screening, with the next test due this year. [facility] Medical History Osteoarthritis Surgical History Status post ablation of incompetent vein using laser History of appendectomy Family History Mother Cardiac arrest Father Poor circulation of extremity Family/Other Mental health disorder Substance use disorder Brother Prostate cancer Social History Housing: House Alcohol intake: current Alcohol intake frequency: a few times a week Alcohol type: other Patient Tobacco Use Status: Former Tobacco user Tobacco use type: Cigarette Cigarette Packs Per Day: 1 Years Smoked: 15 Quit 1993 e-Cigarette/Vaping Use: Never Used Second Hand Smoke Exposure: No service: No Current occupational status: retired Sexual orientation: Lesbian/Edouard/Homosexual Gender identity: Female Cognitive needs: No Hearing needs: No Vision needs: Yes Questionnaire PHQ-9 Over the last 2 weeks, how often have you been bothered by any of the following problems? 1. Little interest or pleasure in doing things: not at all 2. Feeling down, depressed, or hopeless: not at all 3. Trouble falling or staying asleep, or sleeping too much: not at all 4. Feeling tired or having little energy: not at all 5. Poor appetite or overeating: not at all 6. Feeling bad about yourself - or that you are a failure or have let yourself or your family down: not at all 7. Trouble concentrating on things, such as reading the newspaper or watching television: not at all 8. Moving or speaking so slowly that other people could have noticed. Or the opposite - being so fidgety or restless that you have been moving around a lot more than usual: not at all 9. Thoughts that you would be better off or of hurting yourself in some way: not at all Total score: 0 Depression Screening Interpretation: Negative Depression Screening Done: Yes 91702 - PHQ-9 Billing: Yes Source: Developed by Drs. Brett Neville, Ava Dempsey, Víctor Ca and colleagues, with an educational shannan from [employer]. Thrive Questionnaire Date Thrive assessed: 09/27/24 I am a: Patient What is your living situation today?: I have a steady place to live Within the past 12 months, did the food you bought not last and you didn't have the money to get more?: Never true Within the past 12 months, did you worry whether your food would run out before you got money to buy more?: Never true Do you have trouble paying for medicines?: No Do you have trouble getting transportation to medical appointments?: No Do you have trouble paying your heating and electricity bill?: No Do you have trouble taking care of your child, family member or friend?: No Do you have trouble with day-to-day activities such as bathing, preparing meals, shopping, managing finances, etc.?: No Are you currently unemployed and looking for a job?: No Are you interested in more education?: No Please select the resources that you would like help with: None Currently or been in a relationship where the following occur: No concerns reported THRIVE Score: 0 AUDIT C Alcohol Use Questionnaire (AUDIT-C) 1. How often do you have a drink containing alcohol?: Monthly or less 2. How many drinks containing alcohol do you have on a typical day when you are drinking?: 1 or 2 3. How often do you have six or more drinks on one occasion?: Never Total Score: 1 Score Reviewed/Action Taken: No SUN-7 AMB Questionnaire SUN-7 Date SUN - 7 assessed: 09/27/24 Feeling nervous, anxious, or on edge: 0 = Not at all Not being able to stop or control worryin = Not at all Worrying too much about different things: 0 = Not at all Trouble relaxin = Not at all Being so restless that it is hard to sit still: 0 = Not at all Becoming easily annoyed or irritable: 0 = Not at all Feeling afraid as if something awful might happen: 0 = Not at all Total SUN-7 score (0-4 normal; 5-9 mild; 10-14 moderate; 15-21 severe): 0 Source: Developed by Drs. Brett Neville, Ava Dempsey, Víctor Ca and colleagues, with an educational shannan from [employer]. SUN-7 Assessment Billing SUN-7 Assessment Tool: SUN-7 Assessment 04685 Review of Systems Const All systems reviewed & are unremarkable except as noted in HPI and below Card Denies chest pain at rest, Denies chest pain with activity, Denies edema, Denies irregular heart rhythm, Denies claudication, Denies dyspnea, Denies dyspnea on exertion, Denies orthopnea, Denies paroxysmal nocturnal dyspnea and Denies slow heart rate Resp Denies cough, Denies dyspnea and Denies dyspnea on exertion GI Denies abdominal pain, Denies change in bowel habits, Denies excessive flatus, Denies nausea and Denies vomiting Denies urinary incontinence, Denies urinary hesitancy and Denies urinary urgency Musc Denies abnormal gait, Denies atrophy, Denies deformity and Denies limited range of motion Skin/Breast Denies bleeding lesions, Denies changing lesions and Denies rash Neuro Denies abnormal gait, Denies behavioral changes and Denies lack of coordination Psych Denies behavioral changes Physical exam (Primary Care) Vital Signs: Last Vital Signs Pulse 69 09/27/24 08:45 BP 118/78 09/27/24 08:45 Pulse Ox 97 09/27/24 08:45 Oxygen Delivery Method Room Air 09/27/24 08:45 BMI result Body Mass Index 37.1 BMI Assessment/Plan discussion: High BMI High, discussed plan: lifestyle, weight reduction, dietary and physical activity Tobacco/Smoking Status: Tobacco use Status Tobacco use date assessed 09/27/24 09/27/24 08:48 Patient Tobacco Use Status Former Tobacco user 09/27/24 08:48 Tobacco use type Cigarette 09/27/24 08:48 e-Cigarette/Vaping Use Never Used 09/27/24 08:48 PHQ-9: PHQ-9 Score PHQ-9: Total score 0 09/27/24 08:48 Depression Screening Interpretation: Negative Thrive Assessment: Date of Thrive Assessment Date Thrive assessed 09/27/24 09/27/24 08:48 Currently or been in a relationship where the following occur: No concerns reported [facility] Head: Yes normal to inspection, Yes normocephalic and Yes atraumatic Ears: external ears normal Eyes General: appearance normal, both eyes and all related structures Eyelids: Yes eyelids normal Conjunctivae: conjunctivae normal Neck Neck: Yes normal visual inspection and Yes supple Resp Effort & Inspection: normal respiratory effort Auscultation: clear to auscultation bilaterally Cardio Jugular venous distension: no JVD Rate: regular rate Rhythm: regular rhythm Heart sounds: S1 normal heart sound present and S2 normal heart sound present GI Inspection: Yes normal to inspection Palpation (GI): Soft to palpation and nontender Auscultation: normal bowel sounds Skin General skin exam: no rashes or lesions noted Neuro General: no focal motor deficits Extrem General: Yes full ROM Psych Appearance: grossly normal Coding Level of Care Code Est Pt Prev Care 40-64y(47819) Diagnoses Physical exam Z00.00 Additional Codes SUN-7 Assessment Billing - SUN-7 Assessment Tool: SUN-7 Assessment 79232 ([id number]) PHQ-9 - 91239 - PHQ-9 Billing: Yes ([id number]) Time Spent (min) 30 Assessment & Plan Assessment & Plan (1) Physical exam: Code(s): Z00.00 - Encounter for general adult medical examination without abnormal findings Category: Medical Plan The patient should continue with her preventative care schedule, including the next Tdap vaccine in 2028. She is advised to undergo a bone density screening this year and to continue regular mammograms and Pap smears as per guidelines. The next Cologuard test is due this year to continue monitoring for colon cancer. Patient was informed and verbally consented to the use of an ambient scribe for clinic note documentation during this visit. Orders: Orders XR DEXA axial skeleton Today Z78.0 - Asymptomatic menopausal state Lipid Panel Today E78.5 - Hyperlipidemia, unspecified Thyroid Stimulating Hormone Today E06.3 - Autoimmune thyroiditis Comprehensive [place]. Panel Fast Today Z00.00 - Encounter for general adult medical examination without abnormal findings Referrals Cologuard Test Z12.11 - Encounter for screening for malignant neoplasm of colon, Z12.12 - Encounter for screening for malignant neoplasm of rectum
[2024-09-27 08:45] VITALS: BP 118/78; PULSE 69; O2SAT 97; BMI 37.1
== END 2024-09-27 09:34 | disposition home or self-care (01) ==
LOC: HO.HMCH 08:27
PROVIDERS: PCP Internal Medicine; Visit Provider Internal Medicine
DX: Z00.00 Encounter for general adult medical examination without abnormal findings (principal)

== ENCOUNTER → 2024-09-27 08:27 | Outpatient (BNVA) | payer BC, SELFPAY | PROVIDERS: PCP Internal Medicine; Visit Provider Internal Medicine | DX: Z00.00 Encounter for general adult medical examination without abnormal findings (principal); Z13.31 Encounter for screening for depression; Z13.39 Encounter for screening examination for other mental health and behavioral disorders | CPT/HCPCS: 96127 ==

== ENCOUNTER 2024-11-01 11:02 | Outpatient (AMB) | payer MEDICARE, SELFPAY ==
[2024-11-01 11:23] VITALS: BP 124/70; PULSE 72; TEMP 36.8; O2SAT 97; BMI 37.3
--- NOTE | 2024-11-01 11:23 | MHC.OFFWIV ---
Intake Vital Signs 11/01/24 11:23 Height 5 ft Weight 191 lb BMI 37.3 BP 124/70 Blood Pressure Location Rt brachial Position Sitting Pulse 72 Pulse Source Pulse Oximeter Temp 98.3 F Temp Source Oral Pulse Oximetry (%) 97 Oxygen Delivery Method Room Air Intake Visit Reasons: EP-lt had mid finger cut Intake Note: pt presents with slow healing wound with redness and swelling on left middle finger s/p injury a few weeks ago Patient Tobacco Use Status: Former Tobacco user Allergies cat dander (CAT) Allergy (Unknown, Verified 11/01/24 11:24) DIFFICULTY BREATHING Do you need a note to return to daycare/school/sports/work: No HPI HPI Comments History of Present Illness Details History of Present Illness - The patient is a 63-year-old female presenting with a suspected infection of the left middle finger. - The issue began a couple of weeks ago with a small cut on the left middle finger at tip. - The patient reports repeated trauma to the area, causing the scab to break and leading to redness, swelling, and tenderness. - The patient denies significant pain but notes the area is tender and warm to touch. - There is no history of MRSA infection. Physical Exam General: Cooperative, healthy appearing, comfortable, no acute distress and well developed Orientation: Patient oriented x3 Limitations: No limitations Head: Normal to inspection Ears: Hearing grossly normal bilaterally Nose: Normal External nose present Face and sinus: Normal facial exam Eyes: Appearance normal, both eyes and all related structures Neck: Normal visual inspection and Yes full ROM Respiratory: Normal respiratory effort and able to speak in complete sentences. Skin: as below Neuro: Patient oriented x3 Extremities: small circular area of erythema, warmth, slight fluctuance and tenderness, not affecting the nail, on the left middle finger at the volar between the nail and the DIP, has central scab. no TTP DIP joint, full ROM and NVI finger. Normal to inspection otherwise. [facility] Medical History Osteoarthritis Surgical History Status post ablation of incompetent vein using laser History of appendectomy Family History Mother Cardiac arrest Father Poor circulation of extremity Family/Other Mental health disorder Substance use disorder Brother Prostate cancer Social History Housing: House Alcohol intake: current Alcohol intake frequency: a few times a week Alcohol type: other Patient Tobacco Use Status: Former Tobacco user Tobacco use type: Cigarette Cigarette Packs Per Day: 1 Years Smoked: 15 Quit 1993 e-Cigarette/Vaping Use: Never Used Second Hand Smoke Exposure: No service: No Current occupational status: retired Sexual orientation: Lesbian/Edouard/Homosexual Gender identity: Female Cognitive needs: No Hearing needs: No Vision needs: Yes Review of Systems Const All systems reviewed & are unremarkable except as noted in HPI and below Physical Exam Vital Signs: Last Vital Signs Temp 98.3 F 11/01/24 11:23 Pulse 72 11/01/24 11:23 BP 124/70 11/01/24 11:23 Pulse Ox 97 11/01/24 11:23 Oxygen Delivery Method Room Air 11/01/24 11:23 BMI result Body Mass Index 37.3 Assessment & Plan Assessment & Plan (1) Cellulitis and abscess of hand: Code(s): L03.119 - Cellulitis of unspecified part of limb; L02.519 - Cutaneous abscess of unspecified hand Plan: Patient was informed and verbally consented to the use of an ambient scribe for clinic note documentation during this visit. Cellulitis Of The Left Middle Finger with very small abscess. - Initiate treatment with Keflex (cephalexin) to be taken every six hours for one week. - Recommend soaking the finger in Epsom salt and water to aid in drainage. - Monitor for improvement over the next few days; if no improvement, may need Doxycyline, follow up here or with PCP. Medications: New cephalexin 500 mg PO Q6H 28 caps 0RF Coding Level of Care Code Est Pt Level 3 (30281) Diagnoses Cellulitis and abscess of hand L03.119; L02.519
== END 2024-11-01 12:13 | disposition home or self-care (01) ==
PROVIDERS: PCP Internal Medicine; Visit Provider Physician Assistant
DX: L03.119 Cellulitis of unspecified part of limb (principal); L02.519 Cutaneous abscess of unspecified hand

== ENCOUNTER → 2024-11-01 11:02 | Outpatient (BNVA) | payer MEDICARE, SELFPAY | PROVIDERS: PCP Internal Medicine; Visit Provider Physician Assistant | DX: L02.512 Cutaneous abscess of left hand (principal) | CPT/HCPCS: 99212 ==

== ENCOUNTER 2024-11-02 06:18 | Outpatient (REF) | payer MEDICARE, SELFPAY ==
[2024-11-02 08:10] LABS: Alanine Aminotransferase 33 U/L (0-31); Albumin Level 4.0 g/dL (3.5-5.0); Alkaline Phosphatase 83 U/L (39-117); Anion Gap 11 (12-20); Aspartate Amino Transferase 26 U/L (5-31); Blood Urea Nitrogen 11 mg/dL (9-16); Calcium 9.4 mg/dL (8.4-10.2); Carbon Dioxide 28 mmol/L (22-29); Chloride 108 mmol/L (96-108); Cholesterol 202 mg/dL (<200); Estimated Glomerular Filt Rate > 60; HDL Cholesterol 56 mg/dL (>40); Potassium 4.1 mmol/L (3.3-5.1); Sodium 143 mmol/L (135-145); Total Protein 6.7 g/dL (6.5-8.0); Triglycerides 62 mg/dL (<150)
[2024-11-02 08:11] LABS: Thyroid Stimulating Hormone 2.70 uIU/mL (0.32-4.0)
== END 2024-11-02 06:19 | disposition home or self-care (01) ==
LOC: HO.LAB 06:18
PROVIDERS: PCP Internal Medicine; Visit Provider Internal Medicine
DX: Z00.00 Encounter for general adult medical examination without abnormal findings (principal); E06.3 Autoimmune thyroiditis; E78.5 Hyperlipidemia, unspecified
CPT/HCPCS: 36415; 80053; 80061; 84443

== ENCOUNTER 2024-11-17 11:27 | Outpatient (REF) | payer MEDICARE, SELFPAY ==
--- NOTE | ~2024-11-17 | MM_ITS ---
EXAMINATION: DXA BONE DENSITY AXIAL HISTORY: Z78.0 - Asymptomatic menopausal state TECHNIQUE: [employer] Dual energy absorptiometry (DEXA) of the lumbar spine, total left hip, and femoral neck was performed. COMPARISON: Comparison is made with the prior examination dated 09/10/2022. FINDINGS: The bone mineral density of the lumbar spine is 1.397 g/cm2, corresponding to a T-score of 1.8, and a Z-score of 2.7. This is indicative of normal bone mineral density. This represents a BMD change of 3.9% compared to the prior exam. This is statistically significant. The bone mineral density of the left total hip is 1.294 g/cm2, corresponding to a T-score of 2.3, and a Z-score of 2.9. This is indicative of normal bone mineral density. This represents a BMD change of 3.2% compared to the prior exam. This is statistically significant. The bone mineral density of the left femoral neck is 1.090 g/cm2, corresponding to a T-score of 0.4, and a Z-score of 1.4. This is indicative of normal bone mineral density. This represents a BMD change of 1.3% compared to the prior exam. FRACTURE RISK: The FRAX index suggests a ten year probability of major osteoporotic fracture of 5.7%, and of hip fracture 0.1%. MM/XR DEXA axial skeleton IMPRESSION: Based on bone mineral density, and according to World Health Organization (WHO) criteria, the diagnosis is consistent with normal bone mineral density. Statistically, 68% of repeat scans fall within 1 SD (+/- 0.010 g/cm2 for AP spine L1-L4) and 1 SD (+/- 0.012 g/cm2 for femur total) FRAX is a trademark of the [employer]'s [place] for Metabolic Bone Disease, a World Health Organization (WHO) Collaborating Center. Electronically signed by: Brett Crawford MD 11/17/2024 12:07 PM EDT
== END 2024-11-17 11:28 | disposition home or self-care (01) ==
LOC: HO.MAMMO 11:27
PROVIDERS: PCP Internal Medicine; Visit Provider Internal Medicine
DX: Z13.820 Encounter for screening for osteoporosis (principal); Z78.0 Asymptomatic menopausal state
CPT/HCPCS: 77080

== ENCOUNTER → 2024-11-17 11:28 | Outpatient (BNV) | payer MEDICARE, SELFPAY | PROVIDERS: PCP Internal Medicine; Visit Provider Radiology Diagnostic Radiology | DX: E28.39 Other primary ovarian failure (principal) | CPT/HCPCS: 77080 ==

== ENCOUNTER 2024-12-13 09:13 | Outpatient (AMB) | payer MEDICARE, SELFPAY ==
[2024-12-13 09:16] VITALS: BP 126/62; PULSE 75; O2SAT 99; BMI 37.4
--- NOTE | 2024-12-13 09:16 | MHC.OFFVIS ---
Vital Signs 12/13/24 09:16 Height 5 ft Weight 191 lb 6 oz BMI 37.4 BP 126/62 Blood Pressure Location Lt brachial Position Sitting Pulse 75 Pulse Source Pulse Oximeter Pulse Oximetry (%) 99 Oxygen Delivery Method Room Air Intake Visit Reasons: cough/ asthma Allergies cat dander (CAT) Allergy (Unknown, Verified 12/13/24 09:19) DIFFICULTY BREATHING HPI HPI cough/ asthma: Details: Janelle is a pleasant 64 year old female, former 10 pack year smoker, quit 10 years ago with underlying asthma. She has been well controlled on Advair and Xzyal, has not required albuterol MDI. Since the last visit she was diagnosed with thrush by dentist within the last few weeks however has yet to obtain antifungal due to insurance coverage. She denies any mouth pain, sores or throat irritation however notes increased mucus production. She denies any visits to urgent care or hospitalizations related to respiratory distress since the last visit. [facility] Medical History Osteoarthritis Surgical History Status post ablation of incompetent vein using laser History of appendectomy Family History Mother Cardiac arrest Father Poor circulation of extremity Family/Other Mental health disorder Substance use disorder Brother Prostate cancer Social History Housing: House Alcohol intake: current Alcohol intake frequency: a few times a week Alcohol type: other Patient Tobacco Use Status: Former Tobacco user Tobacco use type: Cigarette Cigarette Packs Per Day: 1 Years Smoked: 15 Quit 1993 e-Cigarette/Vaping Use: Never Used Second Hand Smoke Exposure: No service: No Current occupational status: retired Sexual orientation: Lesbian/Edouard/Homosexual Gender identity: Female Cognitive needs: No Hearing needs: No Vision needs: Yes Review of Systems Const Denies chills, Denies excessive sweating, Denies fever(s), Denies headache(s) and Denies night sweats Eyes Denies dry eyes, Denies irritation and Denies itchy eyes ENT Reports Normal hearing present, Denies headache(s), Denies nasal congestion, Denies nasal discharge, Denies post nasal drip and Denies sore throat Card Denies chest pain, Denies chest pain at rest, Denies chest pain with activity, Denies claudication, Denies leg edema, Denies dyspnea, Denies dyspnea on exertion, Denies orthopnea and Denies paroxysmal nocturnal dyspnea Resp Denies chest congestion, Denies excessive phlegm production, Denies pain on inspiration, Denies pain with cough, Denies dyspnea, Denies dyspnea on exertion, Denies stridor and Denies wheezing Musc Denies myalgias Neuro Reports Normal hearing present and Denies headache(s) Endo Denies excessive sweating Wing/Lymph Denies lymphadenopathy Aller/Immun Denies itchy eyes, Denies seasonal rhinorrhea and Denies wheezing Physical Exam Vital Signs: Last Vital Signs Pulse 75 12/13/24 09:16 BP 126/62 12/13/24 09:16 Pulse Ox 99 12/13/24 09:16 Oxygen Delivery Method Room Air 12/13/24 09:16 BMI result Body Mass Index 37.4 Const General: cooperative, healthy appearing, comfortable, no acute distress, well developed and alert Nutritional Appearance: obese Orientation/consciousness: patient oriented x3 Limitations: no limitations HEENT Other: raised white patches on softt palate Head: Yes normal to inspection, Yes normocephalic and Yes atraumatic Ears: hearing grossly normal bilaterally and external ears normal Eyes General: appearance normal, both eyes and all related structures Eyelids: Yes eyelids normal Sclerae: sclerae normal EOM: EOMs intact bilaterally Neck Neck: Yes normal visual inspection and Yes no lymphadenopathy Lymphatic: no lymphadenopathy noted Chest Chest palpation & inspection: normal inspection of the chest Resp Effort & Inspection: normal respiratory effort, able to speak in complete sentences, no audible wheezes, no cough, no stridor, not tachypneic, no tripod positioning and no use of accessory muscles Auscultation: clear to auscultation bilaterally Cardio Jugular venous distension: no JVD Rate: regular rate Rhythm: regular rhythm Skin Other: warm, dry General skin exam: no rashes or lesions noted Neuro General: patient oriented x3 Cranial nerves: Yes Normal hearing present Cognition (Neuro): normal cognition Gait exam (Neuro): Normal gait present Extrem General: Yes normal to inspection, Yes capillary refill normal, Yes no clubbing, cyanosis or edema and Yes no pedal edema Psych Appearance: grossly normal and well kempt Speech and movement: Normal speech and movement present and Clear speech present Affect: normal affect Attitude: cooperative Thought process: Normal thought process present Thought content: Normal thought content present Insight: Good insight present (Psych) Judgement: Good judgement present (Psych) Assessment & Plan Assessment & Plan (1) Asthma: Code(s): J45.909 - Unspecified asthma, uncomplicated Category: Medical (2) Environmental allergies: Code(s): Z91.09 - Other allergy status, other than to drugs and biological substances Category: Medical Plan At this time, Janelle reports good control of respiratory symptoms on current regimen, advised to continue. Will treat patient for thrush with nystatin, instructed to swish and swallow. She is aware to call if symptoms do not improve or worsen. All questions were answered and patient is in agreement of plan. Will follow up in 6 months or sooner if needed. Medications: New nystatin administer 1/2 of dose in each side of the mouth 400,000 units (4 mL) buccal QID 250 mL 0RF Coding Level of Care Code Est Pt Level 4 (03352) Diagnoses Asthma J45.909 Environmental allergies Z91.09
--- OUTSIDE RECORDS SUMMARY | 2024-12-13 10:18 | XMS_ITS | Data Portability ---
Author Organization [facility] [address] Address [address] [place] [address] Assessment No assessment recorded. Plan of Treatment Reminders Order Date Submit Date Provider Last Modified By Organization Details Last Modified Time Details Appointments None recorded. Lab None recorded. Referral None recorded. Procedures None recorded. Surgeries None recorded. Imaging None recorded. Medication Orders cephalexin 500 mg capsule 2022 023 [facility] #[id number], [address] [place], [place], [id number], 3 10:50:32 cephalexin 500 mg capsule 2022 023 [facility][id number], [address], [place], [id number], 3 19:35:09 Patient TargetsNo targets recorded. Patient Instructions Encounter Date Encounter Id Patient Instructions Last Modified By Organization Details Last Modified Time 08/28/2022 [id number] cellulitis: care instructions [email or web address] Not available 08/28/2022 19:34:54 Based on your [...] that are tender Thank you for using [facility] today, please don't hesitate to call or reach out to us if you have any questions or concerns. [email or web address] Not available 08/28/2022 19:34:53 09/11/2022 [id number] cellulitis: care instructions Not available 09/11/2022 10:50:22 [...] your doctor if you can take an godj-snj-bmgcsmn medicine. [email or web address] Not available 09/11/2022 10:50:21 Go to the [...] further evaluation and possibily rule out DVT. [email or web address] Not available 09/11/2022 10:50:16 Reason for Referral None Reported. Problems Name Problem SNOMED Code Status Onset Date Resolution Date Notes Provider Name and Address Organization Details Recorded Time Arthritis [id number] Active 023 PAM Carbajal - [facility] [...] Not Available Not Available Vitals Date Recorded Systolic And Diastolic Provider Name and Address Organization Details Last Updated DateTime 08/28/2022 140/90 mm[Hg] PAM MANCERA [address] [place], [place] [address]Fr[place], [address], [place] [employer] 08/28/2022 19:38:53 Date Recorded Body height Body mass index (BMI) Body weight Pain severity - 0-10 verbal numeric rating [Score] - Reported Respiratory rate Oxygen saturation Oxygen saturation in Arterial blood by Pulse oximetry Heart rate Body temperature Systolic And Diastolic Provider Name and Address Organization Details Last Updated DateTime 3 152.4 cm 36.1 kg/m2 07162.5 9 g 0 20 /min 97 % 97 % 72 /min 97.6 [degF] 142/93 mm[Hg] Mahnaz Palomares [facility] 3 19:03:20 Date Recorded Body height Body mass index (BMI) Body weight Pain severity - 0-10 verbal numeric rating [Score] - Reported Oxygen saturation Oxygen saturation in Arterial blood by Pulse oximetry Heart rate Respiratory rate Body temperature Systolic And Diastolic Provider Name and Address Organization Details Last Updated DateTime 3 152.4 cm 36.1 kg/m2 40070.5 9 g 0 97 % 97 % 70 /min 16 /min 98.1 [degF] 143/86 mm[Hg] CIERA JARAMILLO [place] [employer] 3 10:18:42 Social History Question Answer Notes LastModified by Organizat ion Details LastModified Time Tobacco Smoking Status Never Smoker Mahnaz ugarte [facility] 08/28/2022 19:01:43 Have You Had Direct Contact, Or Contact During Intimacy, With Monkeypox Rash, Scabs, Or Body Fluids From A Person With Monkeypox? No Information not available 08/28/2022 Have You Recently Traveled Abroad? No Information not available 08/28/2022 Sex: Unknown Functional Status Question Answer Note LastModified by Organizat ion Details LastModified Time Do you use any illicit or recreational drugs? No Information not available 08/28/2022 Do you or have you ever used any other forms of tobacco or nicotine? No Information not available 08/28/2022 What is your level of alcohol consumption? Occasional Information not available 08/28/2022 Mental Status None recorded. Family History Relationship [...] Diagnosis SNOMED-CT Code Diagnosis ICD10 Code Diagnosis IMO Codes Diagnosis Note [id number] [address] [facility] [address] [place] [address] 11/20/2018 08:49:03 11/20/2018 09:04:00 [id number] PAM MANCERA [address] [place] [address] 08/28/2022 18:49:00 08/28/2022 19:37:25 Cellulitis of lower leg 888948746 L03.119 Elevated blood-pressure reading without diagnosis of hypertension 429933823 R03.0 You blood pressure was elevated during [...] to discuss the results of your journal. [id number] Bong Mujica [place] [address] [facility] [address] [place] [phone] 09/11/2022 09:58:30 09/11/2022 10:57:25 Varicose veins of lower extremity [id number] I83.891 strongly encouraged to follow up with vascular speciality as scheduled. Cellulitis of right lower limb [id number] 7825130 L03.115 Health Concerns Section Related Observation LastModified by Organization Detai ls LastModified Time None Recorded Concern Status LastModified by Organization Details LastModified Time None Recorded Advance Directives Directive None Recorded Payers Insurance Date Sequence Insurance Name Policy Number Policy Huffman Covered Member ID Huffman Member ID Guarantor Name 09/11/[address] [place] [address] [id number] Janelle Paz Loera [id number] Janelle Loera Notes Date Note Type Note Provider Name and Address Organization Details Recorded Time 08/29/19 23 text/htm l UC Rash/Skin LesionReported by PatientHPIFor quality, patient reportsred(was itchy now not. becoming more red.). For context, patient reportsrecent outdoor activity. For source of patient information, patient reportsinformation obtained from patientandpatient arrived at urgent care ambulatory. For location, patient reportslegs(left anterior lower yarbrough.). For severity, patient reportsmild. For duration, patient reports2 days. For alleviating factors, patient reportssteroid cream. For associated symptoms, patient reportsno feverandno fatigue.The patient reports was out watering her flower [...] history of cellulitis. PAM MANCERA [address], [place], [address], [place] [facility] 08/28/2022 19:39:22 09/12/19 23 text/htm l Skin Redness UCReported by PatientSkin Redness UCFor quality, patient reportserythematousandwarmbut reportsnot painful. For severity, patient reportsmildandworsening. For alleviating factors, patient reportsnothing gives relief. For symptoms, patient reportsswellingbut reportsno fever,no nausea, andno vomiting. For location, patient reportsbilateral legs(4 x 4 cm red patch on medial surface of right lower leg. have dependent edema bilateral legs 2+ . patient was previously treated for cellulitis on the left lower leg which responded better. patient had ultrasound done and is working with vascular specialist for her varicose veins. this redness appear 2-3 days ago and patient thinks maybe it is poison whitney or poison oak.). For duration, patient reports3 __. For onset, patient reportsgradual onset. For aggravating factors, patient reportsstanding. Bong Mujica NP [address] [place], [address], [employer] [facility] 09/11/2022 10:55:44 OBGyn Episode No OBEpisode recorded.
== END 2024-12-13 09:42 | disposition home or self-care (01) ==
LOC: HO.HPSW 09:15
PROVIDERS: PCP Internal Medicine; Visit Provider Nurse Practitioner Family
DX: J45.909 Unspecified asthma, uncomplicated (principal); Z91.09 Other allergy status, other than to drugs and biological substances
CPT/HCPCS: 99214

== ENCOUNTER → 2024-12-13 09:13 | Outpatient (BNVA) | payer MEDICARE, SELFPAY | PROVIDERS: PCP Internal Medicine; Visit Provider Nurse Practitioner Family | DX: J45.909 Unspecified asthma, uncomplicated (principal); Z91.09 Other allergy status, other than to drugs and biological substances; Z87.891 Personal history of nicotine dependence | CPT/HCPCS: 99212 ==